=== PATIENT | female | born 1995 | race Two or more races ===

== ENCOUNTER 2020-11-18 10:48 | Outpatient (REF) | payer OTHER, SELFPAY ==
[2020-11-18 11:07] LABS: COVID-19 Test Negative (Negative)
== END 2020-11-18 10:49 | disposition home or self-care (01) ==
LOC: HO.EMPCOV 10:48
PROVIDERS: Visit Provider Internal Medicine
DX: Z20.822 Contact with and (suspected) exposure to COVID-19 (principal)
CPT/HCPCS: 36415; 87635; C9803

== ENCOUNTER 2020-11-24 07:45 | Outpatient (REF) | payer OTHER, SELFPAY ==
[2020-11-24 08:08] LABS: COVID-19 Test Negative (Negative)
== END 2020-11-24 07:46 | disposition home or self-care (01) ==
LOC: HO.EMPCOV 07:45
PROVIDERS: Visit Provider Internal Medicine
DX: Z20.822 Contact with and (suspected) exposure to COVID-19 (principal)
CPT/HCPCS: 36415; 87635; C9803

== ENCOUNTER 2020-12-28 08:38 | Outpatient (REF) | payer OTHER, SELFPAY ==
[2020-12-28 08:58] LABS: COVID-19 Test Negative (Negative)
== END 2020-12-28 08:39 | disposition home or self-care (01) ==
LOC: HO.EMPCOV 08:38
PROVIDERS: Visit Provider Internal Medicine
DX: Z20.822 Contact with and (suspected) exposure to COVID-19 (principal)
CPT/HCPCS: 36415; 87635; C9803

== ENCOUNTER 2021-02-23 08:47 | Outpatient (REF) | payer OTHER, SELFPAY ==
[2021-02-23 09:25] LABS: COVID-19 Test Negative (Negative)
== END 2021-02-23 08:48 | disposition home or self-care (01) ==
LOC: HO.EMPCOV 08:47
PROVIDERS: Visit Provider Internal Medicine
DX: Z20.822 Contact with and (suspected) exposure to COVID-19 (principal)
CPT/HCPCS: 36415; 87635; C9803

== ENCOUNTER 2021-03-11 20:34 | Emergency (ER) | payer SELFPAY ==
[2021-03-11 20:49] VITALS: BP 139/58; PULSE 77; RESP 18; TEMP 37; O2SAT 95; BMI 31.6
[2021-03-11 22:13] LABS: MANUAL DIFF FLAG NO
[2021-03-11 22:15] LABS: Basophils Percent Auto 0.2 % (0-2); Eosinophils Absolute Auto 0.1 X10*3/uL (0.0-0.4); Eosinophils Percent Auto 0.9 % (0-4); Hematocrit 41.8 % (37-47); Hemoglobin 13.4 g/dl (12.0-16.0); Imm Gran Abs Auto 0.04 X10*3/uL (0.00-0.03); Imm Gran Pct Auto 0.3 % (0.0-0.4); Lymphocytes Percent Auto 25.8 % (20-40); Mean Corpuscular HGB Conc 32.1 g/dl (31.0-35.0); Mean Corpuscular Hemoglobin 28.5 pg (27.0-33.0); Mean Corpuscular Volume 88.7 fL (80-98); Mean Platelet Volume 9.2 fL (9.4-12.3); Monocytes Absolute Auto 0.5 X10*3/uL (0.1-1.2); Monocytes Percent Auto 4.5 % (2-11); Neutrophils Percent Auto 68.3 % (45-73); Platelet Count 326 X10*3/uL (160-400); Red Blood Count 4.71 X10*6/uL (4.20-5.50); Red Cell Distribution Width 13.4 % (11.0-16.0); White Blood Count 11.7 X10*3/uL (4.8-10.8)
[2021-03-11 22:28] LABS: UPreg QC Valid YES; Urine Pregnancy NEGATIVE (NEGATIVE)
[2021-03-11 22:29] LABS: Appearance Urine CLEAR; Color Urine STRAW; Glucose Urine UA NEG (NEG); Leukocyte Esterase Urine NEG (NEG); Nitrite Urine NEG (NEG); Specific Gravity - Urine 1.015 (1.005-1.025); Urine Blood NEG (NEG); Urine Ketones NEG (NEG); Urine Protein NEG (NEG-TRACE)
[2021-03-11 22:45] LABS: Alanine Aminotransferase 20 U/L (0-31); Albumin Level 4.5 g/dL (3.5-5.0); Alkaline Phosphatase 92 U/L (39-117); Anion Gap 13 (12-20); Aspartate Amino Transferase 16 U/L (5-31); Bilirubin Total 0.5 mg/dL (0.0-1.0); Blood Urea Nitrogen 9 mg/dL (9-16); Calcium 9.8 mg/dL (8.4-10.2); Carbon Dioxide 25 mmol/L (22-29); Chloride 105 mmol/L (96-108); Creatinine Clr Calc Pharmacy 126.6; Estimated Glomerular Filt Rate > 60; Glucose Random 93 mg/dL (60-115); Potassium 3.9 mmol/L (3.3-5.1); Sodium 139 mmol/L (135-145); Total Protein 7.7 g/dL (6.5-8.0)
--- NOTE | 2021-03-11 23:03 | ED_ITS ---
HPI - General Adult General Chief complaint: General Medical Stated complaint: Blood in stools Time Seen by Provider: 03/11/21 21:40 Source: patient Mode of arrival: ambulatory History of Present Illness HPI narrative: This is a 26-year-old female without significant past medical history who reports vaginal discomfort for 3 weeks, she is unable to describe the discomfort further other than itching, and denies any associated fever, chills, sore throat, shortness of breath, GI symptoms. In addition, she describes multiple episodes of diarrhea today with the last episode describing some small amount of blood on the toilet paper. Otherwise, she denies any nausea, vomiting, abdominal pain, back pain. LMP-1.5 years ago (has a Nexplanon in place). Related Data Previous Rx's Medication Instructions Recorded amoxicillin 875 mg-potassium 1 tab PO BID 10 Days #20 tab 02/23/21 clavulanate 125 mg tablet dexamethasone 4 mg tablet 10 mg PO DAILY 1 Days #3 tab 02/23/21 Allergies Allergy/AdvReac Type Severity Reaction Status Date / Time No Known Allergies Allergy Verified 03/11/21 20:56 Review of Systems Review of Systems: Pertinent positives and negatives as stated in HPI 10 point review of systems otherwise negative. PMFSH Past Medical History Source: nursing notes reviewed Social History Social History Alcohol intake: never Smoking Status: Never smoker Use of substances other than those prescribed or required for medical reasons: No Advance Directives: No Patient : No Physical Exam Vital Signs: Vital Signs: Last Vital Signs Temp 98.6 F 03/11/21 20:49 Pulse 77 03/11/21 20:49 Resp 18 03/11/21 20:49 BP 139/58 L 03/11/21 20:49 Pulse Ox 95 03/11/21 20:49 Body Mass Index 31.6 VITAL SIGNS: Reviewed. GENERAL: Well developed, well nourished, in no acute distress. HEAD: Normocephalic/atraumatic EYES: PERRLA, EOMI OROPHARYNX: no oral lesions noted, posterior pharynx clear NECK: Supple, no adenopathy LUNGS: Normal breath sounds. No adventitious sounds or accessory muscle use. S pO2<95> CARDIOVASCULAR: Regular rate and rhythm without noted murmurs ABDOMEN: Soft, non-tender, non-distended with bowel sounds. NEUROLOGIC: Alert and oriented x 4. Course Course Course Narrative: 26-year-old female with history and clinical presentation of multiple medical concerns. Will evaluate with basic labs and urinalysis but feel that in the absence of dehydration patient is able to be discharged as the diarrhea will likely be self-limiting and patient has been able to tolerate liquids and solids without difficulty. Suspect that the small amount of blood on wiping after bowel movement is secondary to minor/transient hemorrhoid. Patient will be empirically treated with a single dose of Diflucan for vaginal itching. Patient discharged in stable condition after review of all investigations negative for any acute findings. Medical Decision Making Lab Data Result diagrams: 03/11/21 22:07 03/11/21 22:07 Labs: Lab Results 03/11/21 03/11/21 03/11/21 Range/Units 22:07 22:07 22:07 WBC 11.7 H (4.8-10.8) X10*3/uL RBC 4.71 (4.20-5.50) X10*6/uL Hgb 13.4 (12.0-16.0) g/dl Hct 41.8 (37-47) % MCV 88.7 (80-98) fL MCH 28.5 (27.0-33.0) pg MCHC 32.1 (31.0-35.0) g/dl RDW 13.4 (11.0-16.0) % Plt Count 326 (160-400) X10*3/uL MPV 9.2 L (9.4-12.3) fL Immature Gran % (Auto) 0.3 (0.0-0.4) % Neut % (Auto) 68.3 (45-73) % Lymph % (Auto) 25.8 (20-40) % [place] % (Auto) 4.5 (2-11) % Eos % (Auto) 0.9 (0-4) % Baso % (Auto) 0.2 (0-2) % Lymph # (Auto) 3.0 (1.2-4.9) X10*3/uL [place] # (Auto) 0.5 (0.1-1.2) X10*3/uL Eos # (Auto) 0.1 (0.0-0.4) X10*3/uL Baso # (Auto) 0.0 (0.0-0.2) X10*3/uL Abs Immat Gran (auto) 0.04 H (0.00-0.03) X10*3/uL Absolute Neuts (auto) 8.0 (2.0-8.3) X10*3/uL Absolute Nucleated RBC 0.000 (0.0-0.012) X10*3/uL Nucleated RBC % (auto) 0.0 (0.0-0.2) /100WBC Sodium 139 (135-145) mmol/L Potassium 3.9 (3.3-5.1) mmol/L Chloride 105 (96-108) mmol/L Carbon Dioxide 25 (22-29) mmol/L Anion Gap 13 (12-20) BUN 9 (9-16) mg/dL Creatinine 0.71 (0.5-1.4) mg/dL Estim Creat Clear Calc 126.6 Estimated GFR > 60 Random Glucose 93 (60-115) mg/dL Calcium 9.8 (8.4-10.2) mg/dL Total Bilirubin 0.5 (0.0-1.0) mg/dL AST 16 (5-31) U/L ALT 20 (0-31) U/L Alkaline Phosphatase 92 (39-117) U/L Total Protein 7.7 (6.5-8.0) g/dL Albumin 4.5 (3.5-5.0) g/dL Urine Color STRAW Urine Appearance CLEAR Urine pH 7.0 (5.0-8.0) Ur Specific [place] 1.015 (1.005-1.025) Urine Protein NEG (NEG-TRACE) MG/DL Urine Glucose (UA) NEG (NEG) MG/DL Urine Ketones NEG (NEG) MG/DL Urine Blood NEG (NEG) Urine Nitrite NEG (NEG) Ur Leukocyte Esterase NEG (NEG) Urine Test (NEGATIVE) 03/11/21 Range/Units 22:07 WBC (4.8-10.8) X10*3/uL RBC (4.20-5.50) X10*6/uL Hgb (12.0-16.0) g/dl Hct (37-47) % MCV (80-98) fL MCH (27.0-33.0) pg MCHC (31.0-35.0) g/dl RDW (11.0-16.0) % Plt Count (160-400) X10*3/uL MPV (9.4-12.3) fL Immature Gran % (Auto) (0.0-0.4) % Neut % (Auto) (45-73) % Lymph % (Auto) (20-40) % [place] % (Auto) (2-11) % Eos % (Auto) (0-4) % Baso % (Auto) (0-2) % Lymph # (Auto) (1.2-4.9) X10*3/uL [place] # (Auto) (0.1-1.2) X10*3/uL Eos # (Auto) (0.0-0.4) X10*3/uL Baso # (Auto) (0.0-0.2) X10*3/uL Abs Immat Gran (auto) (0.00-0.03) X10*3/uL Absolute Neuts (auto) (2.0-8.3) X10*3/uL Absolute Nucleated RBC (0.0-0.012) X10*3/uL Nucleated RBC % (auto) (0.0-0.2) /100WBC Sodium (135-145) mmol/L Potassium (3.3-5.1) mmol/L Chloride (96-108) mmol/L Carbon Dioxide (22-29) mmol/L Anion Gap (12-20) BUN (9-16) mg/dL Creatinine (0.5-1.4) mg/dL Estim Creat Clear Calc Estimated GFR Random Glucose (60-115) mg/dL Calcium (8.4-10.2) mg/dL Total Bilirubin (0.0-1.0) mg/dL AST (5-31) U/L ALT (0-31) U/L Alkaline Phosphatase (39-117) U/L Total Protein (6.5-8.0) g/dL Albumin (3.5-5.0) g/dL Urine Color Urine Appearance Urine pH (5.0-8.0) Ur Specific [place] (1.005-1.025) Urine Protein (NEG-TRACE) MG/DL Urine Glucose (UA) (NEG) MG/DL Urine Ketones (NEG) MG/DL Urine Blood (NEG) Urine Nitrite (NEG) Ur Leukocyte Esterase (NEG) Urine Test NEGATIVE (NEGATIVE) Discharge Plan Discharge Clinical Impression: Vaginitis Patient Disposition: Home, Self-Care Instructions: Yeast Infection (ED) Additional Instructions: Return to the emergency room for any acute worsening symptoms. You must follow up with the primary care provider in the next 2-3 days. Prescriptions: No Action amoxicillin-pot clavulanate [Augmentin] 875-125 mg tablet 1 tab PO BID 10 Days Qty: 20 RF: 0 dexamethasone [Decadron] 4 mg tablet 10 mg PO DAILY 1 Days Qty: 3 RF: 0 Referrals: Physician,None [Primary Care Provider] - 2 days
[2021-03-11] MEDS: Fluconazole 150 MG TABLET PO (23:35)
== END 2021-03-11 23:41 | disposition home or self-care (01) ==
PROVIDERS: Emergency Provider Student in an Organized Health Care Education/Training Program
DX: N76.0 Acute vaginitis (principal); K92.1 Melena; Z79.899 Other long term (current) drug therapy
CPT/HCPCS: 36415; 80053; 81003; 81025; 85025; 99284

== ENCOUNTER 2021-05-20 10:20 | Emergency (ER) | payer OTHER, SELFPAY ==
--- NOTE | ~2021-05-20 | CT_ITS ---
EXAMINATION: CT ABDOMEN AND PELVIS WITHOUT CONTRAST CLINICAL INFORMATION: Right flank pain. COMPARISON: None TECHNIQUE: Multidetector volumetric imaging was performed from the superior aspect of the liver through the pubic symphysis. Sagittal and coronal reformatted images were obtained on the technologist's workstation. This CT examination was performed using dose optimization techniques as appropriate, variously including the following: *Automated exposure control *Adjustment of mA and/or kV according to patient size (this includes techniques or standardized protocols for targeted exams where dose is matched to indication/reason for exam; i.e. extremities or head) *Use of iterative reconstruction technique DLP: 796 mGy-cm FINDINGS: LUNG BASES: The visualized lung bases are unremarkable. LIVER, GALLBLADDER, AND BILIARY TREE: The liver is normal in size, shape, and attenuation. No focal hepatic lesion or biliary ductal dilatation is present. The gallbladder is unremarkable with no evidence of radiopaque gallstones, gallbladder wall thickening, or obvious pericholecystic inflammatory changes. PANCREAS: Unremarkable. SPLEEN: Unremarkable. ADRENAL GLANDS: Unremarkable. KIDNEYS AND URETERS: The kidneys are normal in size, shape, and attenuation. No hydronephrosis, hydroureter, or calculi seen. No perinephric stranding. BLADDER: Nondistended and unremarkable. GASTROINTESTINAL TRACT: The small and large bowel are unremarkable. The appendix is unremarkable. ABDOMINAL WALL: No significant hernia is appreciated. LYMPH NODES: Normal. VASCULAR: Unremarkable. PELVIC VISCERA: The uterus and adnexa are unremarkable. OSSEOUS STRUCTURES: Unremarkable. CT/CT abdomen pelvis wo con IMPRESSION: 1. No renal or ureteral stone. No hydronephrosis or hydroureter. Nondistended and unremarkable urinary bladder. 2. Otherwise unremarkable examination.
[2021-05-20 10:24] VITALS: BP 128/65; PULSE 70; RESP 16; TEMP 36.8; O2SAT 99; BMI 30.7
--- NOTE | 2021-05-20 10:54 | ED_ITS ---
HPI - Abdominal Pain General Chief Complaint: Abdominal Pain Stated Complaint: abd pain Time Seen by Provider: 05/20/21 10:36 Source: patient Mode of arrival: ambulatory Limitations: no limitations History of Present Illness HPI narrative: Patient comes to emergency room complaining of right-sided flank pain, right lower quadrant pain, diarrhea and vomiting. Patient states approximately at 01:30 in the morning, patient had a sudden sharp intense pain in the right flank, had diarrhea and vomiting at the same time, the symptoms lasted for about 30 minutes and then they self-resolved. Patient went back to sleep. When she woke up in the morning, she had another similar episode. Patient has never had kidney stones, but states that multiple family members have history of kidney stones. Patient denies fever or chills Related Data Previous Rx's Medication Instructions Recorded amoxicillin 875 mg-potassium 1 tab PO BID 10 Days #20 tab 02/23/21 clavulanate 125 mg tablet dexamethasone 4 mg tablet 10 mg PO DAILY 1 Days #3 tab 02/23/21 hyoscyamine sulfate 0.125 mg PO QID PRN #7 tab 05/20/21 Allergies Allergy/AdvReac Type Severity Reaction Status Date / Time No Known Allergies Allergy Verified 03/11/21 20:56 Review of Systems Review of Systems Constitutional : No Weight loss, No Fever, No Chills, No Night Sweats, No Fatigue, No Malaise ENT/Mouth : No Hearing loss, No Ear Pain, No Nasal Congestion, No Sinus Pain, No Hoarseness, No sore throat, No Rhinorrhea, No Swallowing Difficulty Eyes: No Eye Pain, No Swelling, No Redness, No Foreign Body, No Discharge, No Vision Changes Cardiovascular : No Chest Pain, No SOB, No Dyspnea on Exertion, No Orthopnea, No Edema, No Palpitations Respiratory : No Cough, No Sputum, No Wheezing, No Smoke Exposure, No Dyspnea Gastrointestinal : Complaining of multiple episodes of nausea vomiting and diarrhea, No Constipation, complaining of intermittent sharp pain in the right flank, No Hematochezia, No Melena Genitourinary : no irregular bleeding, No Dysuria, No Urinary Frequency, No Hematuria, No Urinary Incontinence, No Urgency, No Flank Pain, No Urinary Flow Changes, No Hesitancy Musculoskeletal : No joint pain, No Myalgias, No Joint Swelling Skin : No Skin Lesions, No rash Neuro : No Weakness, No Numbness, No Paresthesias, No Loss of Consciousness, No Dizziness, No Headache Psych : No Anxiety/Panic, No Depression, No SI/HI/AH/VH, No Social Issues, Heme/Lymph: No Bruising, No Bleeding,No Lymphadenopathy Endocrine : No Polyuria, No Polydipsia, No Temperature Intolerance Physical Exam Vital Signs: Vital Signs: Last Vital Signs Temp 98.3 F 05/20/21 10:24 Pulse 68 05/20/21 11:49 Resp 16 05/20/21 10:24 BP 115/60 05/20/21 11:49 Pulse Ox 95 05/20/21 11:49 Body Mass Index 30.7 Appearance: Alert. Oriented X3. No acute distress. Well-appearing Eyes: Pupils equal, round and reactive to light. ENT: Pharynx normal. Neck: Normal inspection. Neck supple. No lymph nodes noted. No crepitus CVS: Normal heart rate and rhythm. Pulses normal. Normal S1 and S2 Respiratory: No respiratory distress. Breath sounds normal. No Wheezing. No rales Abdomen: Soft and nontender. No rigidity. No distention. No guarding, no rebound. Seems to have mild CVA tenderness bilaterally Skin: Skin warm and dry. Normal skin color. Normal skin turgor. Extremities: No lower extremity edema. No lower extremity edema. No Lacerations. No Rash Neuro: Oriented X 3. No motor deficit. No sensory deficit. Moving all extermities. No slurred speech. Course Reevaluation(s) Reevaluation #2: Patient is asymptomatic. Not having any abdominal pain, vomiting or diarrhea. I discussed labs and CT scan with the patient, no acute findings. MDM - Abdominal Pain Lab Data Result diagrams: 05/20/21 11:07 05/20/21 11:07 Labs: Lab Results 05/20/21 05/20/21 05/20/21 Range/Units 10:41 10:41 11:07 WBC 9.4 (4.8-10.8) X10*3/uL RBC 4.66 (4.20-5.50) X10*6/uL Hgb 13.8 (12.0-16.0) g/dl Hct 41.2 (37-47) % MCV 88.4 (80-98) fL MCH 29.6 (27.0-33.0) pg MCHC 33.5 (31.0-35.0) g/dl RDW 13.3 (11.0-16.0) % Plt Count 305 (160-400) X10*3/uL MPV 9.1 L (9.4-12.3) fL Immature Gran % (Auto) 0.2 (0.0-0.4) % Neut % (Auto) 69.2 (45-73) % Lymph % (Auto) 25.0 (20-40) % [place] % (Auto) 4.7 (2-11) % Eos % (Auto) 0.7 (0-4) % Baso % (Auto) 0.2 (0-2) % Lymph # (Auto) 2.4 (1.2-4.9) X10*3/uL [place] # (Auto) 0.4 (0.1-1.2) X10*3/uL Eos # (Auto) 0.1 (0.0-0.4) X10*3/uL Baso # (Auto) 0.0 (0.0-0.2) X10*3/uL Abs Immat Gran (auto) 0.02 (0.00-0.03) X10*3/uL Absolute Neuts (auto) 6.5 (2.0-8.3) X10*3/uL Absolute Nucleated RBC 0.000 (0.0-0.012) X10*3/uL Nucleated RBC % (auto) 0.0 (0.0-0.2) /100WBC Sodium (135-145) mmol/L Potassium (3.3-5.1) mmol/L Chloride (96-108) mmol/L Carbon Dioxide (22-29) mmol/L Anion Gap (12-20) BUN (9-16) mg/dL Creatinine (0.5-1.4) mg/dL Estim Creat Clear Calc Estimated GFR Random Glucose (60-115) mg/dL Calcium (8.4-10.2) mg/dL Total Bilirubin (0.0-1.0) mg/dL Direct Bilirubin (0.0-0.5) mg/dL AST (5-31) U/L ALT (0-31) U/L Alkaline Phosphatase (39-117) U/L Total Protein (6.5-8.0) g/dL Albumin (3.5-5.0) g/dL Urine Color YELLOW Urine Appearance CLEAR Urine pH 6.0 (5.0-8.0) Ur Specific [place] 1.025 (1.005-1.025) Urine Protein NEG (NEG-TRACE) MG/DL Urine Glucose (UA) NEG (NEG) MG/DL Urine Ketones NEG (NEG) MG/DL Urine Blood NEG (NEG) Urine Nitrite NEG (NEG) Ur Leukocyte Esterase NEG (NEG) Urine Test NEGATIVE (NEGATIVE) 05/20/21 Range/Units 11:07 WBC (4.8-10.8) X10*3/uL RBC (4.20-5.50) X10*6/uL Hgb (12.0-16.0) g/dl Hct (37-47) % MCV (80-98) fL MCH (27.0-33.0) pg MCHC (31.0-35.0) g/dl RDW (11.0-16.0) % Plt Count (160-400) X10*3/uL MPV (9.4-12.3) fL Immature Gran % (Auto) (0.0-0.4) % Neut % (Auto) (45-73) % Lymph % (Auto) (20-40) % [place] % (Auto) (2-11) % Eos % (Auto) (0-4) % Baso % (Auto) (0-2) % Lymph # (Auto) (1.2-4.9) X10*3/uL [place] # (Auto) (0.1-1.2) X10*3/uL Eos # (Auto) (0.0-0.4) X10*3/uL Baso # (Auto) (0.0-0.2) X10*3/uL Abs Immat Gran (auto) (0.00-0.03) X10*3/uL Absolute Neuts (auto) (2.0-8.3) X10*3/uL Absolute Nucleated RBC (0.0-0.012) X10*3/uL Nucleated RBC % (auto) (0.0-0.2) /100WBC Sodium 139 (135-145) mmol/L Potassium 4.7 D (3.3-5.1) mmol/L Chloride 106 (96-108) mmol/L Carbon Dioxide 26 (22-29) mmol/L Anion Gap 12 (12-20) BUN 10 (9-16) mg/dL Creatinine 0.76 (0.5-1.4) mg/dL Estim Creat Clear Calc 121.0 Estimated GFR > 60 Random Glucose 95 (60-115) mg/dL Calcium 10.3 H (8.4-10.2) mg/dL Total Bilirubin 0.9 (0.0-1.0) mg/dL Direct Bilirubin 0.3 (0.0-0.5) mg/dL AST 15 (5-31) U/L ALT 17 (0-31) U/L Alkaline Phosphatase 94 (39-117) U/L Total Protein 7.8 (6.5-8.0) g/dL Albumin 4.5 (3.5-5.0) g/dL Urine Color Urine Appearance Urine pH (5.0-8.0) Ur Specific [place] (1.005-1.025) Urine Protein (NEG-TRACE) MG/DL Urine Glucose (UA) (NEG) MG/DL Urine Ketones (NEG) MG/DL Urine Blood (NEG) Urine Nitrite (NEG) Ur Leukocyte Esterase (NEG) Urine Test (NEGATIVE) Imaging Data CT scan - abdomen: Radiologist's impression: FINDINGS: LUNG BASES: The visualized lung bases are unremarkable. LIVER, GALLBLADDER, AND BILIARY TREE: The liver is normal in size, shape, and attenuation. No focal hepatic lesion or biliary ductal dilatation is present. The gallbladder is unremarkable with no evidence of radiopaque gallstones, gallbladder wall thickening, or obvious pericholecystic inflammatory changes. PANCREAS: Unremarkable. SPLEEN: Unremarkable. ADRENAL GLANDS: Unremarkable. KIDNEYS AND URETERS: The kidneys are normal in size, shape, and attenuation. No hydronephrosis, hydroureter, or calculi seen. No perinephric stranding. BLADDER: Nondistended and unremarkable. GASTROINTESTINAL TRACT: The small and large bowel are unremarkable. The appendix is unremarkable. ABDOMINAL WALL: No significant hernia is appreciated. LYMPH NODES: Normal. VASCULAR: Unremarkable. PELVIC VISCERA: The uterus and adnexa are unremarkable. OSSEOUS STRUCTURES: Unremarkable. CT/CT abdomen pelvis wo con IMPRESSION: 1. No renal or ureteral stone. No hydronephrosis or hydroureter. Nondistended and unremarkable urinary bladder. 2. Otherwise unremarkable examination. Discharge Plan Discharge Clinical Impression: Abdominal pain, Flank pain Patient Disposition: Home, Self-Care Instructions: Abdominal Pain (ED), Flank Pain (ED) Additional Instructions: Please follow-up with your primary care physician tomorrow. If you have any worsening or new symptoms, please return to the emergency room or call 911 Prescriptions: New hyoscyamine sulfate 0.125 mg tablet 0.125 mg PO QID PRN (Reason: dyspepsia) Qty: 7 RF: 0 No Action amoxicillin-pot clavulanate [Augmentin] 875-125 mg tablet 1 tab PO BID 10 Days Qty: 20 RF: 0 dexamethasone [Decadron] 4 mg tablet 10 mg PO DAILY 1 Days Qty: 3 RF: 0 PMFSH Social History Social History Alcohol intake: never Advance Directives: No Advance Directives Information Provided: No
[2021-05-20 10:55] LABS: Glucose Urine UA NEG (NEG); Leukocyte Esterase Urine NEG (NEG); Nitrite Urine NEG (NEG); Specific Gravity - Urine 1.025 (1.005-1.025); Urine Blood NEG (NEG); Urine Ketones NEG (NEG); Urine Protein NEG (NEG-TRACE)
[2021-05-20 11:00] LABS: Appearance Urine CLEAR; Color Urine YELLOW
[2021-05-20 11:01] LABS: UPreg QC Valid YES; Urine Pregnancy NEGATIVE (NEGATIVE)
[2021-05-20 11:15] LABS: MANUAL DIFF FLAG NO
[2021-05-20 11:16] LABS: Basophils Percent Auto 0.2 % (0-2); Eosinophils Absolute Auto 0.1 X10*3/uL (0.0-0.4); Eosinophils Percent Auto 0.7 % (0-4); Hematocrit 41.2 % (37-47); Hemoglobin 13.8 g/dl (12.0-16.0); Imm Gran Abs Auto 0.02 X10*3/uL (0.00-0.03); Imm Gran Pct Auto 0.2 % (0.0-0.4); Lymphocytes Absolute Auto 2.4 X10*3/uL (1.2-4.9); Mean Corpuscular HGB Conc 33.5 g/dl (31.0-35.0); Mean Corpuscular Hemoglobin 29.6 pg (27.0-33.0); Mean Corpuscular Volume 88.4 fL (80-98); Mean Platelet Volume 9.1 fL (9.4-12.3); Monocytes Absolute Auto 0.4 X10*3/uL (0.1-1.2); Monocytes Percent Auto 4.7 % (2-11); Neutrophils Absolute Auto 6.5 X10*3/uL (2.0-8.3); Neutrophils Percent Auto 69.2 % (45-73); Platelet Count 305 X10*3/uL (160-400); Red Blood Count 4.66 X10*6/uL (4.20-5.50); Red Cell Distribution Width 13.3 % (11.0-16.0); White Blood Count 9.4 X10*3/uL (4.8-10.8)
[2021-05-20 11:46] LABS: Alanine Aminotransferase 17 U/L (0-31); Albumin Level 4.5 g/dL (3.5-5.0); Alkaline Phosphatase 94 U/L (39-117); Anion Gap 12 (12-20); Aspartate Amino Transferase 15 U/L (5-31); Bilirubin Direct 0.3 mg/dL (0.0-0.5); Bilirubin Total 0.9 mg/dL (0.0-1.0); Blood Urea Nitrogen 10 mg/dL (9-16); Calcium 10.3 mg/dL (8.4-10.2); Carbon Dioxide 26 mmol/L (22-29); Chloride 106 mmol/L (96-108); Estimated Glomerular Filt Rate > 60; Glucose Random 95 mg/dL (60-115); Potassium 4.7 mmol/L (3.3-5.1); Sodium 139 mmol/L (135-145); Total Protein 7.8 g/dL (6.5-8.0)
[2021-05-20 11:49] VITALS: BP 115/60; PULSE 68; O2SAT 95
== END 2021-05-20 12:54 | disposition home or self-care (01) ==
PROVIDERS: Emergency Provider Emergency Medicine
DX: R10.9 Unspecified abdominal pain (principal)
CPT/HCPCS: 36415; 74176; 80048; 80076; 81003; 81025; 85025; 99283; 99284

== ENCOUNTER 2021-08-02 20:20 | Emergency (ER) | payer OTHER, SELFPAY ==
--- NOTE | 2021-08-02 | ECG_ITS ---
Test Reason : CHEST PAIN Blood Pressure : / mmHG Vent. Rate : 086 BPM Atrial Rate : 086 BPM P-R Int : 146 ms QRS Dur : 082 ms QT Int : 364 ms P-R-T Axes : 017 013 011 degrees QTc Int : 435 ms Normal sinus rhythm Normal ECG No previous ECGs available Referred By: Generic ED Physician Electronically Signed By:KELI ROBERT
--- NOTE | ~2021-08-02 | XR_ITS ---
EXAMINATION: PORTABLE CHEST 1 VIEW CLINICAL INFORMATION: CHEST PAIN . COMPARISON: No recent pertinent prior studies are available for comparison. TECHNIQUE: Portable frontal view of the chest was obtained. FINDINGS: The lungs are well expanded. No focal infiltrate, effusion, edema, or pneumothorax. Cardiac and mediastinal silhouettes are within normal limits for technique. No acute bony abnormality seen. XR/XR chest 1V IMPRESSION: No evidence of acute disease.
--- NOTE | 2021-08-02 20:28 | PC.NURSE ---
EKG was done by this pct at 2025.
[2021-08-02 21:25] VITALS: BP 115/67; PULSE 89; RESP 16; TEMP 36.8; O2SAT 98; BMI 33.9
[2021-08-02 21:30] LABS: MANUAL DIFF FLAG NO
[2021-08-02 21:35] LABS: Basophils Percent Auto 0.3 % (0-2); Eosinophils Absolute Auto 0.1 X10*3/uL (0.0-0.4); Eosinophils Percent Auto 1.5 % (0-4); Hematocrit 43.5 % (37-47); Hemoglobin 14.6 g/dl (12.0-16.0); Imm Gran Abs Auto 0.01 X10*3/uL (0.00-0.03); Imm Gran Pct Auto 0.1 % (0.0-0.4); Lymphocytes Absolute Auto 1.2 X10*3/uL (1.2-4.9); Lymphocytes Percent Auto 16.4 % (20-40); Mean Corpuscular HGB Conc 33.6 g/dl (31.0-35.0); Mean Corpuscular Hemoglobin 29.1 pg (27.0-33.0); Mean Corpuscular Volume 86.8 fL (80-98); Mean Platelet Volume 9.1 fL (9.4-12.3); Monocytes Absolute Auto 0.7 X10*3/uL (0.1-1.2); Monocytes Percent Auto 9.3 % (2-11); Neutrophils Absolute Auto 5.3 X10*3/uL (2.0-8.3); Neutrophils Percent Auto 72.4 % (45-73); Platelet Count 299 X10*3/uL (160-400); Red Blood Count 5.01 X10*6/uL (4.20-5.50); Red Cell Distribution Width 13.1 % (11.0-16.0); White Blood Count 7.3 X10*3/uL (4.8-10.8)
[2021-08-02 21:50] LABS: Alanine Aminotransferase 17 U/L (0-31); Albumin Level 4.6 g/dL (3.5-5.0); Alkaline Phosphatase 98 U/L (39-117); Anion Gap 13 (12-20); Aspartate Amino Transferase 18 U/L (5-31); Bilirubin Total 0.5 mg/dL (0.0-1.0); Blood Urea Nitrogen 9 mg/dL (9-16); Carbon Dioxide 23 mmol/L (22-29); Chloride 107 mmol/L (96-108); Creatinine Clr Calc Pharmacy 112.3; Estimated Glomerular Filt Rate > 60; Glucose Random 93 mg/dL (60-115); Potassium 4.2 mmol/L (3.3-5.1); Sodium 139 mmol/L (135-145); Total Protein 7.9 g/dL (6.5-8.0)
[2021-08-02 21:53] LABS: Troponin-I High Sensitivity < 3.5 ng/L (<3.5-17.0)
[2021-08-02 22:18] VITALS: BP 118/63; PULSE 87; RESP 18; TEMP 37.1; O2SAT 99
[2021-08-02 23:09] LABS: Influenza A PCR NEGATIVE (Negative); Influenza B PCR NEGATIVE (Negative); Resp Syncy Virus RNA Qual PCR NEGATIVE (Negative)
[2021-08-02] MEDS: Ibuprofen 800 MG TABLET PO (23:10)
[2021-08-02 23:12] LABS: SARS COV2 PCR INHOUSE POSITIVE (Negative)
--- NOTE | 2021-08-02 23:18 | ED_ITS ---
HPI - URI/Sore Throat General Chief Complaint: Upper Respiratory Symptoms Stated Complaint: Chest pain Time Seen by Provider: 08/02/21 21:58 Source: patient Mode of arrival: ambulatory Limitations: no limitations History of Present Illness HPI Narrative: States past 2 days of generalized body aches slight cough calling discomfort in the chest. 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 States she is vaccinated. MD elicited complaint: cough Onset (ago): day(s) Severity: moderate Exacerbating factors: nothing Context: sick contacts Associated symptoms: chills Treatments prior to arrival: none Related Data Previous Rx's Medication Instructions Recorded amoxicillin 875 mg-potassium 1 tab PO BID 10 Days #20 tab 02/23/21 clavulanate 125 mg tablet (Augmentin) dexamethasone 4 mg tablet 10 mg PO DAILY 1 Days #3 tab 02/23/21 (Decadron) hyoscyamine sulfate 0.125 mg tablet 0.125 mg PO QID PRN #7 tab 05/20/21 Allergies Allergy/AdvReac Type Severity Reaction Status Date / Time No Known Allergies Allergy Verified 03/11/21 20:56 Review of Systems Review of Systems: Constitutional: No Weight loss, No Fever, + Chills, No Night Sweats, No Fatigue, No Malaise ENT/Mouth: No Hearing loss, No Ear Pain, No Nasal Congestion, No Sinus Pain, No Hoarseness, No sore throat, No Rhinorrhea, No Swallowing Difficulty Eyes: No Eye Pain, No Swelling, No Redness, No Foreign Body, No Discharge, No Vision Changes Cardiovascular: + Chest Pain, No SOB, No Dyspnea on Exertion, No Orthopnea, No Edema, No Palpitations Respiratory: + Cough, No Sputum, No Wheezing, No Dyspnea Gastrointestinal: No Nausea, No Vomiting, No Diarrhea, No Constipation, No abdominal Pain, No Hematochezia, No Melena Genitourinary: no irregular bleeding, No Dysuria, No Urinary Frequency, No Hematuria, No Urinary Incontinence, No Urgency, No Flank Pain, No Urinary Flow Changes, No Hesitancy Musculoskeletal: No joint pain, No Myalgias, No Joint Swelling Skin: No Skin Lesions, No rash Neuro: No Weakness, No Numbness, No Paresthesias, No Loss of Consciousness, No Dizziness, No Headache Psych: No Social Issues Heme/Lymph: No Bruising, No Bleeding,No Lymphadenopathy Endocrine: No Polyuria, No Polydipsia, No Temperature Intolerance Yes all other systems are reviewed and are negative [facility] Social History Social History Alcohol intake: never Patient Tobacco Use Status: Never used Tobacco Use of substances other than those prescribed or required for medical reasons: No Advance Directives: No Patient : No Physical Exam Vital Signs: Vital Signs: Last Vital Signs Temp 98.7 F 08/02/21 22:18 Pulse 87 08/02/21 22:18 Resp 18 08/02/21 22:18 BP 118/63 08/02/21 22:18 Pulse Ox 99 08/02/21 22:18 Body Mass Index 33.9 Const: General: cooperative and healthy appearing; No acute distress or intoxicated appearing Nutritional Appearance: average body habitus Amish entation/consciousness: patient oriented x3 HENMT: Head: Yes normal to inspection Ears: hearing grossly normal bilaterally Eyes: General: appearance normal, both eyes and all related structures Visual Rice: normal visual rice by confrontation Neck: Neck: Yes normal visual inspection, No positive Brudzinski's sign, No positive Kernig's sign and No tender Thyroid: Thyroid normal Chest: Chest palpation & inspection: normal inspection of the chest Resp: Effort & Inspection: normal respiratory effort Cardio: Jugular venous distension: no JVD Rate: regular rate Rhythm: regular rhythm Heart sounds: S1 normal heart sound present and S2 normal heart sound present GI: Inspection: Yes normal to inspection Percussion: Yes normal to percussion Auscultation: normal bowel sounds : General: Yes no CVA tenderness Back/Spine/Pelvis: Back: no CVA tenderness Skin: General skin exam: no rashes or lesions noted Neuro: General: patient oriented x3 Extrem: General: Yes normal to inspection Course Course Course Narrative: Labs overall reassuring, chest x-ray negative, assessment plan consistent with viral syndrome. The lung sounds clear to auscultation. Not tachycardic or hypoxic. COVID antigen negative given exposure in high suspicion PCR was done which was positive. Will discharge with CDC guidelines, return, follow-up instructions. Stable for discharge. MDM - URI/Sore Throat Lab Data Result diagrams: 08/02/21 21:26 08/02/21 21:26 Labs: Lab Results 08/02/21 08/02/21 08/02/21 Range/Units 21:26 21:26 21:26 WBC 7.3 (4.8-10.8) X10*3/uL RBC 5.01 (4.20-5.50) X10*6/uL Hgb 14.6 (12.0-16.0) g/dl Hct 43.5 (37-47) % MCV 86.8 (80-98) fL MCH 29.1 (27.0-33.0) pg MCHC 33.6 (31.0-35.0) g/dl RDW 13.1 (11.0-16.0) % Plt Count 299 (160-400) X10*3/uL MPV 9.1 L (9.4-12.3) fL Immature Gran % (Auto) 0.1 (0.0-0.4) % Neut % (Auto) 72.4 (45-73) % Lymph % (Auto) 16.4 L (20-40) % [place] % (Auto) 9.3 (2-11) % Eos % (Auto) 1.5 (0-4) % Baso % (Auto) 0.3 (0-2) % Lymph # (Auto) 1.2 (1.2-4.9) X10*3/uL [place] # (Auto) 0.7 (0.1-1.2) X10*3/uL Eos # (Auto) 0.1 (0.0-0.4) X10*3/uL Baso # (Auto) 0.0 (0.0-0.2) X10*3/uL Abs Immat Gran (auto) 0.01 (0.00-0.03) X10*3/uL Absolute Neuts (auto) 5.3 (2.0-8.3) X10*3/uL Absolute Nucleated RBC 0.000 (0.0-0.012) X10*3/uL Nucleated RBC % (auto) 0.0 (0.0-0.2) /100WBC Sodium 139 (135-145) mmol/L Potassium 4.2 (3.3-5.1) mmol/L Chloride 107 (96-108) mmol/L Carbon Dioxide 23 (22-29) mmol/L Anion Gap 13 (12-20) BUN 9 (9-16) mg/dL Creatinine 0.83 (0.5-1.4) mg/dL Estim Creat Clear Calc 112.3 Estimated GFR > 60 Random Glucose 93 (60-115) mg/dL Calcium 10.0 (8.4-10.2) mg/dL Total Bilirubin 0.5 (0.0-1.0) mg/dL AST 18 (5-31) U/L ALT 17 (0-31) U/L Alkaline Phosphatase 98 (39-117) U/L Troponin I High Sens < 3.5 (<3.5-17.0) ng/L Total Protein 7.9 (6.5-8.0) g/dL Albumin 4.6 (3.5-5.0) g/dL Coronavirus (PCR) (Negative) Influenza Type A (PCR) (Negative) Influenza Type B (PCR) (Negative) RSV RNA Qual (PCR) (Negative) 08/02/21 Range/Units 22:16 WBC (4.8-10.8) X10*3/uL RBC (4.20-5.50) X10*6/uL Hgb (12.0-16.0) g/dl Hct (37-47) % MCV (80-98) fL MCH (27.0-33.0) pg MCHC (31.0-35.0) g/dl RDW (11.0-16.0) % Plt Count (160-400) X10*3/uL MPV (9.4-12.3) fL Immature Gran % (Auto) (0.0-0.4) % Neut % (Auto) (45-73) % Lymph % (Auto) (20-40) % Mingo % (Auto) (2-11) % Eos % (Auto) (0-4) % Baso % (Auto) (0-2) % Lymph # (Auto) (1.2-4.9) X10*3/uL M[place] # (Auto) (0.1-1.2) X10*3/uL Eos # (Auto) (0.0-0.4) X10*3/uL Baso # (Auto) (0.0-0.2) X10*3/uL Abs Immat Gran (auto) (0.00-0.03) X10*3/uL Absolute Neuts (auto) (2.0-8.3) X10*3/uL Absolute Nucleated RBC (0.0-0.012) X10*3/uL Nucleated RBC % (auto) (0.0-0.2) /100WBC Sodium (135-145) mmol/L Potassium (3.3-5.1) mmol/L Chloride (96-108) mmol/L Carbon Dioxide (22-29) mmol/L Anion Gap (12-20) BUN (9-16) mg/dL Creatinine (0.5-1.4) mg/dL Estim Creat Clear Calc Estimated GFR Random Glucose (60-115) mg/dL Calcium (8.4-10.2) mg/dL Total Bilirubin (0.0-1.0) mg/dL AST (5-31) U/L ALT (0-31) U/L Alkaline Phosphatase (39-117) U/L Troponin I High Sens (<3.5-17.0) ng/L Total Protein (6.5-8.0) g/dL Albumin (3.5-5.0) g/dL Coronavirus (PCR) POSITIVE A (Negative) Influenza Type A (PCR) NEGATIVE (Negative) Influenza Type B (PCR) NEGATIVE (Negative) RSV RNA Qual (PCR) NEGATIVE (Negative) Discharge Plan Discharge Clinical Impression: COVID Patient Disposition: Home, Self-Care Instructions: COVID-19 (Coronavirus Disease 2019) (ED) Prescriptions: No Action hyoscyamine sulfate 0.125 mg tablet 0.125 mg PO QID PRN (Reason: dyspepsia) Qty: 7 RF: 0 amoxicillin-pot clavulanate [Augmentin] 875-125 mg tablet 1 tab PO BID 10 Days Qty: 20 RF: 0 dexamethasone [Decadron] 4 mg tablet 10 mg PO DAILY 1 Days Qty: 3 RF: 0 Referrals: Physician,None [Primary Care Provider] - 2 days (Work connection) Interventions: ED Discharge Assessment Last Done: 08/02/21 23:24
--- NOTE | 2021-08-02 23:30 | PC.NURSE ---
Pt alert and oriented x4, calm and cooperative. Pt states generalized body aches and back pain, meds given. Pt denies chest pain or SOB, pt remains on room air vitals stable. No fevers noted. Pt educated on dc. No IV in place.
== END 2021-08-02 23:32 | disposition home or self-care (01) ==
PROVIDERS: Nurse Practitioner Primary Care; Emergency Provider Emergency Medicine
DX: U07.1 COVID-19 (principal); R07.9 Chest pain, unspecified; R05 Cough; Z79.899 Other long term (current) drug therapy
CPT/HCPCS: 0241U; 36415; 71045; 80053; 84484; 85025; 93005; 99283; 99285

== ENCOUNTER 2021-08-10 09:15 | Emergency (ER) | payer OTHER, SELFPAY ==
--- NOTE | ~2021-08-10 | XR_ITS ---
EXAMINATION: XR CHEST CLINICAL INFORMATION: Cough COMPARISON: None TECHNIQUE: Frontal view of the chest was obtained. FINDINGS: The cardiac silhouette does not appear enlarged. Hilar and mediastinal contours are unremarkable. There is bilateral atelectasis or small infiltrates seen at both lung bases and left perihilar region. There is no pleural effusion or pneumothorax. Bony structures are unremarkable. XR/XR chest 1V IMPRESSION: Bibasilar atelectasis or small infiltrates new from 08/02/2021 exam.
[2021-08-10 09:35] VITALS: BP 121/71; PULSE 100; RESP 18; TEMP 36.8; O2SAT 94; BMI 32.5
--- NOTE | 2021-08-10 11:11 | ED.GENADULT ---
HPI - General Adult General Chief complaint: Upper Respiratory Symptoms Stated complaint: flu like symptoms Time Seen by Provider: 08/10/21 10:50 Source: patient Mode of arrival: ambulatory Limitations: no limitations History of Present Illness HPI narrative: Patient comes emergency room complaining of nausea, cough. Patient states that she has not been able to eat for the last 4 days due to nausea, yesterday had 1 episode of vomiting, no diarrhea. Patient states that she has coughing fits, complaining of diffuse body aches. Of note, patient tested positive for COVID-19 on August 02. Related Data Previous Rx's Medication Instructions Recorded amoxicillin 875 mg-potassium 1 tab PO BID 10 Days #20 tab 02/23/21 clavulanate 125 mg tablet (Augmentin) dexamethasone 4 mg tablet 10 mg PO DAILY 1 Days #3 tab 02/23/21 (Decadron) hyoscyamine sulfate 0.125 mg tablet 0.125 mg PO QID PRN #7 tab 05/20/21 azithromycin 250 mg tablet 250 mg PO DAILY 4 Days #4 tab 08/10/21 ondansetron HCl 4 mg tablet 4 mg PO Q6H PRN #14 tab 08/10/21 (Zofran) Allergies Allergy/AdvReac Type Severity Reaction Status Date / Time No Known Allergies Allergy Verified 08/10/21 09:35 Review of Systems Review of Systems: Constitutional : No Weight loss, No Fever, No Chills, No Night Sweats, complaining of fatigue and generalized malaise ENT/Mouth : No Hearing loss, No Ear Pain, No Nasal Congestion, No Sinus Pain, No Hoarseness, No sore throat, No Rhinorrhea, No Swallowing Difficulty Eyes: No Eye Pain, No Swelling, No Redness, No Foreign Body, No Discharge, No Vision Changes Cardiovascular : No Chest Pain, No SOB, No Dyspnea on Exertion, No Orthopnea, No Edema, No Palpitations Respiratory : Complaining of coughing fits that cause chest pain then self resolves, No Sputum, No Wheezing, No Smoke Exposure, No Dyspnea Gastrointestinal : Complaining of nausea and vomiting, No Diarrhea, No Constipation, No abdominal Pain, No Hematochezia, No Melena Genitourinary : no irregular bleeding, No Dysuria, No Urinary Frequency, No Hematuria, No Urinary Incontinence, No Urgency, No Flank Pain, No Urinary Flow Changes, No Hesitancy Musculoskeletal : No joint pain, No Myalgias, No Joint Swelling Skin : No Skin Lesions, No rash Neuro : No Weakness, No Numbness, No Paresthesias, No Loss of Consciousness, No Dizziness, No Headache Psych : No Anxiety/Panic, No Depression, No SI/HI/AH/VH, No Social Issues, Heme/Lymph: No Bruising, No Bleeding,No Lymphadenopathy Endocrine : No Polyuria, No Polydipsia, No Temperature Intolerance [facility] Past Medical History Medical History (Updated 08/10/21 @ 12:26 by Marisol Byrd MD) COVID-19 Social History Social History Alcohol intake: never Patient Tobacco Use Status: Never used Tobacco Advance Directives: No Patient : No Physical Exam Vital Signs: Vital Signs: Last Vital Signs Temp 98.2 F 08/10/21 09:35 Pulse 100 08/10/21 09:35 Resp 18 08/10/21 09:35 BP 121/71 08/10/21 09:35 Pulse Ox 94 08/10/21 09:35 Body Mass Index 32.5 Const: Other: Appearance: Alert. Oriented X3. No acute distress. Well-appearing Eyes: Pupils equal, round and reactive to light. ENT: Pharynx normal. Neck: Normal inspection. Neck supple. No lymph nodes noted. No crepitus CVS: Normal heart rate and rhythm. Pulses normal. Normal S1 and S2 Respiratory: No respiratory distress. Breath sounds normal. No Wheezing. No rales Abdomen: Soft and nontender. No rigidity. No distention. good BS x4 Skin: Skin warm and dry. Normal skin color. Normal skin turgor. Extremities: No lower extremity edema. No Lacerations. No Rash Neuro: Oriented X 3. No motor deficit. No sensory deficit. Moving all extermities. No slurred speech. Course Course Course Narrative: Patient tested positive for COVID-19 on August 02. Patient has atelectasis versus new infiltrates. Oxygen saturation 94% on room air. No respiratory distress. Patient was given 1 dose of azithromycin. Patient states that because she has not been drinking fluids she feels dehydrated, requesting 1 L of normal saline, 1 dose of Zofran given as well. Patient was walking the emergency room in the [facility] area, patient's oxygen saturation remained at 97%. Discharge Plan Discharge Clinical Impression: Pleurisy, Nausea, COVID-19 Patient Disposition: Home, Self-Care Instructions: Pleurisy (ED), Acute Nausea and Vomiting (ED) Additional Instructions: Please follow-up with your primary care physician tomorrow. If you have any worsening or new symptoms, please return to the emergency room or call 911 Prescriptions: New ondansetron HCl [Zofran] 4 mg tablet 4 mg PO Q6H PRN (Reason: nausea and vomiting) Qty: 14 RF: 0 azithromycin 250 mg tablet 250 mg PO DAILY 4 Days Qty: 4 RF: 0 No Action hyoscyamine sulfate 0.125 mg tablet 0.125 mg PO QID PRN (Reason: dyspepsia) Qty: 7 RF: 0 amoxicillin-pot clavulanate [Augmentin] 875-125 mg tablet 1 tab PO BID 10 Days Qty: 20 RF: 0 dexamethasone [Decadron] 4 mg tablet 10 mg PO DAILY 1 Days Qty: 3 RF: 0
[2021-08-10] MEDS: 0.9 % Sodium Chloride 1,000 ML 999 ML IVCONT (11:14)
[2021-08-10] MEDS: Azithromycin 500 MG TABLET PO (11:26)
[2021-08-10] MEDS: ondansetron HCL 4 MG/2 ML VIAL IVPUSH (11:26)
[2021-08-10 12:44] VITALS: BP 103/68; PULSE 92; RESP 16; O2SAT 98
--- NOTE | 2021-08-10 12:45 | PC.NURSE ---
pt medically cleared for discharge, pt given discharge summary. no c/o sob/dizziness/headache/nausea. vss.
[2021-08-10 13:12] VITALS: BP 123/75; PULSE 74; RESP 18; TEMP 37.1; O2SAT 99
== END 2021-08-10 14:00 | disposition home or self-care (01) ==
PROVIDERS: Emergency Provider Emergency Medicine
DX: U07.1 COVID-19 (principal); R05.9 Cough, unspecified; M79.10 Myalgia, unspecified site; R09.1 Pleurisy; Z79.899 Other long term (current) drug therapy
CPT/HCPCS: 71045; 96361; 96374; 99282; 99284; J2405

== ENCOUNTER 2021-08-16 20:02 | Emergency (ER) | payer OTHER, SELFPAY ==
--- NOTE | ~2021-08-16 | CT_ITS ---
EXAMINATION: CT ANGIOGRAM OF THE CHEST WITH AND WITHOUT CONTRAST (CT PULMONARY ANGIOGRAM FOR PE) CLINICAL INFORMATION: Reason for Exam covid with worsening of symptoms COMPARISON: None TECHNIQUE: Prior to contrast administration, noncontrast localization images were obtained. Subsequently, multidetector volumetric imaging was performed from the thoracic inlet to below the diaphragms following the administration of 65 mL Omnipaque 350 intravenous contrast. No contrast reaction reported Sagittal, coronal, and MIP oblique sagittal reformatted images were obtained on the CT workstation, uploaded to PACS, and reviewed. This CT examination was performed using dose optimization techniques as appropriate, variously including the following: *Automated exposure control *Adjustment of mA and/or kV according to patient size (this includes techniques or standardized protocols for targeted exams where dose is matched to indication/reason for exam; i.e. extremities or head) *Use of iterative reconstruction technique Total exam dose-length product 308 mGy-cm FINDINGS: QUALITY OF STUDY/CONTRAST BOLUS: Satisfactory. PULMONARY ARTERIES: No central or segmental pulmonary emboli. THORACIC AORTA: No aneurysm or dissection. LUNG: There are bilateral patchy consolidative airspace opacities showing a slight lower lobe predominance without significant central versus peripheral predilection. PLEURA: No pleural effusion or pneumothorax. MEDIASTINUM: Normal heart size. No pericardial effusion. No hilar or mediastinal lymphadenopathy. No evidence of septal bowing or right heart strain. CHEST WALL/AXILLA: No axillary or internal mammary lymphadenopathy. OSSEOUS STRUCTURES: No acute or suspicious osseous abnormality. UPPER ABDOMEN: Unremarkable. No reflux of contrast into the hepatic veins to suggest elevated right heart pressures. CT/CT angio chest PE protocol IMPRESSION: No pulmonary embolism. Multifocal bilateral patchy and consolidative airspace opacities compatible with multifocal atypical pneumonia. VTE: negative
[2021-08-16 20:23] VITALS: BP 115/64; PULSE 87; RESP 18; O2SAT 96; BMI 32.5
--- NOTE | 2021-08-16 22:33 | ED_ITS ---
HPI - General Adult General Chief complaint: General Medical Stated complaint: Rib pain/Coughing up blood Time Seen by Provider: 08/16/21 22:33 Source: patient Mode of arrival: ambulatory Limitations: no limitations History of Present Illness HPI narrative: Patient with history of COVID pneumonia diagnosed on 08/02 was getting better last night around 04:00 o'clock she woke up after having cough pain in the left lower part of the lung which increases on palpation and deep inspiration no fever no chills saturating 96% at room air patient was not treated with steroids last time when she came on 08/10 was given Zithromax and Zofran for nausea Related Data Previous Rx's Medication Instructions Recorded amoxicillin 875 mg-potassium 1 tab PO BID 10 Days #20 tab 02/23/21 clavulanate 125 mg tablet (Augmentin) dexamethasone 4 mg tablet 10 mg PO DAILY 1 Days #3 tab 02/23/21 (Decadron) hyoscyamine sulfate 0.125 mg tablet 0.125 mg PO QID PRN #7 tab 05/20/21 azithromycin 250 mg tablet 250 mg PO DAILY 4 Days #4 tab 08/10/21 ondansetron HCl 4 mg tablet 4 mg PO Q6H PRN #14 tab 08/10/21 (Zofran) albuterol sulfate 90 mcg/actuation 2 puff INHALATION Q4-6H PRN #8.5 g 08/17/21 aerosol inhaler (ProAir HFA) cefuroxime axetil 500 mg tablet 500 mg PO BID #20 tab 08/17/21 codeine 10 mg-guaifenesin 100 mg/5 10 ml PO Q4-6H PRN #237 ml 08/17/21 mL oral liquid dexamethasone 6 mg tablet 6 mg PO DAILY #10 tab 08/17/21 (Decadron) doxycycline hyclate 100 mg tablet 100 mg PO BID #20 tab 08/17/21 Allergies Allergy/AdvReac Type Severity Reaction Status Date / Time No Known Allergies Allergy Verified 08/10/21 09:35 Review of Systems Review of Systems: Yes all other systems are reviewed and are negative [facility] Past Medical History Medical History COVID-19 Social History Social History Alcohol intake: never Patient Tobacco Use Status: Never used Tobacco Advance Directives: No Patient : No Physical Exam Vital Signs: Vital Signs: Last Vital Signs Pulse 72 08/17/21 01:11 Resp 16 08/17/21 01:11 BP 108/47 L 08/17/21 01:11 Pulse Ox 97 08/17/21 01:11 Body Mass Index 32.5 Appearance: Alert. Oriented X3. No acute distress. Eyes: No pallor/ icterus ENT: Pharynx normal. Oral Mucosa moist Neck: Normal inspection. Neck supple. CVS: Normal heart rate and rhythm. Pulses normal. Respiratory: No respiratory distress. Equal air entry bilateral, no wheezing/rales/rhonchi tender to touch left lower ribs posteriorly no crepitation Abdomen: Soft and nontender. Bowel sounds are present, no mass palpable, no CVA tenderness Skin: Skin warm and dry. Normal skin color. Normal skin turgor. Extremities: No lower extremity edema. No calf tenderness Neuro: Oriented X 3. Medical Decision Making MDM Narrative Medical decision making narrative: Patient COVID 19 positive 14 days since onset of symptoms is still positive and symptomatic CT chest negative for PE shows worsening of infiltrate bilateral her leukocytosis will start her on Decadron and antibiotics as prophylactic for inflammatory response Lab Data Lab results reviewed: Yes I reviewed the patient's lab results. Result diagrams: 08/16/21 23:07 08/16/21 23:07 Labs: Lab Results 08/16/21 08/16/21 08/17/21 Range/Units 23:07 23:07 01:10 WBC 18.1 H (4.8-10.8) X10*3/uL RBC 4.63 (4.20-5.50) X10*6/uL Hgb 13.5 (12.0-16.0) g/dl Hct 39.7 (37-47) % MCV 85.7 (80-98) fL MCH 29.2 (27.0-33.0) pg MCHC 34.0 (31.0-35.0) g/dl RDW 13.0 (11.0-16.0) % Plt Count 404 H D (160-400) X10*3/uL MPV 8.9 L (9.4-12.3) fL Immature Gran % (Auto) 0.6 H (0.0-0.4) % Neut % (Auto) 76.2 H (45-73) % Lymph % (Auto) 14.2 L (20-40) % [place] % (Auto) 7.5 (2-11) % Eos % (Auto) 1.4 (0-4) % Baso % (Auto) 0.1 (0-2) % Lymph # (Auto) 2.6 (1.2-4.9) X10*3/uL [place] # (Auto) 1.4 H (0.1-1.2) X10*3/uL Eos # (Auto) 0.3 (0.0-0.4) X10*3/uL Baso # (Auto) 0.0 (0.0-0.2) X10*3/uL Abs Immat Gran (auto) 0.10 H (0.00-0.03) X10*3/uL Absolute Neuts (auto) 13.8 H (2.0-8.3) X10*3/uL Absolute Nucleated RBC 0.000 (0.0-0.012) X10*3/uL Nucleated RBC % (auto) 0.0 (0.0-0.2) /100WBC Sodium 141 (135-145) mmol/L Potassium 3.7 (3.3-5.1) mmol/L Chloride 106 (96-108) mmol/L Carbon Dioxide 26 (22-29) mmol/L Anion Gap 13 (12-20) BUN 8 L (9-16) mg/dL Creatinine 0.75 (0.5-1.4) mg/dL Estim Creat Clear Calc 121.8 Estimated GFR > 60 Random Glucose 81 (60-115) mg/dL Calcium 9.7 (8.4-10.2) mg/dL COVID-19 (LOU) Positive A (Negative) COVID-19 Clin Com See Note Discharge Plan Discharge Clinical Impression: COVID-19 Bilateral pneumonia Qualifiers: Pneumonia type: due to unspecified organism Lung location: unspecified part of lung Qualified Code(s): J18.9 - Pneumonia, unspecified organism Patient Disposition: Home, Self-Care Instructions: Bacterial Pneumonia (ED), COVID-19 (Coronavirus Disease 2019) (ED) Additional Instructions: Take antibiotics as prescribed Keep isolated untill you get asymptomatic Prescriptions: New dexamethasone [Decadron] 6 mg tablet 6 mg PO DAILY Qty: 10 RF: 0 codeine-guaifenesin 10-100 mg/5 mL liquid 10 ml PO Q4-6H PRN (Reason: cough) Qty: 237 RF: 0 cefuroxime axetil 500 mg tablet 500 mg PO BID Qty: 20 RF: 0 albuterol sulfate [ProAir HFA] 90 mcg/actuation HFA aerosol inhaler 2 puff inhalation Q4-6H PRN (Reason: Wheezing) Qty: 8.5 RF: 0 doxycycline hyclate 100 mg tablet 100 mg PO BID Qty: 20 RF: 0 No Action hyoscyamine sulfate 0.125 mg tablet 0.125 mg PO QID PRN (Reason: dyspepsia) Qty: 7 RF: 0 ondansetron HCl [Zofran] 4 mg tablet 4 mg PO Q6H PRN (Reason: nausea and vomiting) Qty: 14 RF: 0 azithromycin 250 mg tablet 250 mg PO DAILY 4 Days Qty: 4 RF: 0 amoxicillin-pot clavulanate [Augmentin] 875-125 mg tablet 1 tab PO BID 10 Days Qty: 20 RF: 0 dexamethasone [Decadron] 4 mg tablet 10 mg PO DAILY 1 Days Qty: 3 RF: 0
[2021-08-16] MEDS: Ketorolac Tromethamine 15 MG/ML VIAL 30 MG IVPUSH (23:12)
[2021-08-16] MEDS: guaiFEN/Codeine SF 200/20/10ML 10 ML LIQUID PO (23:12)
[2021-08-16] MEDS: 0.9 % Sodium Chloride 1,000 ML 999 ML IVCONT (23:12)
[2021-08-16 23:19] LABS: Basophils Percent Auto 0.1 % (0-2); Eosinophils Absolute Auto 0.3 X10*3/uL (0.0-0.4); Eosinophils Percent Auto 1.4 % (0-4); Hematocrit 39.7 % (37-47); Hemoglobin 13.5 g/dl (12.0-16.0); Imm Gran Pct Auto 0.6 % (0.0-0.4); Lymphocytes Absolute Auto 2.6 X10*3/uL (1.2-4.9); Lymphocytes Percent Auto 14.2 % (20-40); MANUAL DIFF FLAG NO; Mean Corpuscular Hemoglobin 29.2 pg (27.0-33.0); Mean Corpuscular Volume 85.7 fL (80-98); Mean Platelet Volume 8.9 fL (9.4-12.3); Monocytes Absolute Auto 1.4 X10*3/uL (0.1-1.2); Monocytes Percent Auto 7.5 % (2-11); Neutrophils Absolute Auto 13.8 X10*3/uL (2.0-8.3); Neutrophils Percent Auto 76.2 % (45-73); Platelet Count 404 X10*3/uL (160-400); Red Blood Count 4.63 X10*6/uL (4.20-5.50); White Blood Count 18.1 X10*3/uL (4.8-10.8)
[2021-08-16 23:23] VITALS: BP 110/58; PULSE 81; RESP 18; O2SAT 97
[2021-08-16 23:39] LABS: Anion Gap 13 (12-20); Blood Urea Nitrogen 8 mg/dL (9-16); Calcium 9.7 mg/dL (8.4-10.2); Carbon Dioxide 26 mmol/L (22-29); Chloride 106 mmol/L (96-108); Creatinine Clr Calc Pharmacy 121.8; Estimated Glomerular Filt Rate > 60; Glucose Random 81 mg/dL (60-115); Potassium 3.7 mmol/L (3.3-5.1); Sodium 141 mmol/L (135-145)
[2021-08-17] MEDS: iohexoL 350 MG/ML 100 ML INFUS..BTL 65 ML IV (00:39)
[2021-08-17 01:11] VITALS: BP 108/47; PULSE 72; RESP 16; O2SAT 97
[2021-08-17 01:33] LABS: IDNOW Serial# 9DD0AD1C
[2021-08-17 01:35] LABS: COVID-19 Test Positive (Negative)
[2021-08-17] MEDS: dexAMETHasone 2 MG TABLET 10 MG PO (01:40)
[2021-08-17] MEDS: cefTRIAXone sodium 1 GM in 0.9 % Sodium Chloride 50 ML IV (01:41)
== END 2021-08-17 02:56 | disposition home or self-care (01) ==
PROVIDERS: Emergency Provider Internal Medicine
DX: U07.1 COVID-19 (principal); J12.82 Pneumonia due to coronavirus disease 2019
CPT/HCPCS: 36415; 71275; 80048; 85025; 87635; 96361; 96365; 96375; 99284; J0696; J1885; J8540; Q9967

== ENCOUNTER 2021-12-14 08:25 | Outpatient (REF) | payer OTHER, SELFPAY ==
--- NOTE | ~2021-12-14 | XR_ITS ---
EXAMINATION: XR CHEST CLINICAL INFORMATION: Covid infection COMPARISON: Previous chest x-ray August 2021 TECHNIQUE: 2 views of the chest were obtained. FINDINGS: The cardiac and mediastinal contours are normal. The lungs are clear. The previously identified bilateral infiltrates have resolved. There is no pleural effusion or pneumothorax. Bony structures are unremarkable. XR/XR chest 2V IMPRESSION: Unremarkable examination.
[2021-12-14 11:32] LABS: MANUAL DIFF FLAG NO
[2021-12-14 11:39] LABS: Basophils Percent Auto 0.3 % (0-2); Eosinophils Absolute Auto 0.2 X10*3/uL (0.0-0.4); Hematocrit 41.5 % (37.0-47.0); Hemoglobin 13.6 g/dl (12.0-16.0); Imm Gran Abs Auto 0.02 X10*3/uL (0.00-0.03); Imm Gran Pct Auto 0.3 % (0.0-0.4); Lymphocytes Absolute Auto 2.4 X10*3/uL (1.2-4.9); Mean Corpuscular HGB Conc 32.8 g/dl (31.0-35.0); Mean Corpuscular Hemoglobin 28.7 pg (27.0-33.0); Mean Corpuscular Volume 87.6 fL (80.0-98.0); Mean Platelet Volume 9.7 fL (9.4-12.3); Monocytes Absolute Auto 0.5 X10*3/uL (0.1-1.2); Monocytes Percent Auto 5.9 % (2-11); Neutrophils Absolute Auto 4.5 x10*3/uL (2.0-8.3); Neutrophils Percent Auto 59.5 % (45-73); Platelet Count 340 X10*3/uL (160-400); Red Blood Count 4.74 X10*6/uL (4.20-5.50); Red Cell Distribution Width 13.2 % (11.0-16.0); White Blood Count 7.6 X10*3/uL (4.8-10.8)
[2021-12-14 11:57] LABS: Alanine Aminotransferase 14 U/L (0-31); Albumin Level 4.3 g/dL (3.5-5.0); Alkaline Phosphatase 77 U/L (39-117); Anion Gap 12 (12-20); Aspartate Amino Transferase 14 U/L (5-31); Bilirubin Total 0.3 mg/dL (0.0-1.0); Blood Urea Nitrogen 11 mg/dL (9-16); Calcium 9.9 mg/dL (8.4-10.2); Carbon Dioxide 24 mmol/L (22-29); Chloride 108 mmol/L (96-108); Cholesterol 166 mg/dL; Estimated Glomerular Filt Rate > 60; Glucose Fasting 102 mg/dL (60-99); HDL Cholesterol 46 mg/dL; LDL Cholesterol Calculated 107 mg/dl; Potassium 4.7 mmol/L (3.3-5.1); Sodium 139 mmol/L (135-145); Total Protein 7.3 g/dL (6.5-8.0); Triglycerides 68 mg/dL
[2021-12-14 12:25] LABS: TSH reflex Free T4 0.76 uIU/mL (0.32-4.0)
[2021-12-14 14:12] LABS: Appearance Urine HAZY; Color Urine YELLOW; Glucose Urine UA NEG (NEG); Leukocyte Esterase Urine NEG (NEG); Nitrite Urine NEG (NEG); PH 6.5 (5.0-8.0); UACC Culture Trigger NO; Urine Blood 2+ (NEG); Urine Ketones NEG (NEG); Urine Protein NEG (NEG-TRACE)
[2021-12-14 14:49] LABS: Amorphous Sediment Urine 2+ /LPF; Bacteria Urine TRACE /LPF; Squamous Epithelial Cell Urine 1+ /LPF; WBC Urine 0-2 /HPF (0-4)
== END 2021-12-14 08:26 | disposition home or self-care (01) ==
LOC: HO.HMGCLDS 08:25
PROVIDERS: Visit Provider Nurse Practitioner Family
DX: Z00.00 Encounter for general adult medical examination without abnormal findings (principal); U07.1 COVID-19
CPT/HCPCS: 36415; 71046; 80053; 80061; 81001; 84443; 85025

== ENCOUNTER 2022-01-18 08:30 | Outpatient (REF) | payer OTHER, SELFPAY ==
--- NOTE | ~2022-01-18 | US_ITS ---
EXAMINATION: US PELVIS CLINICAL INFORMATION: Pelvic and perineal pain. COMPARISON: None TECHNIQUE: Ultrasound of the pelvis is performed using both transabdominal and transvaginal transducers along with Doppler. Transvaginal imaging is performed due to inadequate visualization transabdominally. FINDINGS: Uterus: The uterus is anteverted and measures 6.75 x 3.67 x 4.55 cm. The double wall endometrial thickness is 0.34 cm. The uterus is smooth in contour and has normal myometrial echogenicity. No visible fibroid. Adnexa: Both ovaries are visualized. There is normal color flow to the adnexa. There is no ovarian torsion. There is no pelvic ascites or fluid collection. Right ovary measures 3.05 x 2.27 x 2.18 cm and volume 7.90 mL. There is a complex anechoic cyst with septations measuring 2.4 x 1.6 x 1.6 cm. There is a second complex cyst measuring 1.5 x 1.2 x 1.1 cm. There is minimal free fluid seen adjacent to the right ovary. Left ovary measures 2.46 x 1.79 x 2.08 cm and volume 4.80 mL. There is a small amount of free fluid in the cul-de-sac. US/US pelvic and transvaginal IMPRESSION: Two complex right ovarian cysts measuring 2.4 cm and 1.5 cm respectively. There is minimal free fluid surrounding the right ovary. The left ovary and the uterus appear unremarkable. Small amount of free fluid in the cul-de-sac.
== END 2022-01-18 08:31 | disposition home or self-care (01) ==
LOC: HO.HMGCX 08:30
PROVIDERS: PCP Nurse Practitioner Family; Visit Provider Nurse Practitioner Family
DX: R10.2 Pelvic and perineal pain (principal); R10.33 Periumbilical pain
CPT/HCPCS: 76830; 76856

== ENCOUNTER 2022-01-31 13:30 | Outpatient (REF) | payer OTHER, SELFPAY ==
[2022-01-31 16:30] LABS: Appearance Urine CLEAR; Color Urine STRAW; Glucose Urine UA NEG (NEG); Leukocyte Esterase Urine NEG (NEG); Nitrite Urine NEG (NEG); PH 5.5 (5.0-8.0); Specific Gravity - Urine 1.015 (1.005-1.025); Urine Blood NEG (NEG); Urine Ketones NEG (NEG); Urine Protein NEG (NEG-TRACE)
[2022-01-31 17:01] LABS: Syphilis Screen Nonreactive (Nonreactive)
[2022-01-31 19:06] LABS: CT PCR NOT DETECTED (Not Detect.); NG PCR NOT DETECTED (Not Detect.)
[2022-02-01 04:12] LABS: HIV AB/AG Nonreactive (Nonreactive); HIV Num 1 0.08 S/CO (0.00-0.99)
== END 2022-01-31 13:31 | disposition home or self-care (01) ==
LOC: HO.HMGCLDS 13:30
PROVIDERS: Visit Provider Nurse Practitioner Family
DX: Z00.00 Encounter for general adult medical examination without abnormal findings (principal); Z11.3 Encounter for screening for infections with a predominantly sexual mode of transmission; Z11.4 Encounter for screening for human immunodeficiency virus [HIV]
CPT/HCPCS: 81003; 86780; 87389; 87491; 87591

== ENCOUNTER 2022-02-02 18:23 | Outpatient (REF) | payer OTHER, SELFPAY ==
[2022-02-03 13:35] LABS: BV Int Neg Control Negative (Negative); BV Int Pos Control Positive (Positive)
== END 2022-02-02 18:24 | disposition home or self-care (01) ==
LOC: HO.LNP 18:23
PROVIDERS: Visit Provider Physician Assistant
DX: Z11.3 Encounter for screening for infections with a predominantly sexual mode of transmission (principal)
CPT/HCPCS: 87480; 87510; 87660

== ENCOUNTER 2022-02-23 13:02 | Outpatient (REF) | payer OTHER, SELFPAY ==
[2022-02-23 15:08] LABS: Appearance Urine CLEAR; Color Urine YELLOW; Glucose Urine UA NEG (NEG); Leukocyte Esterase Urine NEG (NEG); Nitrite Urine NEG (NEG); PH 6.5 (5.0-8.0); Specific Gravity - Urine <= 1.005 (1.005-1.025); Urine Blood NEG (NEG); Urine Ketones NEG (NEG); Urine Protein NEG (NEG-TRACE)
[2022-02-24 01:53] LABS: CT PCR NOT DETECTED (Not Detect.); NG PCR NOT DETECTED (Not Detect.)
[2022-02-24 11:09] LABS: BV Int Neg Control Negative (Negative); BV Int Pos Control Positive (Positive)
[2022-02-25 07:01] LABS: CA 125 New Method 15 U/mL (<35); CA-125 15 U/mL (<35)
== END 2022-02-23 13:03 | disposition home or self-care (01) ==
LOC: HO.LAB 13:02
PROVIDERS: Physician Assistant; PCP Nurse Practitioner Family; Visit Provider Obstetrics & Gynecology
DX: Z11.3 Encounter for screening for infections with a predominantly sexual mode of transmission (principal); N83.299 Other ovarian cyst, unspecified side; N89.8 Other specified noninflammatory disorders of vagina
CPT/HCPCS: 36415; 81003; 81025; 86304; 87480; 87491; 87510; 87591; 87660

== ENCOUNTER 2022-03-14 10:52 | Outpatient (REF) | payer OTHER, SELFPAY ==
[2022-03-14 14:03] LABS: Appearance Urine HAZY; Color Urine YELLOW; Glucose Urine UA NEG (NEG); Leukocyte Esterase Urine NEG (NEG); Nitrite Urine NEG (NEG); Specific Gravity - Urine >= 1.030 (1.005-1.025); Urine Blood NEG (NEG); Urine Ketones NEG (NEG); Urine Protein NEG (NEG-TRACE)
[2022-03-14 14:38] LABS: Bacteria Urine 1+ /LPF; RBC Urine 0-2 /HPF (0); Squamous Epithelial Cell Urine 1+ /LPF; WBC Urine 0-2 /HPF (0-4)
[2022-03-14 14:39] LABS: Mucus Urine TRACE /LPF
== END 2022-03-14 10:53 | disposition home or self-care (01) ==
LOC: HO.HMGCLDS 10:52
PROVIDERS: PCP Nurse Practitioner Family; Visit Provider Nurse Practitioner Family
DX: R30.0 Dysuria (principal)
CPT/HCPCS: 81001; 87086; 87147

== ENCOUNTER 2022-03-17 10:01 | Outpatient (REF) | payer OTHER, SELFPAY ==
[2022-03-17 11:36] LABS: Appearance Urine CLEAR; Glucose Urine UA NEG (NEG); Leukocyte Esterase Urine NEG (NEG); Nitrite Urine NEG (NEG); Specific Gravity - Urine <= 1.005 (1.005-1.025); Urine Blood NEG (NEG); Urine Ketones NEG (NEG); Urine Protein NEG (NEG-TRACE)
[2022-03-17 11:40] LABS: Urine Cytology See Pathology rpt
[2022-03-17 11:41] LABS: Color Urine COLORLESS
[2022-03-17 11:44] LABS: MANUAL DIFF FLAG NO
[2022-03-17 11:51] LABS: Basophils Percent Auto 0.4 % (0-2); Eosinophils Absolute Auto 0.2 X10*3/uL (0.0-0.4); Eosinophils Percent Auto 2.2 % (0-4); Hematocrit 40.5 % (37.0-47.0); Hemoglobin 13.5 g/dl (12.0-16.0); Imm Gran Abs Auto 0.03 X10*3/uL (0.00-0.03); Imm Gran Pct Auto 0.4 % (0.0-0.4); Lymphocytes Absolute Auto 2.5 X10*3/uL (1.2-4.9); Lymphocytes Percent Auto 29.2 % (20-40); Mean Corpuscular HGB Conc 33.3 g/dl (31.0-35.0); Mean Corpuscular Hemoglobin 29.2 pg (27.0-33.0); Mean Corpuscular Volume 87.5 fL (80.0-98.0); Mean Platelet Volume 9.7 fL (9.4-12.3); Monocytes Absolute Auto 0.6 X10*3/uL (0.1-1.2); Monocytes Percent Auto 6.6 % (2-11); Neutrophils Absolute Auto 5.2 x10*3/uL (2.0-8.3); Neutrophils Percent Auto 61.2 % (45-73); Platelet Count 329 X10*3/uL (160-400); Red Blood Count 4.63 X10*6/uL (4.20-5.50); Red Cell Distribution Width 13.9 % (11.0-16.0); White Blood Count 8.5 X10*3/uL (4.8-10.8)
[2022-03-17 12:23] LABS: TSH reflex Free T4 0.71 uIU/mL (0.32-4.0)
[2022-03-17 12:25] LABS: Alanine Aminotransferase 19 U/L (0-31); Albumin Level 4.4 g/dL (3.5-5.0); Alkaline Phosphatase 74 U/L (39-117); Anion Gap 12 (12-20); Aspartate Amino Transferase 18 U/L (5-31); Bilirubin Total 0.4 mg/dL (0.0-1.0); Blood Urea Nitrogen 8 mg/dL (9-16); Calcium 10.1 mg/dL (8.4-10.2); Carbon Dioxide 22 mmol/L (22-29); Chloride 106 mmol/L (96-108); Estimated Glomerular Filt Rate > 60; Glucose Random 94 mg/dL (60-115); Potassium 4.1 mmol/L (3.3-5.1); Sodium 136 mmol/L (135-145); Total Protein 7.3 g/dL (6.5-8.0)
[2022-03-17 13:22] LABS: Squamous Epithelial Cell Urine 2+ /LPF
[2022-03-17 13:24] LABS: RBC Urine 0 /HPF (0); WBC Urine 0 /HPF (0-4)
[2022-03-18 04:24] LABS: HIV AB/AG Nonreactive (Nonreactive); HIV Num 1 0.06 S/CO (0.00-0.99)
[2022-03-18 08:31] LABS: Syphilis Screen Nonreactive (Nonreactive)
== END 2022-03-17 10:02 | disposition home or self-care (01) ==
LOC: HO.HMGCLDS 10:01
PROVIDERS: PCP Nurse Practitioner Family; Visit Provider Nurse Practitioner Family
DX: R10.2 Pelvic and perineal pain (principal); Z11.4 Encounter for screening for human immunodeficiency virus [HIV]; Z11.3 Encounter for screening for infections with a predominantly sexual mode of transmission; Z13.29 Encounter for screening for other suspected endocrine disorder
CPT/HCPCS: 36415; 80053; 81001; 84443; 85025; 86780; 87086; 87389; 88112

== ENCOUNTER 2022-03-21 13:30 | Outpatient (REF) | payer OTHER, SELFPAY ==
[2022-03-22 06:40] LABS: CT PCR NOT DETECTED (Not Detect.); NG PCR NOT DETECTED (Not Detect.)
== END 2022-03-21 13:31 | disposition home or self-care (01) ==
LOC: HO.HMGCLDS 13:30
PROVIDERS: Visit Provider Nurse Practitioner Family
DX: Z11.3 Encounter for screening for infections with a predominantly sexual mode of transmission (principal); R10.2 Pelvic and perineal pain
CPT/HCPCS: 87491; 87591

== ENCOUNTER 2022-04-06 08:34 | Outpatient (REF) | payer OTHER, SELFPAY ==
--- NOTE | ~2022-04-06 | US_ITS ---
EXAMINATION: US PELVIS CLINICAL INFORMATION: Follow-up complex ovarian cyst COMPARISON: CT scan from 05/20/2021 LMP 04/01/2022 TECHNIQUE: Ultrasound of the pelvis is performed using both transabdominal and transvaginal transducers along with Doppler. Transvaginal imaging is performed due to inadequate visualization transabdominally. FINDINGS: Uterus: The uterus is retroverted and measures 7.0 x 3.7 x 6.6 cm. The double wall endometrial thickness is 0.28 mm. The uterus is smooth in contour and has normal myometrial echogenicity. No visible fibroid. Adnexa: Both ovaries are visualized. There is normal color flow to the adnexa. There is no ovarian torsion. There is no pelvic ascites or fluid collection. Right ovary measures 3.7 x 1.8 x 2.4 cm. With a volume measured 8.5 mL Left ovary measures 3.8 x 1.4 x 1.8 cm. With a volume measured 5.0 mL US/US pelvic and transvaginal IMPRESSION: Normal study. No evidence of cysts
== END 2022-04-06 08:35 | disposition home or self-care (01) ==
LOC: HO.HMGCX 08:34
PROVIDERS: Visit Provider Obstetrics & Gynecology
DX: N83.299 Other ovarian cyst, unspecified side (principal)
CPT/HCPCS: 76830; 76856

== ENCOUNTER 2022-04-28 13:44 | Outpatient (REF) | payer OTHER, SELFPAY ==
[2022-04-28 16:47] LABS: Appearance Urine CLEAR; Color Urine YELLOW; Glucose Urine UA NEG (NEG); Leukocyte Esterase Urine NEG (NEG); Nitrite Urine NEG (NEG); PH 7.5 (5.0-8.0); Urine Blood NEG (NEG); Urine Ketones NEG (NEG); Urine Protein NEG (NEG-TRACE)
== END 2022-04-28 13:45 | disposition home or self-care (01) ==
LOC: HO.HMGCLDS 13:44
PROVIDERS: PCP Nurse Practitioner Family; Visit Provider Nurse Practitioner Family
DX: R30.0 Dysuria (principal)
CPT/HCPCS: 81003

== ENCOUNTER 2022-05-16 13:15 | Outpatient (REF) | payer OTHER, SELFPAY ==
[2022-05-16 14:52] LABS: Syphilis Screen Nonreactive (Nonreactive)
[2022-05-16 15:44] LABS: CT PCR NOT DETECTED (Not Detect.); NG PCR NOT DETECTED (Not Detect.)
[2022-05-17 08:00] LABS: HBsAGNum1 0.19 S/CO (0.00-0.99); HIV AB/AG Nonreactive (Nonreactive); HIV Num 1 0.09 S/CO (0.00-0.99); Hepatitis B Surface Antigen Negative (Negative); ~HepC Num1 0.05 S/CO (0.00-0.79); ~Hepatitis C Antibody Nonreactive (Nonreactive)
[2022-05-17 12:28] LABS: BV Int Neg Control Negative (Negative); BV Int Pos Control Positive (Positive)
== END 2022-05-16 13:16 | disposition home or self-care (01) ==
LOC: HO.LAB 13:15
PROVIDERS: PCP Nurse Practitioner Family; Visit Provider Obstetrics & Gynecology
DX: Z11.3 Encounter for screening for infections with a predominantly sexual mode of transmission (principal); Z11.4 Encounter for screening for human immunodeficiency virus [HIV]; N89.8 Other specified noninflammatory disorders of vagina
CPT/HCPCS: 36415; 86780; 86803; 87340; 87389; 87480; 87491; 87510; 87591; 87660

== ENCOUNTER 2022-08-17 14:24 | Outpatient (REF) | payer OTHER, SELFPAY ==
[2022-08-17 16:55] LABS: Appearance Urine Clear; Color Urine Yellow; Glucose Urine UA Negative (Negative); Leukocyte Esterase Urine Negative (Negative); Nitrite Urine Negative (Negative); PH 6.5 (5.0-9.0); Urine Blood Negative (Negative); Urine Ketones Negative (Negative); Urine Protein Negative (Neg-Trace)
[2022-08-17 17:01] LABS: Bacteria Urine None Seen (None Seen); Hyaline Casts Urine 0-2 /LPF (0-2); RBC Urine 0-2 /HPF (0-2); Squamous Epithelial Cell Urine 0-2 /HPF (0-2); WBC Urine 0-5 /HPF (0-5)
== END 2022-08-17 14:25 | disposition home or self-care (01) ==
LOC: HO.HMGCLDS 14:24
PROVIDERS: PCP Nurse Practitioner Family; Visit Provider Nurse Practitioner Family
DX: R10.2 Pelvic and perineal pain (principal)
CPT/HCPCS: 81001; 87086; 87147

== ENCOUNTER 2022-09-17 12:22 | Outpatient (REF) | payer OTHER, SELFPAY ==
--- NOTE | ~2022-09-17 | XR_ITS ---
EXAMINATION: XR CHEST CLINICAL INFORMATION: Fatigue COMPARISON: Chest radiograph December 2021, CT angiogram chest 08/17/2021 TECHNIQUE: 2 views of the chest were obtained. FINDINGS: No significant abnormality is noted involving the heart, lungs, mediastinum, bony thorax or soft tissues. XR/XR chest 2V IMPRESSION: Unremarkable examination.
[2022-09-17 15:43] LABS: MANUAL DIFF FLAG NO
[2022-09-17 15:47] LABS: Basophils Percent Auto 0.2 % (0-2); Eosinophils Absolute Auto 0.1 X10*3/uL (0.0-0.4); Eosinophils Percent Auto 1.1 % (0-4); Hematocrit 39.8 % (37.0-47.0); Hemoglobin 13.1 g/dl (12.0-16.0); Imm Gran Abs Auto 0.02 X10*3/uL (0.00-0.03); Imm Gran Pct Auto 0.2 % (0.0-0.4); Lymphocytes Absolute Auto 2.9 X10*3/uL (1.2-4.9); Lymphocytes Percent Auto 28.4 % (20-40); Mean Corpuscular HGB Conc 32.9 g/dl (31.0-35.0); Mean Corpuscular Hemoglobin 28.8 pg (27.0-33.0); Mean Corpuscular Volume 87.5 fL (80.0-98.0); Mean Platelet Volume 9.6 fL (9.4-12.3); Monocytes Absolute Auto 0.6 X10*3/uL (0.1-1.2); Monocytes Percent Auto 5.5 % (2-11); Neutrophils Absolute Auto 6.5 x10*3/uL (2.0-8.3); Neutrophils Percent Auto 64.6 % (45-73); Platelet Count 321 X10*3/uL (160-400); Red Blood Count 4.55 X10*6/uL (4.20-5.50); Red Cell Distribution Width 13.5 % (11.0-16.0); White Blood Count 10.1 X10*3/uL (4.8-10.8)
[2022-09-17 15:49] LABS: Appearance Urine Turbid; Color Urine Yellow; Glucose Urine UA Negative (Negative); Leukocyte Esterase Urine Negative (Negative); Nitrite Urine Negative (Negative); Specific Gravity - Urine 1.025 (1.005-1.025); Urine Blood Negative (Negative); Urine Ketones Negative (Negative); Urine Protein Negative (Neg-Trace)
[2022-09-17 16:15] LABS: Alanine Aminotransferase 20 U/L (0-31); Albumin Level 4.1 g/dL (3.5-5.0); Alkaline Phosphatase 79 U/L (39-117); Anion Gap 14 (12-20); Aspartate Amino Transferase 15 U/L (5-31); Bilirubin Total 0.6 mg/dL (0.0-1.0); Blood Urea Nitrogen 11 mg/dL (9-16); Calcium 9.2 mg/dL (8.4-10.2); Carbon Dioxide 21 mmol/L (22-29); Chloride 105 mmol/L (96-108); Estimated Glomerular Filt Rate > 60; Glucose Random 92 mg/dL (60-115); Iron 92 mcg/dL (30-160); Percent Iron Saturation 25 % (15-50); Potassium 4.2 mmol/L (3.3-5.1); Sodium 136 mmol/L (135-145); Total Iron Binding Capacity 369 mcg/dL (228-428); Total Protein 7.2 g/dL (6.5-8.0); Unsaturated Iron Binding 277 ug/dL
[2022-09-17 16:40] LABS: Ferritin 34 ng/mL (10-122)
[2022-09-17 17:20] LABS: Folate 12.6 ng/mL (> or = 4.0); Vitamin B12 238 pg/mL (200-900)
== END 2022-09-17 12:23 | disposition home or self-care (01) ==
LOC: HO.HMGCX 12:22
PROVIDERS: PCP Nurse Practitioner Family; Visit Provider Nurse Practitioner Family
DX: R53.83 Other fatigue (principal)
CPT/HCPCS: 36415; 71046; 80053; 81003; 82607; 82728; 82746; 83540; 84443; 85025

== ENCOUNTER 2022-10-07 08:03 | Outpatient (REF) | payer OTHER, SELFPAY ==
[2022-10-07 12:43] LABS: HIV AB/AG Nonreactive (Nonreactive); HIV Num 1 0.07 S/CO (0.00-0.99)
[2022-10-07 12:44] LABS: Syphilis Screen Nonreactive (Nonreactive)
[2022-10-07 16:31] LABS: Appearance Urine Clear; Color Urine Yellow; Glucose Urine UA Negative (Negative); Leukocyte Esterase Urine Negative (Negative); Nitrite Urine Negative (Negative); PH 6.5 (5.0-9.0); Urine Blood Negative (Negative); Urine Ketones Negative (Negative); Urine Protein Negative (Neg-Trace)
[2022-10-07 18:30] LABS: CT PCR NOT DETECTED (Not Detect.); NG PCR NOT DETECTED (Not Detect.)
== END 2022-10-07 08:04 | disposition home or self-care (01) ==
LOC: HO.HMGCLDS 08:03
PROVIDERS: PCP Nurse Practitioner Family; Visit Provider Nurse Practitioner Family
DX: Z11.3 Encounter for screening for infections with a predominantly sexual mode of transmission (principal)
CPT/HCPCS: 81003; 86780; 87389; 87491; 87591

== ENCOUNTER 2022-10-15 14:12 | Outpatient (REF) | payer OTHER, SELFPAY ==
[2022-10-17 09:36] LABS: BV Int Neg Control Negative (Negative); BV Int Pos Control Positive (Positive)
== END 2022-10-15 14:13 | disposition home or self-care (01) ==
LOC: HO.LNP 14:12
PROVIDERS: Visit Provider Nurse Practitioner Family
DX: N89.8 Other specified noninflammatory disorders of vagina (principal); Z11.3 Encounter for screening for infections with a predominantly sexual mode of transmission
CPT/HCPCS: 87480; 87510; 87660

== ENCOUNTER 2023-01-21 11:31 | Outpatient (REF) | payer OTHER, SELFPAY ==
[2023-01-21 14:08] LABS: MANUAL DIFF FLAG NO
[2023-01-21 14:09] LABS: Basophils Percent Auto 0.4 % (0-2); Eosinophils Absolute Auto 0.2 X10*3/uL (0.0-0.4); Eosinophils Percent Auto 2.5 % (0-4); Hematocrit 39.2 % (37.0-47.0); Hemoglobin 13.3 g/dl (12.0-16.0); Imm Gran Abs Auto 0.01 X10*3/uL (0.00-0.03); Imm Gran Pct Auto 0.1 % (0.0-0.4); Immature Retic Fraction 5.7 % (3.0-15.9); Lymphocytes Absolute Auto 2.3 X10*3/uL (1.2-4.9); Lymphocytes Percent Auto 34.1 % (20-40); Mean Corpuscular HGB Conc 33.9 g/dl (31.0-35.0); Mean Corpuscular Hemoglobin 29.3 pg (27.0-33.0); Mean Corpuscular Volume 86.3 fL (80.0-98.0); Mean Platelet Volume 9.9 fL (9.4-12.3); Monocytes Absolute Auto 0.5 X10*3/uL (0.1-1.2); Monocytes Percent Auto 6.8 % (2-11); Neutrophils Absolute Auto 3.8 x10*3/uL (2.0-8.3); Neutrophils Percent Auto 56.1 % (45-73); Platelet Count 294 X10*3/uL (160-400); Red Blood Count 4.54 X10*6/uL (4.20-5.50); Red Cell Distribution Width 13.5 % (11.0-16.0); Retic HGB Equivalent 35.7 pg (30.0-35.0); Reticulocyte Percent 1.2 % (0.5-1.8); Reticulocytes Absolute 0.055 X10*6/uL (0.026-0.095); White Blood Count 6.8 X10*3/uL (4.8-10.8)
[2023-01-21 14:10] LABS: Appearance Urine Cloudy; Color Urine Yellow; Glucose Urine UA Negative (Negative); Leukocyte Esterase Urine Negative (Negative); Nitrite Urine Negative (Negative); PH 6.5 (5.0-9.0); Specific Gravity - Urine 1.025 (1.005-1.025); UMIC TRIGGER UACC YES; Urine Blood Large (3+) (Negative); Urine Ketones Negative (Negative); Urine Protein Trace mg/dL (Neg-Trace)
[2023-01-21 14:15] LABS: Bacteria Urine Trace (None Seen); Hyaline Casts Urine 0-2 /LPF (0-2); RBC Urine >20 /HPF (0-2); WBC Urine 0-5 /HPF (0-5)
[2023-01-21 14:27] LABS: Alanine Aminotransferase 14 U/L (0-31); Albumin Level 4.1 g/dL (3.5-5.0); Alkaline Phosphatase 60 U/L (39-117); Anion Gap 16 (12-20); Aspartate Amino Transferase 15 U/L (5-31); Bilirubin Total 0.7 mg/dL (0.0-1.0); Blood Urea Nitrogen 12 mg/dL (9-16); Calcium 9.4 mg/dL (8.4-10.2); Carbon Dioxide 19 mmol/L (22-29); Chloride 108 mmol/L (96-108); Cholesterol 160 mg/dL; Estimated Glomerular Filt Rate > 60; Glucose Fasting 92 mg/dL (60-99); HDL Cholesterol 44 mg/dL; Iron 77 mcg/dL (30-160); LDL Cholesterol Calculated 105 mg/dl; Percent Iron Saturation 26 % (15-50); Potassium 4.6 mmol/L (3.3-5.1); Sodium 138 mmol/L (135-145); Total Iron Binding Capacity 296 mcg/dL (228-428); Total Protein 6.8 g/dL (6.5-8.0); Triglycerides 56 mg/dL; Unsaturated Iron Binding 219 ug/dL
[2023-01-21 14:57] LABS: Ferritin 37 ng/mL (10-122); Folate 14.1 ng/mL (> or = 4.0); TSH reflex Free T4 0.78 uIU/mL (0.32-4.0); Vitamin B12 366 pg/mL (200-900)
[2023-01-23 22:08] LABS: Lyme Abs Screen <0.90 index
== END 2023-01-21 11:32 | disposition home or self-care (01) ==
LOC: HO.HMGCLDS 11:31
PROVIDERS: PCP Nurse Practitioner Family; Visit Provider Nurse Practitioner Family
DX: Z00.00 Encounter for general adult medical examination without abnormal findings (principal); Z13.220 Encounter for screening for lipoid disorders; R53.83 Other fatigue
CPT/HCPCS: 36415; 80053; 80061; 81001; 82607; 82728; 82746; 83540; 84443; 85025; 85045; 86617; 86618

== ENCOUNTER 2023-03-02 13:46 | Outpatient (REF) | payer OTHER, SELFPAY ==
[2023-03-03 08:20] LABS: HBS Num1 0.14 mIU/mL (0-7.99); HIV AB/AG Nonreactive (Nonreactive); HIV Num 1 0.06 S/CO (0.00-0.99); ~Hepatitis B Surface Antibody NONREACTIVE (Nonreactive)
[2023-03-03 08:57] LABS: Syphilis Screen Nonreactive (Nonreactive)
[2023-03-03 22:13] LABS: Herpes Simplex Type 2 IgG <0.90 index; Rubella IgG Antibody 1.04 Index
[2023-03-03 23:19] LABS: Mumps Virus IgG Antibody <9.00 AU/mL; Rubeola IgG (Measles) <13.50 AU/mL
== END 2023-03-02 13:47 | disposition home or self-care (01) ==
LOC: HO.HMGCLDS 13:46
PROVIDERS: PCP Nurse Practitioner Family; Visit Provider Nurse Practitioner Family
DX: Z02.0 Encounter for examination for admission to educational institution (principal); Z11.4 Encounter for screening for human immunodeficiency virus [HIV]; Z20.2 Contact with and (suspected) exposure to infections with a predominantly sexual mode of transmission
CPT/HCPCS: 36415; 86695; 86696; 86706; 86735; 86762; 86765; 86780; 86787; 87389

== ENCOUNTER 2023-03-04 13:05 | Emergency (ER) | payer OTHER, SELFPAY ==
--- NOTE | ~2023-03-04 | US_ITS ---
EXAMINATION: US FIRST TRIMESTER CLINICAL INFORMATION: Bleeding, pain. LMP: 01/17/2023 Beta-hCG: Unknown COMPARISON: None available. TECHNIQUE: Transabdominal imaging was performed. FINDINGS: UTERUS AND INTRAUTERINE GESTATIONAL SAC: There is a single intrauterine gestational sac. The gestational sac is slightly irregular. CROWN-RUMP LENGTH (CRL) : 0.41 cm, estimated age 6 weeks and 1 days, estimated date of confinement is 10/24/2023 YOLK SAC: Not found HEART MOTION: 127 BPM. SUBCHORIONIC HEMORRHAGE: There is a questionable small subchorionic blood products. OVARIES: Right: Normal Left: Normal FREE FLUID: None OTHER FINDINGS: Incidental finding was made of possible bicornuate uterus. Trace amount of fluid in the left endometrial canal. US/US OB pelvic and transvaginal IMPRESSION: 1. Single live intrauterine . 2. Estimated age 6 weeks and 1 day. 3. Slight irregularity of the gestational sac along with possible subchorionic bleed. Attention to follow-up ultrasound in 7 days recommended. 4. There is a suspicion for possible bicornuate uterus. Evaluation is limited on this limited ultrasound, This could be assessed further with dedicated uterine ultrasound after the completion of and/or MRI if clinically indicated..
[2023-03-04 13:32] VITALS: BP 135/70; PULSE 72; RESP 18; TEMP 36.8; O2SAT 99; BMI 33.5
--- NOTE | 2023-03-04 13:33 | ED_ITS ---
HPI - Female Genitourinary General Chief complaint: Vaginal Bleeding <KAYLEE Sandoval - Last Filed: 03/04/23 13:35> Stated complaint: abd pain <KAYLEE Sandoval - Last Filed: 03/04/23 13:35> Time Seen by Provider: 03/04/23 14:41 <KAYLEE Sandoval - Last Filed: 03/04/23 13:35> Source: patient and family <Gareth Padilla MD - Last Filed: 03/04/23 16:24> Mode of arrival: ambulatory <Gareth Padilla MD - Last Filed: 03/04/23 16:24> Limitations: no limitations <Gareth Padilla MD - Last Filed: 03/04/23 16:24> History of Present Illness HPI Narrative: 28 y/o female currently 7 weeks by date who presents to the ER for evaluation of lower abdominal cramping and bleeding for the last 4 days, stated that the bleeding is diminishing only with wiping now. No history of STD, no history of ectopic. <Gareth Padilla MD - Last Filed: 03/04/23 16:24> Related Data Home medications: Home Medications Medication Instructions Recorded Confirmed clindamycin 1.2 % (1 % topical 03/17/22 01/19/23 base)-benzoyl peroxide 5 % topical gel tretinoin 0.025 % topical cream appl topical 03/17/22 01/19/23 Previous Rx's Medication Instructions Recorded valacyclovir 1 gram tablet 2,000 mg PO BID PRN for outbreaks 04/04/22 1 day #4 tabs tinidazole 500 mg tablet 1 g PO DAILY 5 days #10 tabs 10/19/22 amoxicillin 875 mg-potassium 1 tab PO Q12H 7 days #14 tabs 01/19/23 clavulanate 125 mg tablet cetirizine 10 mg tablet 10 mg PO DAILY PRN allergy 01/19/23 symptoms #30 tabs <KAYLEE Sandoval - Last Filed: 03/04/23 13:35> Allergies/Adverse reactions: Allergies Allergy/AdvReac Type Severity Reaction Status Date / Time No Known Allergies Allergy Verified 01/19/23 12:42 <KAYLEE Sandoval - Last Filed: 03/04/23 13:35> Review of Systems Review of Systems: All other systems are reviewed and are negative Constitutional: Reports as per HPI and Reports no additional constitutional complaints Eyes: Reports as per HPI and Reports no additional eye complaints Reports system reviewed and no additional complaints, except as documented Cardiovascular: Reports as per HPI and Reports no additional cardiovascular complaints Respiratory: Reports as per HPI and Reports no additional respiratory complaints Gastrointestinal: Reports as per HPI and Reports no additional gastrointestinal complaints Genitourinary: Reports no additional female genitourinary complaints Musculoskeletal: Reports no additional musculoskeletal complaints Skin/Breast: Reports system reviewed and no additional complaints, except as docu Psychiatric: Reports no additional psychiatric complaints Endocrine: Reports no additional endocrine complaints Hematologic/Lymphatic: Reports no additional hematologic/lymphatic complaints Allergic/Immunologic: Reports no additional allergic/immunologic complaints Reports system reviewed and no additional complaints, except as documented and Reports Abnormal speech present <Gareth Padilla MD - Last Filed: 03/04/23 16:24> PMFSH Past Medical History Medical History: Medical History COVID-19 Late menses Vaginal odor <KAYLEE Sandoval - Last Filed: 03/04/23 13:35> Family History Family History: Family History Maternal Aunt Breast CA <KAYLEE Sandoval - Last Filed: 03/04/23 13:35> Social History Social History: Social History Housing: Apartment Alcohol intake: never Patient Tobacco Use Status: Never used Tobacco e-Cigarette/Vaping Use: Never Used Second Hand Smoke Exposure: No Advance Directives: No Advance Directives Information Provided: No service: No Current occupational status: employed Current occupational exposures/hazards: No Cognitive needs: No Hearing needs: No Vision needs: No <KAYLEE Sandoval - Last Filed: 03/04/23 13:35> Physical Exam Vital Signs: Vital Signs: Last Vital Signs Temp 98.3 F 03/04/23 13:32 Pulse 72 03/04/23 13:32 Resp 18 03/04/23 13:32 BP 135/70 03/04/23 13:32 Pulse Ox 99 03/04/23 13:32 O2 Del Method Room Air 03/04/23 13:32 BMI result Body Mass Index 33.5 <KAYLEE Sandoval - Last Filed: 03/04/23 13:35> Vital Signs: Last Vital Signs Temp 98.3 F 03/04/23 13:32 Pulse 72 03/04/23 13:32 Resp 18 03/04/23 13:32 BP 135/70 03/04/23 13:32 Pulse Ox 99 03/04/23 13:32 O2 Del Method Room Air 03/04/23 13:32 BMI result Body Mass Index 33.5 Vital signs have been reviewed as appeared to be correct. Blood pressure normal. Heart rate normal. Respiration rate normal. Temperature normal. Oxygen saturation normal. <Gareth Padilla MD - Last Filed: 03/04/23 16:24> Appearance: Alert. Oriented X3. No acute distress. Head: Normal external exam. Normocephalic. Atraumatic. No Contreras signs noted. No raccoon eyes noted Eyes: PERRLA. EOMI. Conjunctiva and sclera normal. Eyelids normal. ENT: TM's Normal. Pharynx normal. Uvula midline. Moist mucous membranes. No trismus noted. No drooling noted. No muffled voice noted. Neck: Normal inspection. Neck supple. FROM. No adenopathy. Thyroid Normal. No meningeal signs. No neck mass noted. CVS: Normal heart rate and rhythm. Heart sound normal. No murmurs noted. Pulses normal throughout. Respiratory: No respiratory distress. Painless inspiration. Breath sounds normal. No wheezes/rales/rhonchi noted. Chest nontender. No accessory muscle usage noted or decreased air movement noted. Abdomen: Soft and nontender. Bowel sounds normal in all 4 quadrants. No distention noted. No organomegaly noted. No visible injury noted. Pelvic exam: Deferred for the ultrasound. Back: No CVA tenderness. Full range of motion noted. Skin: Skin warm and dry. Normal skin color. Normal skin turgor. No rashes/lesions/lacerations noted. Extremities: No lower extremity edema. Extremities exhibit normal range of motion. Extremities nontender. Neuro: Oriented X 3. Cranial nerve exam: II-XII are grossly intact No motor deficit. No sensory deficit. Reflexes normal. <Gareth Padilla MD - Last Filed: 03/04/23 16:24> Course Course Course Narrative: RME - 28 y/o female currently 7 weeks who presents to the ER for evaluation of lower abdominal cramping and bleeding for the last 4 days. Reports the cramping is almost constant, sometimes worse on the right. She states the bleeding started as spotting and is now small clots. Plan: labs and OB U/S <KAYLEE Sandoval - Last Filed: 03/04/23 13:35> Medical Decision Making Medical Decision Making MDM Narrative: 28-year-old female 6 weeks with threatening miscarriage, ultrasound is showing a viable 6 weeks IUP. Positive Rh. patient was instructed to bedrest, avoid strenuous activity or heavy lifting. <Gareth Padilla MD - Last Filed: 03/04/23 16:24> Differential Diagnosis Differential Diagnoses: The differential diagnosis associated with the presentation includes (Ectopic , complete , threatened , anemia, rule out negative Rh.) <Gareth Padilla MD - Last Filed: 03/04/23 16:24> Lab Data MDM Lab Attestation statement: I reviewed the patient's lab results. <Gareth Padilla MD - Last Filed: 03/04/23 16:24> Result Diagrams: 03/04/23 13:57 03/04/23 13:57 <KAYLEE Sandoval - Last Filed: 03/04/23 13:35> Labs: Lab Results 03/04/23 03/04/23 03/04/23 Range/Units 13:57 13:57 13:57 WBC 11.5 H (4.8-10.8) X10*3/uL RBC 4.59 (4.20-5.50) X10*6/uL Hgb 13.4 (12.0-16.0) g/dl Hct 39.9 (37.0-47.0) % MCV 86.9 (80.0-98.0) fL MCH 29.2 (27.0-33.0) pg MCHC 33.6 (31.0-35.0) g/dl RDW 13.8 (11.0-16.0) % Plt Count 294 (160-400) X10*3/uL MPV 9.3 L (9.4-12.3) fL Immature Gran % (Auto) 0.3 (0.0-0.4) % Neut % (Auto) 69.1 (45-73) % Lymph % (Auto) 23.2 (20-40) % [place] % (Auto) 5.7 (2-11) % Eos % (Auto) 1.5 (0-4) % Baso % (Auto) 0.2 (0-2) % Lymph # (Auto) 2.7 (1.2-4.9) X10*3/uL [place] # (Auto) 0.7 (0.1-1.2) X10*3/uL Eos # (Auto) 0.2 (0.0-0.4) X10*3/uL Baso # (Auto) 0.0 (0.0-0.2) X10*3/uL Abs Immat Gran (auto) 0.04 H (0.00-0.03) X10*3/uL Absolute Neuts (auto) 8.0 (2.0-8.3) x10*3/uL Absolute Nucleated RBC 0.000 (0.0-0.012) X10*3/uL Nucleated RBC % (auto) 0.0 (0.0-0.2) /100WBC Sodium 139 (135-145) mmol/L Potassium 4.4 (3.3-5.1) mmol/L Chloride 108 (96-108) mmol/L Carbon Dioxide 23 (22-29) mmol/L Anion Gap 12 (12-20) BUN 9 (9-16) mg/dL Creatinine 0.66 (0.5-1.4) mg/dL Estim Creat Clear Calc 137.8 Estimated GFR > 60 Random Glucose 93 (60-115) mg/dL Calcium 9.6 (8.4-10.2) mg/dL Magnesium 2.0 (1.6-2.6) mg/dL Total Bilirubin 0.5 (0.0-1.0) mg/dL Direct Bilirubin 0.2 (0.0-0.5) mg/dL AST 14 (5-31) U/L ALT 12 (0-31) U/L Alkaline Phosphatase 64 (39-117) U/L Total Protein 6.9 (6.5-8.0) g/dL Albumin 4.0 (3.5-5.0) g/dL Beta HCG, Quant 44587 mIU/mL Blood Type A Positive <KAYLEE Sandoval - Last Filed: 03/04/23 13:35> Lab Results 03/04/23 03/04/23 03/04/23 Range/Units 13:57 13:57 13:57 WBC 11.5 H (4.8-10.8) X10*3/uL RBC 4.59 (4.20-5.50) X10*6/uL Hgb 13.4 (12.0-16.0) g/dl Hct 39.9 (37.0-47.0) % MCV 86.9 (80.0-98.0) fL MCH 29.2 (27.0-33.0) pg MCHC 33.6 (31.0-35.0) g/dl RDW 13.8 (11.0-16.0) % Plt Count 294 (160-400) X10*3/uL MPV 9.3 L (9.4-12.3) fL Immature Gran % (Auto) 0.3 (0.0-0.4) % Neut % (Auto) 69.1 (45-73) % Lymph % (Auto) 23.2 (20-40) % [place] % (Auto) 5.7 (2-11) % Eos % (Auto) 1.5 (0-4) % Baso % (Auto) 0.2 (0-2) % Lymph # (Auto) 2.7 (1.2-4.9) X10*3/uL [place] # (Auto) 0.7 (0.1-1.2) X10*3/uL Eos # (Auto) 0.2 (0.0-0.4) X10*3/uL Baso # (Auto) 0.0 (0.0-0.2) X10*3/uL Abs Immat Gran (auto) 0.04 H (0.00-0.03) X10*3/uL Absolute Neuts (auto) 8.0 (2.0-8.3) x10*3/uL Absolute Nucleated RBC 0.000 (0.0-0.012) X10*3/uL Nucleated RBC % (auto) 0.0 (0.0-0.2) /100WBC Sodium 139 (135-145) mmol/L Potassium 4.4 (3.3-5.1) mmol/L Chloride 108 (96-108) mmol/L Carbon Dioxide 23 (22-29) mmol/L Anion Gap 12 (12-20) BUN 9 (9-16) mg/dL Creatinine 0.66 (0.5-1.4) mg/dL Estim Creat Clear Calc 137.8 Estimated GFR > 60 Random Glucose 93 (60-115) mg/dL Calcium 9.6 (8.4-10.2) mg/dL Magnesium 2.0 (1.6-2.6) mg/dL Total Bilirubin 0.5 (0.0-1.0) mg/dL Direct Bilirubin 0.2 (0.0-0.5) mg/dL AST 14 (5-31) U/L ALT 12 (0-31) U/L Alkaline Phosphatase 64 (39-117) U/L Total Protein 6.9 (6.5-8.0) g/dL Albumin 4.0 (3.5-5.0) g/dL Beta HCG, Quant 45995 mIU/mL Blood Type A Positive <Gareth Padilla MD - Last Filed: 03/04/23 16:24> Independent Interpretation I performed an independent interpretation of an: Ultrasound (Pelvic ultrasound:1. Single live intrauterine . 2. Estimated age 6 weeks and 1 day. 3. Slight irregularity of the gestational sac along with possible subchorionic bleed. Attention to follow-up ultrasound in 7 days recommended. 4. There is a suspicion for possible bicornuate uter) <Gareth Padilla MD - Last Filed: 03/04/23 16:24> Discharge Plan Discharge Clinical Impression: Threatened <KAYLEE Sandoval - Last Filed: 03/04/23 13:35> Patient Disposition: Home, Self-Care <KAYLEE Sandoval - Last Filed: 03/04/23 13:35> Instructions: Threatened Miscarriage (ED) <KAYLEE Sandoval - Last Filed: 03/04/23 13:35> Additional Instructions: Follow-up with your OBGYN for care. <KAYLEE Sandoval - Last Filed: 03/04/23 13:35> Prescriptions: No Action valacyclovir 1 gram tablet 2,000 mg PO BID PRN (Reason: for outbreaks) 1 Days Qty: 4 4RF tinidazole 500 mg tablet 1 g PO DAILY 5 Days Qty: 10 0RF Rx Instructions: GIVE WITH FOOD amoxicillin-pot clavulanate 875-125 mg tablet 1 tab PO Q12H 7 Days Qty: 14 0RF cetirizine 10 mg tablet 10 mg PO DAILY PRN (Reason: allergy symptoms) Qty: 30 0RF clindamycin-benzoyl peroxide 1.2 %(1 % base) -5 % gel topical tretinoin 0.025 % cream topical <KAYLEE Sandoval - Last Filed: 03/04/23 13:35> Referrals: Shravan Funes, INVOICE CODER- [Primary Care Provider] - <KAYLEE Sandoval - Last Filed: 03/04/23 13:35>
[2023-03-04 14:03] LABS: MANUAL DIFF FLAG NO
[2023-03-04 14:04] LABS: Basophils Percent Auto 0.2 % (0-2); Eosinophils Absolute Auto 0.2 X10*3/uL (0.0-0.4); Eosinophils Percent Auto 1.5 % (0-4); Hematocrit 39.9 % (37.0-47.0); Hemoglobin 13.4 g/dl (12.0-16.0); Imm Gran Abs Auto 0.04 X10*3/uL (0.00-0.03); Imm Gran Pct Auto 0.3 % (0.0-0.4); Lymphocytes Absolute Auto 2.7 X10*3/uL (1.2-4.9); Lymphocytes Percent Auto 23.2 % (20-40); Mean Corpuscular HGB Conc 33.6 g/dl (31.0-35.0); Mean Corpuscular Hemoglobin 29.2 pg (27.0-33.0); Mean Corpuscular Volume 86.9 fL (80.0-98.0); Mean Platelet Volume 9.3 fL (9.4-12.3); Monocytes Absolute Auto 0.7 X10*3/uL (0.1-1.2); Monocytes Percent Auto 5.7 % (2-11); Neutrophils Percent Auto 69.1 % (45-73); Platelet Count 294 X10*3/uL (160-400); Red Blood Count 4.59 X10*6/uL (4.20-5.50); Red Cell Distribution Width 13.8 % (11.0-16.0); White Blood Count 11.5 X10*3/uL (4.8-10.8)
[2023-03-04 14:59] LABS: Alanine Aminotransferase 12 U/L (0-31); Alkaline Phosphatase 64 U/L (39-117); Anion Gap 12 (12-20); Aspartate Amino Transferase 14 U/L (5-31); Bilirubin Direct 0.2 mg/dL (0.0-0.5); Bilirubin Total 0.5 mg/dL (0.0-1.0); Blood Urea Nitrogen 9 mg/dL (9-16); Calcium 9.6 mg/dL (8.4-10.2); Carbon Dioxide 23 mmol/L (22-29); Chloride 108 mmol/L (96-108); Creatinine Clr Calc Pharmacy 137.8; Estimated Glomerular Filt Rate > 60; Glucose Random 93 mg/dL (60-115); Potassium 4.4 mmol/L (3.3-5.1); Sodium 139 mmol/L (135-145); Total Protein 6.9 g/dL (6.5-8.0)
== END 2023-03-04 16:55 | disposition home or self-care (01) ==
PROVIDERS: Physician Assistant; Emergency Provider Emergency Medicine; PCP Nurse Practitioner Family
DX: O20.0 Threatened abortion (principal); Z3A.01 Less than 8 weeks gestation of pregnancy
CPT/HCPCS: 36415; 76801; 76817; 80048; 80076; 83735; 84702; 85025; 86900; 86901; 99283; 99284

== ENCOUNTER 2023-03-31 13:39 | Outpatient (REF) | payer OTHER, SELFPAY ==
[2023-03-31 16:41] LABS: Appearance Urine Clear; Color Urine Yellow; Glucose Urine UA Negative (Negative); Leukocyte Esterase Urine Negative (Negative); Nitrite Urine Negative (Negative); Specific Gravity - Urine 1.015 (1.005-1.025); Urine Blood Negative (Negative); Urine Ketones Negative (Negative); Urine Protein Negative (Neg-Trace)
== END 2023-03-31 13:40 | disposition home or self-care (01) ==
LOC: HO.HMGCLDS 13:39
PROVIDERS: PCP Nurse Practitioner Family; Visit Provider Nurse Practitioner Family
DX: Z00.00 Encounter for general adult medical examination without abnormal findings (principal)
CPT/HCPCS: 81003

== ENCOUNTER 2023-04-27 13:54 | Outpatient (REF) | payer OTHER, SELFPAY ==
[2023-04-27 16:34] LABS: Appearance Urine Clear; Color Urine Yellow; Glucose Urine UA Negative (Negative); Leukocyte Esterase Urine Negative (Negative); Nitrite Urine Negative (Negative); Specific Gravity - Urine 1.015 (1.005-1.025); Urine Blood Negative (Negative); Urine Ketones Negative (Negative); Urine Protein Negative (Neg-Trace)
== END 2023-04-27 13:55 | disposition home or self-care (01) ==
LOC: HO.HMGCLDS 13:54
PROVIDERS: PCP Nurse Practitioner Family; Visit Provider Nurse Practitioner Family
DX: R30.0 Dysuria (principal)
CPT/HCPCS: 81003

== ENCOUNTER 2023-05-08 14:35 | Outpatient (REF) | payer OTHER, SELFPAY | END 2023-05-08 14:36 | disposition home or self-care (01) | LOC: HO.LNP 14:35 | PROVIDERS: Visit Provider Internal Medicine | DX: N89.8 Other specified noninflammatory disorders of vagina (principal) | CPT/HCPCS: 87480; 87510; 87660 ==

== ENCOUNTER 2023-05-10 14:26 | Outpatient (REF) | payer OTHER, SELFPAY | END 2023-05-10 14:27 | disposition home or self-care (01) | LOC: HO.LNP 14:26 | PROVIDERS: Visit Provider Internal Medicine | DX: Z13.89 Encounter for screening for other disorder (principal) ==

== ENCOUNTER 2023-07-13 08:48 | Outpatient (AMB) | payer OTHER, SELFPAY ==
--- NOTE | 2023-07-13 09:05 | A.OFFPC_ITS ---
Vital Signs 07/13/23 09:06 Height 5 ft 4 in Weight 211 lb BMI 36.2 BP 110/78 Blood Pressure Location Rt brachial Position Sitting Pulse 78 Pulse Source Pulse Oximeter Pulse Oximetry (%) 100 Oxygen Delivery Method Room Air Intake Visit Reasons: Discuss Personal matters Allergies No Known Allergies Allergy (Verified 07/13/23 10:22) Medication List - Last Reconciled 07/13/23 by MARYLOU Leija-SOL cetirizine (All Day Allergy (cetirizine)) 10 mg PO DAILY PRN 90 days clindamycin-benzoyl peroxide 1.2 %(1 % base) -5 % topical levonorgestrel-ethinyl estrad 0.1-20 mg-mcg (Vienva) 1 tab PO DAILY tretinoin 0.025% appl topical valacyclovir 2,000 mg (2 x 1 gram) PO BID PRN 1 day Tobacco use date assessed: 07/13/23 Dental Screening Dental Screen Date: 07/13/23 Did you have a dental visit in the last 12 months?: Yes Did you have a dental problem in the last 6 months where you did not have access to dental care?: No Was dental information given to patient?: Patient has dentist HPI Discuss Personal matters HPI Details Pt has a hx of herpes type 1. She has not had any recent cold sores. Explained to pt that I would rather her not be on daily medication for this unless she is getting cold sores frequently. Pt c/o allergies. Will send cetirizine. Denies fever, chills, and sore throat. PFSH Medical History COVID-19 Late menses Vaginal odor Family History Maternal Aunt Breast CA Social History Housing: Apartment Alcohol intake: never Patient Tobacco Use Status: Never used Tobacco e-Cigarette/Vaping Use: Never Used Second Hand Smoke Exposure: No service: No Current occupational status: employed Current occupational exposures/hazards: No Cognitive needs: No Hearing needs: No Vision needs: No Female Reproductive History Menstrual Age of Menarche: 13 Questionnaire Thrive Questionnaire Date Thrive assessed: 01/05/23 WILL-7 AMB Questionnaire WILL-7 Date WILL - 7 assessed: 01/05/23 Source: Developed by Drs. Raudel Gerardo, Shonda Cross, Brent Richards and colleagues, with an educational janes from [employer]. Review of Systems Const Reports as per HPI Physical exam (Primary Care) Vital Signs: Last Vital Signs Pulse 78 07/13/23 09:06 BP 110/78 07/13/23 09:06 Pulse Ox 100 07/13/23 09:06 Oxygen Delivery Method Room Air 07/13/23 09:06 BMI result Body Mass Index 36.2 Tobacco/Smoking Status: Tobacco use Status Tobacco use date assessed 07/13/23 07/13/23 09:11 Patient Tobacco Use Status Never used Tobacco 07/13/23 09:11 e-Cigarette/Vaping Use Never Used 07/13/23 09:11 Thrive Assessment: Date of Thrive Assessment Date Thrive assessed 01/05/23 07/13/23 09:11 Const General: cooperative Nutritional Appearance: obese Orientation/consciousness: patient oriented x3 HENMT Other: left tonsil slightly enlarged Neck Lymphatic: no lymphadenopathy noted Resp Effort & Inspection: normal respiratory effort Auscultation: clear to auscultation bilaterally Cardio Rate: regular rate Rhythm: regular rhythm Heart sounds: S1 normal heart sound present and S2 normal heart sound present Neuro General: patient oriented x3 Psych Appearance: grossly normal Mental Status: mental status grossly normal Speech and movement: Normal speech and movement present Affect: normal affect Attitude: cooperative Thought process: Normal thought process present Thought content: Normal thought content present Insight: Good insight present (Psych) Judgement: Good judgement present (Psych) Assessment and Plan Assessment & Plan (1) Cold sore: Code(s): B00.1 - Herpesviral vesicular dermatitis Plan The patient agreed to the use of a medical technologist chief for this encounter. Scribed for LINO Her by Lindsey Gonzalez medical technologist chief, on 07/13/2023 at 09:15 EST. Medications: New cetirizine (All Day Allergy (cetirizine)) 10 mg PO DAILY PRN 90 tabs 0RF allergy symptoms 90 days Coding Level of Care Code Est Pt Level 3 (60748) Diagnoses Cold sore B00.1
[2023-07-13 09:06] VITALS: BP 110/78; PULSE 78; O2SAT 100; BMI 36.2
== END 2023-07-13 10:31 | disposition home or self-care (01) ==
PROVIDERS: PCP Nurse Practitioner Family; Visit Provider Nurse Practitioner Family
DX: B00.1 Herpesviral vesicular dermatitis (principal)
CPT/HCPCS: 99213

== ENCOUNTER 2023-07-28 10:41 | Outpatient (REF) | payer OTHER, SELFPAY ==
[2023-07-28 16:06] LABS: Appearance Urine Clear; Color Urine Yellow; Glucose Urine UA Negative (Negative); Leukocyte Esterase Urine Negative (Negative); Nitrite Urine Negative (Negative); PH 6.5 (5.0-9.0); Urine Blood Negative (Negative); Urine Ketones Negative (Negative); Urine Protein Negative (Neg-Trace)
[2023-07-28 16:12] LABS: Bacteria Urine None Seen (None Seen); Hyaline Casts Urine 0-2 /LPF (0-2); RBC Urine 0-2 /HPF (0-2); Squamous Epithelial Cell Urine 0-2 /HPF (0-2); WBC Urine 0-5 /HPF (0-5)
== END 2023-07-28 10:42 | disposition home or self-care (01) ==
LOC: HO.HMGCLDS 10:41
PROVIDERS: PCP Nurse Practitioner Family; Visit Provider Nurse Practitioner Family
DX: R10.2 Pelvic and perineal pain (principal); B37.31 Acute candidiasis of vulva and vagina
CPT/HCPCS: 81001; 87086

== ENCOUNTER 2023-09-25 | Outpatient (REF) | payer OTHER, SELFPAY ==
[2023-09-26 13:09] LABS: Influenza A PCR NEGATIVE (Negative); Influenza B PCR NEGATIVE (Negative); Resp Syncy Virus RNA Qual PCR NEGATIVE (Negative); SARS COV2 PCR INHOUSE NEGATIVE (Negative)
== END 2023-09-25 00:01 | disposition home or self-care (01) ==
LOC: HO.HMGCLNP
PROVIDERS: Visit Provider Internal Medicine
DX: R43.9 Unspecified disturbances of smell and taste (principal); Z11.52 Encounter for screening for COVID-19
CPT/HCPCS: 0241U

== ENCOUNTER 2023-09-25 15:21 | Outpatient (AMB) | payer OTHER, SELFPAY ==
--- NOTE | 2023-09-25 15:44 | AM.OFFWIN_ITS ---
Intake Vital Signs 09/25/23 15:44 Height 5 ft 4 in Intake Visit Reasons: EST/possible Pneumonia? (stuart) Intake Note: Patient is here today for chest pain and also backache towards the rib. Patient states pain started today around 1pm. Patient Tobacco Use Status: Never used Tobacco Allergies No Known Allergies Allergy (Verified 09/25/23 16:15) Medication List - Last Reconciled 09/25/23 by Matt Adame MD cetirizine (All Day Allergy (cetirizine)) 10 mg PO DAILY PRN 90 days clindamycin-benzoyl peroxide 1.2 %(1 % base) -5 % topical levonorgestrel-ethinyl estrad 0.1-20 mg-mcg (Vienva) 1 tab PO DAILY tretinoin 0.025% appl topical valacyclovir 2,000 mg (2 x 1 gram) PO BID PRN 1 day Do you need a note to return to daycare/school/sports/work: No HPI EST/possible Pneumonia? (stuart) HPI Details 28-year-old female presents to the [facility] for a sick visit. . Reporting symptoms of sinus congestion, sore throat and difficulty swallowing. Low-grade fever. No family member is sick. No recent travel. Patient reports symptoms of malaise and fatigue. [facility] Medical History COVID-19 Late menses Vaginal odor Family History Maternal Aunt Breast CA Social History Housing: Apartment Alcohol intake: never Patient Tobacco Use Status: Never used Tobacco e-Cigarette/Vaping Use: Never Used Second Hand Smoke Exposure: No service: No Current occupational status: employed Current occupational exposures/hazards: No Cognitive needs: No Hearing needs: No Vision needs: No Female Reproductive History Menstrual Age of Menarche: 13 Physical Exam Const General: cooperative and healthy appearing Nutritional Appearance: well nourished Orientation/consciousness: patient oriented x3 Limitations: no limitations HEENT Head: Yes normal to inspection Eyes General: appearance normal, both eyes and all related structures Neck Neck: Yes normal visual inspection Chest Chest palpation & inspection: normal palpation of entire chest wall Resp Effort & Inspection: normal respiratory effort Neuro General: patient oriented x3 Assessment & Plan Assessment & Plan (1) Upper respiratory tract infection: Code(s): J06.9 - Acute upper respiratory infection, unspecified Plan: Mostly viral etiology. No antibiotics needed. If symptoms do not improve to follow-up here. Orders: Orders SARS-CoV2/FLU/RSV Today R43.9 - Unspecified disturbances of smell and taste Coding Level of Care Code Est Pt Level 3 (29058) Diagnoses Upper respiratory tract infection J06.9
== END 2023-09-25 16:25 | disposition home or self-care (01) ==
PROVIDERS: PCP Nurse Practitioner Family; Visit Provider Internal Medicine
DX: J06.9 Acute upper respiratory infection, unspecified (principal)
CPT/HCPCS: 99213

== ENCOUNTER 2023-12-06 11:33 | Outpatient (REF) | payer OTHER, SELFPAY ==
[2023-12-06 11:50] LABS: MANUAL DIFF FLAG NO
[2023-12-06 12:36] LABS: Basophils Percent Auto 0.3 % (0-2); Eosinophils Absolute Auto 0.1 X10*3/uL (0.0-0.4); Eosinophils Percent Auto 1.1 % (0-4); Imm Gran Abs Auto 0.02 X10*3/uL (0.00-0.03); Imm Gran Pct Auto 0.2 % (0.0-0.4); Lymphocytes Absolute Auto 3.5 X10*3/uL (1.2-4.9); Lymphocytes Percent Auto 37.8 % (20-40); Mean Corpuscular HGB Conc 34.1 g/dl (31.0-35.0); Mean Corpuscular Hemoglobin 29.7 pg (27.0-33.0); Mean Platelet Volume 9.5 fL (9.4-12.3); Monocytes Absolute Auto 0.4 X10*3/uL (0.1-1.2); Monocytes Percent Auto 4.5 % (2-11); Neutrophils Absolute Auto 5.1 x10*3/uL (2.0-8.3); Neutrophils Percent Auto 56.1 % (45-73); Platelet Count 352 X10*3/uL (160-400); Red Blood Count 4.71 X10*6/uL (4.20-5.50); Red Cell Distribution Width 13.4 % (11.0-16.0); White Blood Count 9.2 X10*3/uL (4.8-10.8)
[2023-12-06 13:32] LABS: Alanine Aminotransferase 27 U/L (0-31); Albumin Level 4.2 g/dL (3.5-5.0); Alkaline Phosphatase 71 U/L (39-117); Anion Gap 14 (12-20); Aspartate Amino Transferase 20 U/L (5-31); Bilirubin Total 0.5 mg/dL (0.0-1.0); Blood Urea Nitrogen 9 mg/dL (9-16); Carbon Dioxide 26 mmol/L (22-29); Chloride 103 mmol/L (96-108); Estimated Glomerular Filt Rate > 60; Glucose Random 111 mg/dL (60-115); Potassium 4.1 mmol/L (3.3-5.1); Sodium 139 mmol/L (135-145); Total Protein 7.7 g/dL (6.5-8.0)
[2023-12-06 13:36] LABS: TSH reflex Free T4 0.81 uIU/mL (0.32-4.0)
[2023-12-06 13:50] LABS: Appearance Urine Clear; Color Urine Yellow; Glucose Urine UA Negative (Negative); Leukocyte Esterase Urine Negative (Negative); Nitrite Urine Negative (Negative); PH 5.5 (5.0-9.0); Urine Blood Negative (Negative); Urine Ketones Negative (Negative); Urine Protein Negative (Neg-Trace)
== END 2023-12-06 11:34 | disposition home or self-care (01) ==
LOC: HO.LAB 11:33
PROVIDERS: PCP Nurse Practitioner Family; Visit Provider Nurse Practitioner Family
DX: H92.03 Otalgia, bilateral (principal); R53.83 Other fatigue; R30.0 Dysuria
CPT/HCPCS: 36415; 80053; 81003; 84443; 85025; 87086

== ENCOUNTER 2023-12-09 13:05 | Outpatient (AMB) | payer OTHER, SELFPAY ==
--- NOTE | 2023-12-09 13:08 | MHC.OFFWIV ---
Intake Vital Signs 12/09/23 13:10 Height 5 ft 4 in Weight 206 lb 4 oz BMI 35.4 BP 122/76 Blood Pressure Location Lt brachial Position Sitting Pulse 78 Pulse Source Pulse Oximeter Temp 98.0 F Temp Source Oral Pulse Oximetry (%) 99 Intake Visit Reasons: EP Shravan sent her in for personal matter (BV) Intake Note: pt is here for suspicion of BV Patient Tobacco Use Status: Never used Tobacco Allergies No Known Allergies Allergy (Verified 12/09/23 13:10) Do you need a note to return to daycare/school/sports/work: No HPI HPI Comments History of Present Illness Details This is a 28-year-old female with history of recurrent bacterial vaginosis who presented to the office with complaints of bacterial vaginosis. She reports vaginal irritation x1 week. She underwent urine testing, which was negative for urinary tract infection. Her primary care physician wants her tested for BV panel. [facility] Medical History COVID-19 Late menses Vaginal odor Family History Maternal Aunt Breast CA Social History Housing: Apartment Alcohol intake: never Patient Tobacco Use Status: Never used Tobacco e-Cigarette/Vaping Use: Never Used Second Hand Smoke Exposure: No service: No Current occupational status: employed Current occupational exposures/hazards: No Cognitive needs: No Hearing needs: No Vision needs: No Female Reproductive History Menstrual Age of Menarche: 13 Review of Systems Const All systems reviewed & are unremarkable except as noted in HPI and below Reports no additional complaints Eyes Reports no additional complaints ENT Reports no additional complaints Card Reports no additional complaints Resp Reports no additional complaints GI Reports no additional complaints Reports no additional complaints Musc Reports no additional complaints Skin/Breast Reports system reviewed and no additional complaints, except as documented Neuro Reports no additional complaints Psych Reports no additional complaints Endo Reports no additional complaints Rui/Lymph Reports no additional complaints Aller/Immun Reports no additional complaints Physical Exam Vital Signs: Last Vital Signs Temp 98.0 F 12/09/23 13:10 Pulse 78 12/09/23 13:10 BP 122/76 12/09/23 13:10 Pulse Ox 99 02/03/24 13:10 BMI result Body Mass Index 35.4 Const Other: Vital signs reviewed. Pelvic exam deferred per patient request. Constitutional: Non-toxic appearing. No acute distress. Well-developed and well-nourished. HEENT: Normocephalic and atraumatic. Skin: Warm and dry. No rashes or lesions noted. Neck: Full and painless range of motion. No cervical lymphadenopathy. Cardio: Regular rate. Pulmonary: No respiratory distress. No accessory muscle usage. Musculoskeletal: Normal range of motion in joints throughout the body. No deformity or other signs of injury. Neuro: Alert and oriented x4. Cranial nerves 2-12 grossly intact. No focal deficits appreciated. Psych: Normal mood and affect. Assessment & Plan Assessment & Plan (1) Vaginal irritation: Code(s): N89.8 - Other specified noninflammatory disorders of vagina Plan: This is a 28-year-old female who presents to the walk-in clinic with concerns for bacterial vaginosis and/or yeast infection. BV panel was sent. Patient will be called with the results. Orders: Orders Bacterial Vaginosis Panel Today N89.8 - Other specified noninflammatory disorders of vagina Coding Level of Care Code Est Pt Level 3 (19645) Diagnoses Vaginal irritation N89.8
[2023-12-09 13:10] VITALS: BP 122/76; PULSE 78; TEMP 36.7; O2SAT 99; BMI 35.4
== END 2023-12-09 13:35 | disposition home or self-care (01) ==
PROVIDERS: PCP Nurse Practitioner Family; Visit Provider Physician Assistant Medical
DX: N89.8 Other specified noninflammatory disorders of vagina (principal)
CPT/HCPCS: 99051; 99213

== ENCOUNTER 2023-12-09 13:30 | Outpatient (REF) | payer OTHER, SELFPAY ==
[2023-12-10 12:01] LABS: BV Int Neg Control Negative (Negative); BV Int Pos Control Positive (Positive)
== END 2023-12-09 13:31 | disposition home or self-care (01) ==
LOC: HO.LAB 13:30
PROVIDERS: Visit Provider Physician Assistant Medical
DX: N89.8 Other specified noninflammatory disorders of vagina (principal)
CPT/HCPCS: 87480; 87510; 87660

== ENCOUNTER 2024-01-11 16:23 | Outpatient (AMB) | payer OTHER, SELFPAY ==
[2024-01-11 16:27] VITALS: BP 122/70; PULSE 75; O2SAT 98; BMI 35.5
--- NOTE | 2024-01-11 16:27 | A.OFFPC_ITS ---
Vital Signs 01/11/24 16:27 Height 5 ft 4 in Weight 207 lb BMI 35.5 BP 122/70 Blood Pressure Location Lt brachial Position Sitting Pulse 75 Pulse Source Pulse Oximeter Pulse Oximetry (%) 98 Oxygen Delivery Method Room Air Intake Visit Reasons: Annual Exam Intake Note: pt is here for annual exam Certified Prosthetist/Orthotist Required: No Accompanied by: Self / Same As Patient Allergies No Known Allergies Allergy (Verified 01/11/24 18:01) Medication List - Last Reconciled 01/11/24 by LINO Leija cetirizine (All Day Allergy (cetirizine)) 10 mg PO DAILY PRN 90 days norethindrone-e.estradiol-iron 1 mg-20 mcg (21)/75 mg (7) ([place] Fe 1/20 (28)) 1 tab PO DAILY tretinoin 0.025% appl topical Tobacco use date assessed: 01/11/24 Dental Screening Dental Screen Date: 01/11/24 Did you have a dental visit in the last 12 months?: Yes Did you have a dental problem in the last 6 months where you did not have access to dental care?: No Was dental information given to patient?: Patient has dentist HPI Annual Exam HPI Details Pt is here for a PE. Will order labs. 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 [facility] Medical History Vaginal odor Late menses COVID-19 Surgical History No pertinent past surgical history Family History Maternal Aunt Breast CA Social History Housing: Apartment Alcohol intake: never Patient Tobacco Use Status: Never used Tobacco e-Cigarette/Vaping Use: Never Used Second Hand Smoke Exposure: No service: No Current occupational status: employed Current occupational exposures/hazards: No Cognitive needs: No Hearing needs: No Vision needs: No Female Reproductive History Menstrual Age of Menarche: 13 Questionnaire PHQ-9 Over the last 2 weeks, how often have you been bothered by any of the following problems? 1. Little interest or pleasure in doing things: not at all 2. Feeling down, depressed, or hopeless: not at all 3. Trouble falling or staying asleep, or sleeping too much: not at all 4. Feeling tired or having little energy: more than half the days 5. Poor appetite or overeating: not at all 6. Feeling bad about yourself - or that you are a failure or have let yourself or your family down: not at all 7. Trouble concentrating on things, such as reading the newspaper or watching television: not at all 8. Moving or speaking so slowly that other people could have noticed. Or the opposite - being so fidgety or restless that you have been moving around a lot more than usual: not at all 9. Thoughts that you would be better off or of hurting yourself in some way: not at all Total score: 2 Depression Screening Interpretation: Negative Depression Screening Done: Yes 24094 - PHQ-9 Billing: Yes Source: Developed by Drs. Raudel Gerardo, Shonda Cross, Brent Richards and colleagues, with an educational janes from [employer]. Thrive Questionnaire Date Thrive assessed: 01/11/24 AUDIT C Alcohol Use Questionnaire (AUDIT-C) 1. How often do you have a drink containing alcohol?: Never 3. How often do you have six or more drinks on one occasion?: Never Total Score: 0 Score Reviewed/Action Taken: No WILL-7 AMB Questionnaire WILL-7 Date WILL - 7 assessed: 01/11/24 Feeling nervous, anxious, or on edge: 0 = Not at all Not being able to stop or control worryin = Not at all Worrying too much about different things: 1 = Several days Trouble relaxin = More than half the days Being so restless that it is hard to sit still: 0 = Not at all Becoming easily annoyed or irritable: 2 = More than half the days Feeling afraid as if something awful might happen: 0 = Not at all Total WILL-7 score (0-4 normal; 5-9 mild; 10-14 moderate; 15-21 severe): 5 Source: Developed by Drs. Raudel Gerardo, Brent Sunshine and colleagues, with an educational janes from [employer]. WILL-7 Assessment Billing WILL-7 Assessment Tool: WILL-7 Assessment 08028 Review of Systems Const Denies chills and Denies fever(s) Eyes Denies blurry vision ENT Denies vertigo, Denies dizziness and Denies sore throat Card Denies chest pain at rest, Denies chest pain with activity, Denies diaphoresis, Denies dyspnea and Denies dyspnea on exertion Resp Denies cough, Denies dyspnea, Denies dyspnea on exertion and Denies wheezing GI Denies abdominal pain, Denies melena, Denies hematochezia, Denies constipation, Denies diarrhea and Denies loose stools Denies hematuria Musc Denies numbness and Denies tingling Skin/Breast Denies lesions Neuro Denies vertigo, Denies dizziness, Denies numbness and Denies tingling Psych Denies anxiety, Denies depression, Denies homicidal ideation, Denies suicidal ideation and Denies other (substance abuse) Aller/Immun Denies wheezing Physical exam (Primary Care) Vital Signs: Last Vital Signs Pulse 75 01/11/24 16:27 BP 122/70 01/11/24 16:27 Pulse Ox 98 01/11/24 16:27 Oxygen Delivery Method Room Air 01/11/24 16:27 BMI result Body Mass Index 35.5 Tobacco/Smoking Status: Tobacco use Status Tobacco use date assessed 01/11/24 01/11/24 16:34 Patient Tobacco Use Status Never used Tobacco 01/11/24 16:34 e-Cigarette/Vaping Use Never Used 01/11/24 16:34 PHQ-9: PHQ-9 Score PHQ-9: Total score 2 01/11/24 16:55 Depression Screening Interpretation: Negative Thrive Assessment: Date of Thrive Assessment Date Thrive assessed 01/11/24 01/11/24 16:34 Const General: cooperative Nutritional Appearance: obese Orientation/consciousness: patient oriented x3 HENMT Head: Yes normal to inspection, Yes normocephalic and Yes atraumatic Ears: TM's normal bilaterally Eyes General: appearance normal, both eyes and all related structures Alignment and Position: alignment normal and position normal Neck Neck: Yes normal visual inspection and Yes no lymphadenopathy Thyroid: Thyroid normal Resp Effort & Inspection: normal respiratory effort Auscultation: clear to auscultation bilaterally Cardio Rate: regular rate Rhythm: regular rhythm Heart sounds: S1 normal heart sound present, S2 normal heart sound present and no murmurs GI Palpation (GI): Soft to palpation and nontender Auscultation: normal bowel sounds Skin Rashes: no rashes Neuro General: patient oriented x3, moves all extremities, no focal motor deficits and deep tendon reflexes 2+ bilaterally Romberg Test: Negative Psych Appearance: grossly normal Mental Status: mental status grossly normal Speech and movement: Normal speech and movement present Affect: normal affect Attitude: cooperative Thought process: Normal thought process present Thought content: Normal thought content present Insight: Good insight present (Psych) Judgement: Good judgement present (Psych) Assessment and Plan Assessment & Plan (1) Poor nutrition: Code(s): E63.9 - Nutritional deficiency, unspecified (2) Obesity: Code(s): E66.9 - Obesity, unspecified Plan: referral to dietitian (3) Physical exam: Code(s): Z00.00 - Encounter for general adult medical examination without abnormal findings Orders: Orders Complete Blood Count Auto Diff Today Z00.00 - Encounter for general adult medical examination without abnormal findings Comprehensive [place]. Panel Fast Today Z00.00 - Encounter for general adult medical examination without abnormal findings UA CC w/rflx Micro + Cult Today Z00.00 - Encounter for general adult medical examination without abnormal findings TSH reflex Free T4 Today Z00.00 - Encounter for general adult medical examination without abnormal findings Lipid Panel Today Z00.00 - Encounter for general adult medical examination without abnormal findings Referrals Nutrition/Dietitian Referral E63.9 - Nutritional deficiency, unspecified, E66.9 - Obesity, unspecified Coding Level of Care Code Est Pt Prev Care 18-39y(69342) Diagnoses Poor nutrition E63.9 Obesity E66.9 Physical exam Z00.00 Additional Codes WILL-7 Assessment Billing - WILL-7 Assessment Tool: WILL-7 Assessment [id number] ([id number])
== END 2024-01-11 17:17 | disposition home or self-care (01) ==
PROVIDERS: Visit Provider Nurse Practitioner Family
DX: Z00.00 Encounter for general adult medical examination without abnormal findings (principal); E63.9 Nutritional deficiency, unspecified; E66.9 Obesity, unspecified; Z68.35 Body mass index [BMI] 35.0-35.9, adult
CPT/HCPCS: 99395

== ENCOUNTER 2024-01-31 11:50 | Outpatient (REF) | payer OTHER, SELFPAY ==
[2024-01-31 13:17] LABS: MANUAL DIFF FLAG NO
[2024-01-31 13:20] LABS: Appearance Urine Clear; Color Urine Yellow; Glucose Urine UA Negative (Negative); Leukocyte Esterase Urine Negative (Negative); Nitrite Urine Negative (Negative); PH 5.5 (5.0-9.0); Specific Gravity - Urine >= 1.030 (1.005-1.025); Urine Blood Negative (Negative); Urine Ketones Trace mg/dL (Negative); Urine Protein Negative (Neg-Trace)
[2024-01-31 13:45] LABS: Basophils Percent Auto 0.3 % (0-2); Eosinophils Absolute Auto 0.2 X10*3/uL (0.0-0.4); Eosinophils Percent Auto 1.7 % (0-4); Hematocrit 39.1 % (37.0-47.0); Hemoglobin 13.3 g/dl (12.0-16.0); Imm Gran Abs Auto 0.02 X10*3/uL (0.00-0.03); Imm Gran Pct Auto 0.2 % (0.0-0.4); Lymphocytes Absolute Auto 3.2 X10*3/uL (1.2-4.9); Lymphocytes Percent Auto 34.4 % (20-40); Mean Corpuscular Hemoglobin 29.2 pg (27.0-33.0); Mean Corpuscular Volume 85.7 fL (80.0-98.0); Mean Platelet Volume 9.7 fL (9.4-12.3); Monocytes Absolute Auto 0.5 X10*3/uL (0.1-1.2); Monocytes Percent Auto 5.2 % (2-11); Neutrophils Absolute Auto 5.4 x10*3/uL (2.0-8.3); Neutrophils Percent Auto 58.2 % (45-73); Platelet Count 315 X10*3/uL (160-400); Red Blood Count 4.56 X10*6/uL (4.20-5.50); Red Cell Distribution Width 13.4 % (11.0-16.0); White Blood Count 9.3 X10*3/uL (4.8-10.8)
[2024-01-31 14:18] LABS: Alanine Aminotransferase 24 U/L (0-31); Albumin Level 4.1 g/dL (3.5-5.0); Alkaline Phosphatase 66 U/L (39-117); Anion Gap 9 (12-20); Aspartate Amino Transferase 20 U/L (5-31); Bilirubin Total 0.4 mg/dL (0.0-1.0); Blood Urea Nitrogen 12 mg/dL (9-16); Calcium 9.5 mg/dL (8.4-10.2); Carbon Dioxide 25 mmol/L (22-29); Chloride 106 mmol/L (96-108); Cholesterol 168 mg/dL (<200); Estimated Glomerular Filt Rate > 60; Glucose Fasting 90 mg/dL (60-99); HDL Cholesterol 51 mg/dL (>40); LDL Cholesterol Calculated 104 mg/dL (<100); Potassium 4.1 mmol/L (3.3-5.1); Sodium 136 mmol/L (135-145); Total Protein 7.3 g/dL (6.5-8.0); Triglycerides 66 mg/dL (<150)
== END 2024-01-31 11:51 | disposition home or self-care (01) ==
LOC: HO.HMGCLDS 11:50
PROVIDERS: PCP Nurse Practitioner Family; Visit Provider Nurse Practitioner Family
DX: Z00.00 Encounter for general adult medical examination without abnormal findings (principal); Z13.6 Encounter for screening for cardiovascular disorders
CPT/HCPCS: 36415; 80053; 80061; 81003; 84443; 85025

== ENCOUNTER 2024-03-14 11:52 | Outpatient (AMB) | payer OTHER, SELFPAY ==
[2024-03-14 11:45] VITALS: BMI 35.0
--- NOTE | 2024-03-14 11:45 | MHC.AMNUTRGE ---
VS Expanded 03/14/24 11:45 03/21/24 22:05 Height 5 ft 4 in 5 ft 4 in Weight 204 lb 2.369 oz 204 lb BMI 35.0 35.0 Intake Visit Reasons: Obesity/CONFIRMED Allergies No Known Allergies Allergy (Verified 01/11/24 18:01) Nutrition Presentation Details: Pt presents for MNT for obesity /poor nutrition . Pt was referred by PCP, Arsalan Funes Pt reports having lactose intolerance. challenges: lack of meal planning food frequency fruits: 0-1/d ve-2 x/wk dairy : 2/d fish: 0-2/m fried foods: 3+/wk increased appetite in the evening/night Pt reports physical activity 5 x/wk 30 + min etoh- smoking- BS Monitoring Most Recent Diabetes Results: Cholesterol 168 mg/dL (<200) 01/31/24 HDL Cholesterol 51 mg/dL (>40) 01/31/24 Triglycerides 66 mg/dL (<150) 01/31/24 Creatinine 0.65 mg/dL (0.5-1.4) 01/31/24 Blood Urea Nitrogen 12 mg/dL (9-16) 01/31/24 Sodium 136 mmol/L (135-145) 01/31/24 Potassium 4.1 mmol/L (3.3-5.1) 01/31/24 Chloride 106 mmol/L (96-108) 01/31/24 Carbon Dioxide 25 mmol/L (22-29) 01/31/24 Calcium 9.5 mg/dL (8.4-10.2) 01/31/24 AST 20 U/L (5-31) 01/31/24 ALT 24 U/L (0-31) 01/31/24 Total Protein 7.3 g/dL (6.5-8.0) 01/31/24 Albumin 4.1 g/dL (3.5-5.0) 01/31/24 IQC-Gqgoqik-Hx.Jeor Equation Height: 5 ft 4 in Weight: 204 lb Resting Metabolic Rate: 1641.64 Calculated Activity Level: Mild Activity Calories Needed to Maintain Weight: 2257.26 Diagnosis Nutrition problem #1: excessive energy intake As related to (etiology) #1: diagnosis As evidenced by (sign/symptom) #1: knowledge deficit of diet Monitoring/Goals Nutrition problem monitoring: total CHO intake Nutrition goal/outcome: wt loss 5lbs in 2 months and list 3 high fiber foods Learning/Education Readiness to learn: good Stages of change: preparation Educational materials provided: Yes (healthy plate, carbs) PFSH Medical History Vaginal odor Late menses COVID-19 Surgical History No pertinent past surgical history Family History Maternal Aunt Breast CA Social History Housing: Apartment Alcohol intake: never Patient Tobacco Use Status: Never used Tobacco e-Cigarette/Vaping Use: Never Used Second Hand Smoke Exposure: No service: No Current occupational status: employed Current occupational exposures/hazards: No Cognitive needs: No Hearing needs: No Vision needs: No Female Reproductive History Menstrual Age of Menarche: 13 Assessment & Plan Assessment & Plan (1) Poor nutrition: Code(s): E63.9 - Nutritional deficiency, unspecified Category: Medical Plan: Wt: 93 Kg ( ) Est kcal needs as per MSJ: 2300 (40% carb, 30% protein/fat) Est fluid needs as per 25-30 ml/d: 2800 Est prot per day as per 1 g/kg bw: 93 Recommend fiber intake : 8-10 g per day and gradually increase to 25-28 g per day for women and 35-38 g for men or as tolerated Recommend sodium intake per day : less than 2000 mg Educated patient on: ( R = reviewed V = verbalizes understanding N/R = needs review N/A = not applicable Food sources of carbohydrate, adequate serving sizes and its role in various health conditions: R Differences between complex carbohydrates a simple carbohydrates, role of fiber in diet: R V N/R Lean protein sources of foods: R hydration: R Differences between types of fats and role in diet (mono on saturated fat fatty acids, saturated fatty acids, trans fats): R V N/R Food sources of sodium in salt and healthy modifications for heart health in kidney health: R V R/V Vitamins and minerals: R V N/R Healthy plate method concept: R Physical activity: Benefits a precaution: R V N/R Hypoglycemia protocol (rule of 15): R V N/R Dietary prevention of Hyperglycemia: R V R/V (2) Obesity: Code(s): E66.9 - Obesity, unspecified Category: Medical Plan: Balancing meals following healthy plate method Reducing on lactose containing foods est kcal rec: 2300 est prot rec : 93 g/day est fluid rec: 2800 ml/d Recommend fiber intake : 8-10 g per day and gradually increase to 25-28 g per day for women and 35-38 g for men or as tolerated Recommend sodium intake per day : less than 2000 mg Patient Instructions: Work on balancing your meals following healthy plate method , choosing complex carbs and reducing total per meal to less than 75 g at meal and less than 30 g at bedtime see meal ideas as reference Coding Level of Care Code Nutr Indiv Intake (73633) Diagnoses Poor nutrition E63.9 Obesity E66.9 Time Spent (min) 30
[2024-03-25 09:21] VITALS: BMI 35.0
== END 2024-03-14 12:14 | disposition home or self-care (01) ==
LOC: HO.ENCR 11:52
PROVIDERS: PCP Nurse Practitioner Family; Visit Provider Dietitian, Registered
DX: E63.9 Nutritional deficiency, unspecified (principal); E66.9 Obesity, unspecified

== ENCOUNTER → 2024-03-14 11:52 | Outpatient (BNVA) | payer OTHER, SELFPAY | PROVIDERS: PCP Nurse Practitioner Family; Visit Provider Dietitian, Registered | DX: E66.9 Obesity, unspecified (principal); Z68.35 Body mass index [BMI] 35.0-35.9, adult; E63.9 Nutritional deficiency, unspecified; Z71.3 Dietary counseling and surveillance | CPT/HCPCS: 97802 ==

== ENCOUNTER 2024-03-28 14:21 | Outpatient (AMB) | payer OTHER, SELFPAY ==
[2024-03-28 14:25] VITALS: BP 110/80; PULSE 79; TEMP 36.6; O2SAT 98; BMI 35.0
--- NOTE | 2024-03-28 14:25 | AM.OFFWIN_ITS ---
Intake Vital Signs 03/28/24 14:25 Height 5 ft 4 in Weight 204 lb BMI 35.0 BP 110/80 Blood Pressure Location Lt brachial Position Sitting Pulse 79 Pulse Source Pulse Oximeter Temp 97.9 F Temp Source Temporal Artery Scan Pulse Oximetry (%) 98 Oxygen Delivery Method Room Air Intake Visit Reasons: EST/stomach pains (lobby) Intake Note: pt ia here today for stomach pains started 2 days ago Patient Tobacco Use Status: Never used Tobacco Allergies No Known Allergies Allergy (Verified 03/28/24 14:31) Do you need a note to return to daycare/school/sports/work: No HPI HPI Comments History of Present Illness Details 29 y/o female patient who presents to [facility] in clinic with c/o urinary symptoms associated with vaginal discharge and itching. Had un-protected intercourse with BF and she took Plan B after that. [facility] Medical History Vaginal odor Late menses COVID-19 Surgical History No pertinent past surgical history Family History Maternal Aunt Breast [place] Social History Housing: Apartment Alcohol intake: never Patient Tobacco Use Status: Never used Tobacco e-Cigarette/Vaping Use: Never Used Second Hand Smoke Exposure: No service: No Current occupational status: employed Current occupational exposures/hazards: No Cognitive needs: No Hearing needs: No Vision needs: No Female Reproductive History Menstrual Age of Menarche: 13 Review of Systems Const All systems reviewed & are unremarkable except as noted in HPI and below Physical Exam Vital Signs: Last Vital Signs Temp 97.9 F 03/28/24 14:25 Pulse 79 03/28/24 14:25 BP 110/80 03/28/24 14:25 Pulse Ox 98 03/28/24 14:25 Oxygen Delivery Method Room Air 03/28/24 14:25 BMI result Body Mass Index 35.0 Const General: comfortable and no acute distress Nutritional Appearance: obese Orientation/consciousness: patient oriented x3 GI Inspection: Yes obesity Palpation (GI): Soft to palpation, not firm, nontender, no guarding and not rigid Auscultation: normal bowel sounds General: Yes no CVA tenderness External Female Exam: normal external appearance, erythema, externally tender and No urethral discharge Speculum Exam - Vagina: abnormal vaginal discharge white, malodorous and frothy, erythematous, no lesions and No vaginal bleeding Speculum Exam - Cervix: Cervical os open and nontender Bimanual exam- vagina & uterus: No Cervical tenderness present OB/external & speculum: Cervical os open; No vaginal bleeding Back/Spine/Pelvis Back: no CVA tenderness Neuro General: patient oriented x3, gait normal and moves all extremities Psych Speech and movement: Normal speech and movement present Results AMB Urinalysis, Automated UA Leukoctes 0 Christian/uL Last Edit by Ray Mcneil CMA on 03/28/24 14:56 UA Nitrite Negative Last Edit by Ray Mcneil CMA on 03/28/24 14:56 UA Urobilinogen 0.2 mg/dL Last Edit by Ray Mcneil CMA on 03/28/24 14 :56 UA Protein 15 mg/dL Last Edit by Ray Mcneil CMA on 03/28/24 14:56 UA pH 8.0 Last Edit by Ray Mcneil CMA on 03/28/24 14:56 UA Blood 0 Raymundo/uL Last Edit by Ray Mcneil CMA on 03/28/24 14:56 UA Specific [place] 1.015 Last Edit by Ray Mcneil CMA on 03/28/24 14:56 UA Ketone Negative Last Edit by Ray Mcneil CMA on 03/28/24 14:56 UA Bilirubin 0 mg/dL Last Edit by Ray Mcneil CMA on 03/28/24 14:56 UA Glucose 0 mg/dL Last Edit by Ray Mcneil CMA on 03/28/24 14:56 AMB Test Urine AMB Test Urine Negative Last Edit by Ray Mcneil CMA on 03/28/24 14:58 Results Reviewed Results Reviewed: Laboratory Last Values Urine pH (Auto) 8.0 03/28/24 14:55 Specific [place] (Auto) 1.015 03/28/24 14:55 Urine Protein (Auto) 15 mg/dL 03/28/24 14:55 Glucose (UA)(Auto) 0 mg/dL 03/28/24 14:55 Urine Ketones (Auto) Negative 03/28/24 14:55 Urine Blood (Auto) 0 Raymundo/uL 03/28/24 14:55 Urine Nitrite (Auto) Negative 03/28/24 14:55 Urine Bilirubin (Auto) 0 mg/dL 03/28/24 14:55 Urine Urobilinogen (Auto) 0.2 mg/dL 03/28/24 14:55 Leukocyte Esterase (Auto) 0 Christian/uL 03/28/24 14:55 Tst Clinic Negative 03/28/24 14:57 Assessment & Plan Assessment & Plan (1) Vaginitis and vulvovaginitis: Code(s): N76.0 - Acute vaginitis Plan: Wipe from front to back after using the bathroom, change liners, pads, or tampons often, and avoid scented or deodorizing vaginal products Void before and after intercourse Shower after intercourse No douching (2) Screening examination for STI: Code(s): Z11.3 - Encounter for screening for infections with a predominantly sexual mode of transmission Plan: Practice safe sex Same one partner Condoms, latex Orders: Orders Bacterial Vaginosis Panel Today N76.0 - Acute vaginitis, Z11.3 - Encounter for screening for infections with a predominantly sexual mode of transmission AMB Urinalysis Automated Today Z13.9 - Encounter for screening, unspecified CT NG by PCR Today N76.0 - Acute vaginitis, Z11.3 - Encounter for screening for infections with a predominantly sexual mode of transmission AMB HCG Urine Test Today Z13.9 - Encounter for screening, unspecified Medications: New metronidazole 500 mg PO BID 7 days 14 tabs 0RF N76.0 - Acute vaginitis, Z11.3 - Encounter for screening for infections with a predominantly sexual mode of transmission terconazole 80 mg vaginal BEDTIME 3 days 3 ea 2RF N76.0 - Acute vaginitis Coding Level of Care Code Est Pt Level 4 (99617) Diagnoses Vaginitis and vulvovaginitis N76.0 Screening examination for STI Z11.3 Time Spent (min) 20
== END 2024-03-28 16:34 | disposition home or self-care (01) ==
PROVIDERS: PCP Nurse Practitioner Family; Visit Provider Nurse Practitioner Family
DX: N76.0 Acute vaginitis (principal); Z11.3 Encounter for screening for infections with a predominantly sexual mode of transmission; Z32.02 Encounter for pregnancy test, result negative
CPT/HCPCS: 81003; 81025; 99214

== ENCOUNTER 2024-03-28 14:46 | Outpatient (REF) | payer OTHER, SELFPAY ==
[2024-03-28 18:14] LABS: Bacterial Vaginosis PCR NEGATIVE (Negative); Candida Group PCR DETECTED (Not Detect); Candida glab krusei PCR NOT DETECTED (Not Detect); Trichomonas vaginalis PCR NOT DETECTED (Not Detect)
[2024-03-28 18:47] LABS: CT PCR NOT DETECTED (Not Detect.); NG PCR NOT DETECTED (Not Detect.)
== END 2024-03-28 14:47 | disposition home or self-care (01) ==
LOC: HO.LAB 14:46
PROVIDERS: Visit Provider Nurse Practitioner Family
DX: N76.0 Acute vaginitis (principal); Z11.3 Encounter for screening for infections with a predominantly sexual mode of transmission
CPT/HCPCS: 0352U; 0353U

== ENCOUNTER 2024-06-10 14:45 | Outpatient (AMB) | payer OTHER, SELFPAY ==
--- NOTE | 2024-06-10 15:30 | AM.OFFWIN_ITS ---
Intake Vital Signs 06/10/24 15:33 Height 5 ft 4 in Weight 202 lb BMI 34.7 BP 116/80 Blood Pressure Location Lt brachial Position Sitting Pulse 66 Pulse Source Pulse Oximeter Temp 98.5 F Temp Source Oral Pulse Oximetry (%) 99 Oxygen Delivery Method Room Air Intake Visit Reasons: chest pressure 2 weeks, heart racing Intake Note: pt c/o chest pressure and heart racing x 2 weeks Patient Tobacco Use Status: Never used Tobacco Allergies No Known Allergies Allergy (Verified 06/10/24 15:32) Do you need a note to return to daycare/school/sports/work: No HPI chest pressure 2 weeks, heart racing HPI Details This note is constructed using voice recognition software. While every effort has been made to ensure accuracy, marble carver errors may have been included. The patient is a 29 year old female who presents to the clinic today with palpitations for the past 2 weeks. She denies chest pain, reports shortness of breath when the heart is racing. She does feel some increased anxiety with stress of work. She denies fever, chills, cough. COUNT INCLUDES THE [facility] Medical History Vaginal odor Late menses COVID-19 Surgical History No pertinent past surgical history Family History Maternal Aunt Breast CA Social History Housing: Apartment Alcohol intake: never Patient Tobacco Use Status: Never used Tobacco e-Cigarette/Vaping Use: Never Used Second Hand Smoke Exposure: No service: No Current occupational status: employed Current occupational exposures/hazards: No Cognitive needs: No Hearing needs: No Vision needs: No Female Reproductive History Menstrual Age of Menarche: 13 Review of Systems Const All systems reviewed & are unremarkable except as noted in HPI and below Physical Exam Vital Signs: Last Vital Signs Temp 98.5 F 06/10/24 15:33 Pulse 66 06/10/24 15:33 BP 116/80 06/10/24 15:33 Pulse Ox 99 06/10/24 15:33 Oxygen Delivery Method Room Air 06/10/24 15:33 BMI result Body Mass Index 34.7 Const General: cooperative, healthy appearing, comfortable, no acute distress and alert Orientation/consciousness: patient oriented x3 Limitations: no limitations HEENT Head: Yes normal to inspection and Yes normocephalic Ears: hearing grossly normal bilaterally General nose exam: Normal external nose present Face and sinus: Yes normal facial exam and Yes sinuses nontender Mouth: Normal oral and palatal mucosa present and tongue normal Teeth and gingiva: dentition normal Throat: Yes posterior oropharynx normal Eyes General: appearance normal, both eyes and all related structures Neck Neck: Yes normal visual inspection, Yes full ROM and Yes no lymphadenopathy Resp Effort & Inspection: normal respiratory effort and able to speak in complete sentences Auscultation: clear to auscultation bilaterally Cardio Jugular venous distension: no JVD Palpation: normal PMI Rate: regular rate Heart sounds: S1 normal heart sound present, S2 normal heart sound present, no click, no gallops, no murmurs and no rubs GI Inspection: Yes normal to inspection Palpation (GI): Soft to palpation and nontender Percussion: Yes normal to percussion Auscultation: normal bowel sounds Skin General skin exam: no rashes or lesions noted, elasticity normal and turgor normal Neuro General: patient oriented x3 Extrem General: Yes normal to inspection, Yes full ROM, Yes capillary refill normal and Yes normal exam except as noted Psych Appearance: grossly normal Mental Status: mental status grossly normal Speech and movement: Normal speech and movement present Affect: normal affect Assessment & Plan Assessment & Plan (1) Palpitations: Code(s): R00.2 - Palpitations Plan: In office EKG appears to be normal sinus rhythm. Chest x-ray ordered given complaints of shortness of breath with symptoms. Additionally we will order labs to contributing factors. Advised patient to follow up with PCP with ongoing or worsening and 4 lab results. Fortunately she has a reassuring examination today, so we discussed ER with symptoms that do not stop. Plan See above for full details and plan. Orders: Orders XR chest 2V Today R00.2 - Palpitations TSH reflex Free T4 Today R00.2 - Palpitations Basic Metabolic Panel Today R00.2 - Palpitations AMB EKG-In Office Today R00.2 - Palpitations Complete Blood Count Auto Diff Today R00.2 - Palpitations Coding Level of Care Code Est Pt Level 4 (19415) Diagnoses Palpitations R00.2
[2024-06-10 15:33] VITALS: BP 116/80; PULSE 66; TEMP 36.9; O2SAT 99; BMI 34.7
== END 2024-06-10 16:44 | disposition home or self-care (01) ==
PROVIDERS: PCP Nurse Practitioner Family; Visit Provider Registered Nurse
DX: R00.2 Palpitations (principal)
CPT/HCPCS: 99214

== ENCOUNTER 2024-06-10 16:07 | Outpatient (REF) | payer OTHER, SELFPAY ==
--- NOTE | ~2024-06-10 | XR_ITS ---
EXAMINATION: XR CHEST CLINICAL INFORMATION: Palpitations COMPARISON: Chest x-ray September 17, 2022 TECHNIQUE: 2 views of the chest were obtained. FINDINGS: No significant abnormality is noted involving the heart, lungs, mediastinum, bony thorax or soft tissues. XR/XR chest 2V IMPRESSION: Unremarkable examination.
== END 2024-06-10 16:08 | disposition home or self-care (01) ==
LOC: HO.HMGCX 16:07
PROVIDERS: PCP Nurse Practitioner Family; Visit Provider Registered Nurse
DX: R00.2 Palpitations (principal)
CPT/HCPCS: 71046

== ENCOUNTER 2024-06-17 07:28 | Outpatient (REF) | payer OTHER, SELFPAY ==
[2024-06-17 07:40] LABS: MANUAL DIFF FLAG NO
[2024-06-17 08:21] LABS: Basophils Percent Auto 0.2 % (0-2); Eosinophils Absolute Auto 0.2 X10*3/uL (0.0-0.4); Eosinophils Percent Auto 1.9 % (0-4); Hematocrit 40.8 % (37.0-47.0); Hemoglobin 14.3 g/dl (12.0-16.0); Imm Gran Abs Auto 0.03 X10*3/uL (0.00-0.03); Imm Gran Pct Auto 0.3 % (0.0-0.4); Lymphocytes Absolute Auto 3.3 X10*3/uL (1.2-4.9); Lymphocytes Percent Auto 37.4 % (20-40); Mean Corpuscular Hemoglobin 30.5 pg (27.0-33.0); Mean Platelet Volume 9.7 fL (9.4-12.3); Monocytes Absolute Auto 0.5 X10*3/uL (0.1-1.2); Monocytes Percent Auto 5.7 % (2-11); Neutrophils Absolute Auto 4.8 x10*3/uL (2.0-8.3); Neutrophils Percent Auto 54.5 % (45-73); Platelet Count 350 X10*3/uL (160-400); Red Blood Count 4.69 X10*6/uL (4.20-5.50); Red Cell Distribution Width 13.4 % (11.0-16.0); White Blood Count 8.8 X10*3/uL (4.8-10.8)
[2024-06-17 09:37] LABS: Anion Gap 15 (12-20); Blood Urea Nitrogen 10 mg/dL (9-16); Calcium 9.9 mg/dL (8.4-10.2); Carbon Dioxide 21 mmol/L (22-29); Chloride 106 mmol/L (96-108); Estimated Glomerular Filt Rate > 60; Glucose Random 103 mg/dL (60-115); Potassium 4.4 mmol/L (3.3-5.1); Sodium 138 mmol/L (135-145)
[2024-06-17 09:50] LABS: TSH reflex Free T4 1.18 uIU/mL (0.32-4.0)
== END 2024-06-17 07:29 | disposition home or self-care (01) ==
LOC: HO.LAB 07:28
PROVIDERS: PCP Nurse Practitioner Family; Visit Provider Registered Nurse
DX: R00.2 Palpitations (principal)
CPT/HCPCS: 36415; 80048; 84443; 85025

== ENCOUNTER 2024-08-03 07:48 | Emergency (ER) | payer OTHER, SELFPAY ==
[2024-08-03 07:55] VITALS: BP 126/51; PULSE 73; RESP 16; TEMP 36.6; O2SAT 98; BMI 33.5
[2024-08-03 08:24] VITALS: BP 115/57; PULSE 75; RESP 16; TEMP 36.8; O2SAT 99
--- NOTE | 2024-08-03 08:33 | ED_ITS ---
HPI - General Adult General Chief complaint: Allergic Reaction Stated complaint: eye issue allergic reaction Time Seen by Provider: 08/03/24 08:09 Source: patient Mode of arrival: ambulatory Limitations: no limitations History of Present Illness HPI narrative: Patient is a 29-year-old female who presents emergency department for evaluation of concern for possible allergic reaction. She reports that she had new eyelash extensions placed yesterday, reports she has been having these placed for approximately 5 years now. She denies having a new industrial engineering technician, or reports of new adhesive being used. She states that she awoke this morning feeling as though she was unable to open her eyes due to pain and a sensation of swelling and burning, she has excessive tearing of her eyes. Her right eye is worse than her left. There is some slight redness noted to the skin surrounding her eyes. She has an appointment with her industrial engineering technician later today for removal of the lashes. She denies any associated shortness of breath, difficulty breathing, nasal congestion or recent URI symptoms/allergic rhinitis symptoms. Endorses no fevers or chills. No associated trauma to the eye by her account. Related Data Previous Rx's ?Medication ?Instructions ?Recorded cetirizine 10 mg tablet (All Day 10 mg PO DAILY PRN allergy 07/13/23 Allergy (cetirizine)) symptoms 90 days #90 tabs ofloxacin 0.3 % eye drops 2 drp ophthalmic (eye) QID 5 days 08/03/24 #5 mL Allergies Allergy/AdvReac Type Severity Reaction Status Date / Time No Known Allergies Allergy Verified 08/03/24 07:58 Review of Systems Review of Systems: Yes all other systems are reviewed and are negative [facility] Past Medical History Attestation statement: The following information was validated with the patient. Source: old records reviewed Medical History Vaginal odor Late menses COVID-19 Surgical History No pertinent past surgical history Family History Family History Maternal Aunt Breast CA Social History Social History Housing: Apartment Alcohol intake: never Patient Tobacco Use Status: Never used Tobacco Smoked in Last 30 Days: No e-Cigarette/Vaping Use: Never Used Second Hand Smoke Exposure: No Use of substances other than those prescribed or required for medical reasons: No Advance Directives: No Advance Directives Information Provided: Yes Do you have a plan to hurt others: No Plan Patient : No service: No Current occupational status: employed Current occupational exposures/hazards: No Cognitive needs: No Hearing needs: No Vision needs: No Physical Exam ED Vital Signs: Vital Signs - 24 hr 08/03/24 07:55 08/03/24 08:24 Temperature 98 F 98.3 F Pulse Rate 73 75 Respiratory Rate 16 16 Blood Pressure 126/51 L 115/57 L Pulse Oximetry 98 99 Oxygen Delivery Method Room Air Room Air BMI result Body Mass Index 33.5 Appearance: Alert.?Oriented to person, place and time. No acute distress.?Normal affect. Eyes: Pupils equal, round and reactive to light. EOMI.? Sclera injected bilaterally, mild conjunctival erythema, excessive tearing. There is mild erythema of the periorbital region bilaterally but no overt swelling. ENT: Pharynx normal.?? Neck: Normal inspection.? Neck supple.? No cervical adenopathy? CVS: Heart sounds normal. Normal heart rate and rhythm.? Pulses normal.?? Respiratory: No respiratory distress.? Lung sounds clear to auscultation bilaterally?? Skin: Skin warm and dry.? Normal skin color.? Neuro: Moves all extremities spontaneously. Sensation intact bilaterally. Ambulates with normal steady gait. Medications Administered Discontinued Medications Generic Name Dose Route Start Last Admin Trade Name Suresh PRN Reason Stop Dose Admin Diphenhydramine HCl 25 mg 08/03/24 09:08 08/03/24 09:16 Diphenhydramine Hcl 50 Mg/Ml Vial IM 08/03/24 09:09 25 mg ONCE ONE Administration Fluorescein Sodium 1 strip 08/03/24 09:08 08/03/24 09:16 Fluorescein Sodium Strip EYE-BOTH 08/03/24 09:09 1 strip ONCE ONE Administration Tetracaine HCl 1 drop 08/03/24 09:08 08/03/24 09:16 Tetracaine Hcl/Pf 0.5% Oph Colleen 4 Ml Drops EYE-BOTH 08/03/24 09:09 1 drop ONCE ONE Administration Medical Decision Making Medical Decision Making [facility] Narrative: Patient is a 29-year-old female presents emergency department for evaluation of concern for allergic reaction after receiving lash extensions yesterday, ice feeling subjectively swollen, burning sensation an excessive tearing as per HPI. She appears uncomfortable, but without signs of systemic toxicity. Patient received Benadryl IM, and planning for fluorescein examination visual acuity. - fluorescein uptake bilaterally on examination, right eye at 05:00 o'clock- 08:00 o'clock, approximate 1 cm X 0.5 cm abrasion, similarly located to the left eye fluorescein uptake, smaller and presentation, 0.5 cm X 0.25 cm. Discussed treatment with patient, uncertain etiology of the corneal abrasion but it may be secondary to Process of the application of her lash extensions, the eyelids themselves do not appear notably erythematous or swollen, symptoms may entirely be secondary to the corneal abrasion rather than a reaction to the lash adhesive used. This is discussed with patient at length. Advised outpatient follow-up with Ophthalmology, worrisome signs and symptoms that would warrant re-evaluation. All questions answered. Stable for discharge Differential Diagnosis Differential Diagnoses: The differential diagnosis associated with the presentation includes Periorbital cellulitis, lower suspicion for orbital cellulitis given EOMI, no pain with movement of the eyes, lower suspicion for glaucoma given history and physical examination, unfortunately Joseluis-Pen is unavailable. Possible allergic reaction to lash extensions, allergic conjunctivitis, lower suspicion for bacter ial conjunctivitis. Possible corneal abrasion External Record Review External record reviewed: Outpatient record Tests considered The following testing was considered but not selected: CT orbits considered, ultimately was deferred, low clinical suspicion for orbital cellulitis Prescription Management I considered prescription management with: Pain Medication and Antibiotic (See narrative above) Discharge Plan Discharge Clinical Impression: Corneal abrasion of both eyes Instructions: Corneal Abrasion (ED) Additional Instructions: You received Benadryl in the emergency department which did help some of your symptoms, may consider the use of oral Benadryl at home though this may make you drowsy, if you rather not have the side effect you may take a non sedating allergy medication during the day such as Claritin or Zyrtec. A prescription for antibiotic eyedrops were sent to your pharmacy for treatment of the corneal abrasions as discussed. Please contact the illuminating engineer office 1st thing next week to arrange for a follow-up appointment. You may return back to emergency department any new or worsening symptoms or concerns. Additionally, consider applying cool compresses over both of the eyes, reassuringly the eyelids themselves do not appear significantly inflamed or irritated, it is possible this may be a mild reaction to the lash adhesive as discussed, if this continues to progress I would advise having the lashes removed. Likely the abrasion was sustained from some part of the application pr ocess or subsequently rubbing of the eyes due to the excessive tearing and symptoms you are experiencing. Prescriptions: New ofloxacin 0.3 % drops 2 drp ophthalmic (eye) QID 5 Days Qty: 5 0RF No Action cetirizine [All Day Allergy (cetirizine)] 10 mg tablet 10 mg PO DAILY PRN (Reason: allergy symptoms) 90 Days Qty: 90 0RF Referrals: Shravan Funes FNP-SOL [Primary Care Provider] - Alberto Rivera [Physician] - Print Language: Tajik
[2024-08-03] MEDS: diphenhydrAMINE HCL 50 MG/ML VIAL 25 MG IM (09:16)
[2024-08-03] MEDS: Tetracaine HCl/PF 0.5% Oph Sol 4 ML DROPS 1 DROP EYE-BOTH (09:16)
[2024-08-03] MEDS: Fluorescein Sodium STRIP 1 STRIP EYE-BOTH (09:16)
[2024-08-03 12:07] VITALS: BP 104/54; PULSE 79; RESP 16; TEMP 36.7; O2SAT 95
[2024-08-03 12:16] VITALS: BP 104/54; PULSE 79; RESP 16; TEMP 36.7; O2SAT 95
== END 2024-08-03 12:17 | disposition home or self-care (01) ==
PROVIDERS: Emergency Provider Emergency Medicine Emergency Medical Services; PCP Nurse Practitioner Family
DX: S05.02XA Injury of conjunctiva and corneal abrasion without foreign body, left eye, initial encounter (principal); S05.01XA Injury of conjunctiva and corneal abrasion without foreign body, right eye, initial encounter; X58.XXXA Exposure to other specified factors, initial encounter; Y93.9 Activity, unspecified; Y92.9 Unspecified place or not applicable; Y99.9 Unspecified external cause status; H57.89 Other specified disorders of eye and adnexa
CPT/HCPCS: 96372; 99283; 99284; J1200

== ENCOUNTER 2025-01-09 11:23 | Outpatient (REF) | payer OTHER, SELFPAY ==
[2025-01-09 13:05] LABS: Appearance Urine Clear; Color Urine Yellow; Glucose Urine UA Negative (Negative); Leukocyte Esterase Urine Negative (Negative); Nitrite Urine Negative (Negative); Specific Gravity - Urine 1.025 (1.005-1.025); Urine Blood Negative (Negative); Urine Ketones Negative (Negative); Urine Protein Negative (Neg-Trace)
[2025-01-09 13:32] LABS: MANUAL DIFF FLAG NO
[2025-01-09 13:38] LABS: Basophils Percent Auto 0.3 % (0-2); Eosinophils Absolute Auto 0.1 X10*3/uL (0.0-0.4); Eosinophils Percent Auto 1.2 % (0-4); Hematocrit 39.7 % (37.0-47.0); Hemoglobin 13.3 g/dl (12.0-16.0); Imm Gran Abs Auto 0.03 X10*3/uL (0.00-0.03); Imm Gran Pct Auto 0.4 % (0.0-0.4); Lymphocytes Absolute Auto 2.3 X10*3/uL (1.2-4.9); Lymphocytes Percent Auto 29.3 % (20-40); Mean Corpuscular HGB Conc 33.5 g/dl (31.0-35.0); Mean Corpuscular Hemoglobin 29.2 pg (27.0-33.0); Mean Corpuscular Volume 87.3 fL (80.0-98.0); Monocytes Absolute Auto 0.4 X10*3/uL (0.1-1.2); Monocytes Percent Auto 5.7 % (2-11); Neutrophils Absolute Auto 4.9 x10*3/uL (2.0-8.3); Neutrophils Percent Auto 63.1 % (45-73); Platelet Count 316 X10*3/uL (160-400); Red Blood Count 4.55 X10*6/uL (4.20-5.50); Red Cell Distribution Width 13.3 % (11.0-16.0); White Blood Count 7.7 X10*3/uL (4.8-10.8)
[2025-01-09 14:00] LABS: Alanine Aminotransferase 14 U/L (0-31); Albumin Level 4.2 g/dL (3.5-5.0); Alkaline Phosphatase 54 U/L (39-117); Anion Gap 11 (12-20); Aspartate Amino Transferase 21 U/L (5-31); Bilirubin Total 0.7 mg/dL (0.0-1.0); Blood Urea Nitrogen 9 mg/dL (9-16); Calcium 9.2 mg/dL (8.4-10.2); Carbon Dioxide 23 mmol/L (22-29); Chloride 108 mmol/L (96-108); Cholesterol 136 mg/dL (<200); Estimated Glomerular Filt Rate > 60; Glucose Fasting 89 mg/dL (60-99); HDL Cholesterol 46 mg/dL (>40); LDL Cholesterol Calculated 80 mg/dL (<100); Potassium 4.2 mmol/L (3.3-5.1); Sodium 138 mmol/L (135-145); Total Protein 7.4 g/dL (6.5-8.0); Triglycerides 53 mg/dL (<150)
--- OUTSIDE RECORDS SUMMARY | 2025-01-09 14:00 | XMS_ITS | Clinical Summary ---
Author Organization [address] Address [address] [place] [address] Phone Care Team Providers Care Cash Register Servicer Name Role Phone Matt Adame MD Primary Care Provider [phone] Social History Tobacco Use Types Packs/Day Years Used Date Smoking Tobacco: Never Assessed Comments Unknown Sex and Gender Information Value Date Recorded Sex Assigned at Not on file Legal Sex Female 9:51 AM EST Gender Identity Not on file Sexual Orientation Not on file Plan of Treatment Upcoming Encounters Date Type Department Care Team (Late st Contact Info) Description 01/24/2025 10:30 AM EDT Office Visit Obstetrics and Gynecology - [address] [phone] Candice Crisostomo [address] Health Maintenance Due Date Last Done Comments DTaP,Tdap,and Td Vaccines (1 - Tdap) 02/21/2015 Hepatitis B Vaccines (1 of 3 - 19+ 3-dose series) 02/21/2015 Cervical Cancer Screening: P ap Smear 02/21/2017 COVID-19 Vaccine ( - 2023-2 5 season) 2024 Influenza Vaccine (#1) 2024 Depression Screening 09/26/2024 HIV Screening 09/26/2024 Hepatitis C Screening 09/26/2024 Social Influencers of Health Screening 09/26/2024 HIB Vaccines Aged Out No longer eligi ble based on patient's age to complete this topic HPV Vaccines Aged Out No longer eligi ble based on patient's age to complete this topic Hepatitis A Vaccines Aged Out No long er eligible based on patient's age to complete this topic IPV Vaccines Aged Out No longer eligi ble based on patient's age to complete this topic MMR Vaccines Aged Out No longer eligi ble based on patient's age to complete this topic Meningococcal ACWY Vaccine Aged Out N o longer eligible based on patient's age to complete this topic Meningococcal B Vacine Aged Out No lo nger eligible based on patient's age to complete this topic Pneumococcal Vaccine: Pediat rics (0 to 5 Years) and At-Risk Patients (6 to 64 Years) Aged Out No longer eligible b ased on patient's age to complete this topic RSV Immunization Patients Un jovita 20 months Aged Out No longer eligible b ased on patient's age to complete this topic Varicella Vaccines Aged Out No longer eligible based on patient's age to complete this topic Insurance [facility] Care Teams Cash Register Servicer Relationship Specialty Start Date End Date Matt Adame MD [facility] [address] [place] [address] [address] [place] [id number] PCP - General Internal Medicine 09/26/24
[2025-01-09 14:14] LABS: TSH reflex Free T4 0.81 uIU/mL (0.32-4.0)
== END 2025-01-09 11:24 | disposition home or self-care (01) ==
LOC: HO.HMGCLDS 11:23
PROVIDERS: PCP Nurse Practitioner Family; Visit Provider Nurse Practitioner Family
DX: Z00.00 Encounter for general adult medical examination without abnormal findings (principal); Z13.6 Encounter for screening for cardiovascular disorders
CPT/HCPCS: 36415; 80053; 80061; 81003; 84443; 85025

== ENCOUNTER 2025-01-14 08:09 | Outpatient (AMB) | payer OTHER, SELFPAY ==
[2025-01-14 08:14] VITALS: BP 106/72; PULSE 67; O2SAT 98; BMI 33.1
--- NOTE | 2025-01-14 08:14 | MHC.PC.OV ---
Vital Signs 01/14/25 08:14 Height 5 ft 4 in Weight 193 lb BMI 33.1 BP 106/72 Blood Pressure Location Lt brachial Position Sitting Pulse 67 Pulse Source Pulse Oximeter Pulse Oximetry (%) 98 Oxygen Delivery Method Room Air Intake Visit Reasons: ANNUAL EXAM Intake Note: pt is here for annual exam Editor Trade Journal Required: No Accompanied by: Self / Same As Patient Allergies No Known Allergies Allergy (Verified 01/14/25 08:15) Medication List - Last Reconciled 01/14/25 by MARYLOU Leija-SOL adapalene 0.1% appl topical QAM cetirizine (All Day Allergy (cetirizine)) 10 mg PO DAILY PRN 90 days meloxicam 15 mg PO DAILY PRN tretinoin 0.05% appl topical Tobacco use date assessed: 01/14/25 Dental Screening Dental Screen Date: 01/14/25 Did you have a dental visit in the last 12 months?: Yes Did you have a dental problem in the last 6 months where you did not have access to dental care?: No Was dental information given to patient?: Patient has dentist HPI ANNUAL EXAM HPI Details History of Present Illness The patient is a 29-year-old female presenting with sciatica, which manifests notably during her menstruation. She identifies this correlation with her menstrual cycle? The patient denies experiencing chest pain, shortness of breath, or any changes in bowel habits that may be related. Details regarding initial onset were not provided. She reports ongoing experience of sciatica pain without suicidal or homicidal ideations. Previously suggested interventions include stretching routines. Health Maintenance Social History Review of Systems - Musculoskeletal: Reports sciatica, particularly exacerbated during menstruation. - Neurological: Denies suicidal ideation or homicidal ideation. - Cardiovascular: Denies chest pain. - Respiratory: Denies shortness of breath. - Gastrointestinal: Denies changes in bowel habits such as ongoing abdominal pain, bloating, constipation, diarrhea. Physical Exam General: Cooperative, healthy appearing, comfortable, no acute distress and well developed, obese Orientation: Patient oriented x3 Limitations: No limitations Head: Normal to inspection Ears: Hearing grossly normal bilaterally Nose: Normal external nose present Face and sinus: Normal facial exam Eyes: Appearance normal, both eyes and all related structures Neck: Normal visual inspection and Yes full ROM Respiratory: Normal respiratory effort and able to speak in complete sentences. Clear to auscultation bilaterally Cardiovascular: Regular rate and rhythm. Normal S1 and S2 GI: Normal to inspection. Soft to palpation and nontender Skin: No rashes or lesions noted Neuro: Patient oriented x3 Extremities: Normal to inspection, reports sciatica, straight leg test positive on the left Results Plan To address the sciatica, meloxicam will be administered on an as-needed basis. A stretching routine is to be incorporated to provide adjunctive support in alleviating symptomatic discomfort associated with sciatica. I instructed the patient to monitor for any exacerbation of symptoms, with follow-up advised if the condition worsens or persists. Discussion Notes I discussed with the patient her symptomatic experience of sciatica, particularly its occurrence during menstruation. We reviewed treatment options, including pharmacologic therapy with meloxicam and non-pharmacologic management through stretching exercises. I advised the patient on the dosages of meloxicam to be taken as needed and explained the importance of the stretching routine. The patient was informed about the need to return for evaluation if symptoms escalate or do not improve, ensuring understanding of all management strategies discussed. Patient Instructions - Take meloxicam as needed for sciatica pain. - Begin a consistent stretching routine to improve flexibility and reduce discomfort. - Monitor symptoms and contact me if sciatica worsens or persists. - Attend follow-up appointments as needed for further assessment and management. [facility] Medical History Vaginal odor Late menses COVID-19 Surgical History No pertinent past surgical history Family History Maternal Aunt Breast CA Social History Housing: Apartment Alcohol intake: never Patient Tobacco Use Status: Never used Tobacco e-Cigarette/Vaping Use: Never Used Second Hand Smoke Exposure: No service: No Current occupational status: employed Current occupational exposures/hazards: No Cognitive needs: No Hearing needs: No Vision needs: No Female Reproductive History Menstrual Age of Menarche: 13 Questionnaire PHQ-9 Over the last 2 weeks, how often have you been bothered by any of the following problems? 1. Little interest or pleasure in doing things: several days 2. Feeling down, depressed, or hopeless: not at all 3. Trouble falling or staying asleep, or sleeping too much: not at all 4. Feeling tired or having little energy: several days 5. Poor appetite or overeating: not at all 6. Feeling bad about yourself - or that you are a failure or have let yourself or your family down: several days 7. Trouble concentrating on things, such as reading the newspaper or watching television: several days 8. Moving or speaking so slowly that other people could have noticed. Or the opposite - being so fidgety or restless that you have been moving around a lot more than usual: not at all 9. Thoughts that you would be better off or of hurting yourself in some way: not at all Total score: 4 Depression Screening Interpretation: Negative Depression Screening Done: Yes 32941 - PHQ-9 Billing: Yes Source: Developed by Drs. Raudel Gerardo, Shonda Cross, Brent Richards and colleagues, with an educational janes from [employer]. Thrive Questionnaire Date Thrive assessed: 01/14/25 I am a: Patient What is your living situation today?: I have a steady place to live Within the past 12 months, did the food you bought not last and you didn't have the money to get more?: Never true Within the past 12 months, did you worry whether your food would run out before you got money to buy more?: Never true Do you have trouble paying for medicines?: No Do you have trouble getting transportation to medical appointments?: No Do you have trouble paying your heating and electricity bill?: No Do you have trouble taking care of your child, family member or friend?: No Do you have trouble with day-to-day activities such as bathing, preparing meals, shopping, managing finances, etc.?: No Are you currently unemployed and looking for a job?: No Are you interested in more education?: Yes Please select the resources that you would like help with: None Currently or been in a relationship where the following occur: No concerns reported THRIVE Score: 0 AUDIT C Alcohol Use Questionnaire (AUDIT-C) 1. How often do you have a drink containing alcohol?: Never 3. How often do you have six or more drinks on one occasion?: Never Total Score: 0 Score Reviewed/Action Taken: Yes WILL-7 AMB Questionnaire WILL-7 Date WILL - 7 assessed: 01/14/25 Feeling nervous, anxious, or on edge: 1 = Several days Not being able to stop or control worryin = Several days Worrying too much about different things: 1 = Several days Trouble relaxin = Several days Being so restless that it is hard to sit still: 1 = Several days Becoming easily annoyed or irritable: 1 = Several days Feeling afraid as if something awful might happen: 0 = Not at all Total WILL-7 score (0-4 normal; 5-9 mild; 10-14 moderate; 15-21 severe): 6 Source: Developed by Drs. Raudel Gerardo, Shonda Cross, Brent Richards and colleagues, with an educational janes from [employer]. WILL-7 Assessment Billing WILL-7 Assessment Tool: WILL-7 Assessment 40509 Physical exam (Primary Care) Vital Signs: Last Vital Signs Pulse 67 01/14/25 08:14 BP 106/72 01/14/25 08:14 Pulse Ox 98 01/14/25 08:14 Oxygen Delivery Method Room Air 01/14/25 08:14 BMI result Body Mass Index 33.1 Tobacco/Smoking Status: Tobacco use Status Tobacco use date assessed 01/14/25 01/14/25 08:15 Patient Tobacco Use Status Never used Tobacco 01/14/25 08:15 e-Cigarette/Vaping Use Never Used 01/14/25 08:15 PHQ-9: PHQ-9 Score PHQ-9: Total score 4 01/14/25 08:15 Depression Screening Interpretation: Negative Thrive Assessment: Date of Thrive Assessment Date Thrive assessed 01/14/25 01/14/25 08:15 Currently or been in a relationship where the following occur: No concerns reported Coding Level of Care Code Est Pt Prev Care 18-39y(73980) Diagnoses Encounter for routine adult physical exam with abnormal findings Z00.01 Sciatica M54.30 Additional Codes WILL-7 Assessment Billing - WILL-7 Assessment Tool: WILL-7 Assessment [id number] ([id number]) PHQ-9 - 62264 - PHQ-9 Billing: Yes ([id number]) Assessment & Plan Assessment & Plan (1) Encounter for routine adult physical exam with abnormal findings: Code(s): Z00.01 - Encounter for general adult medical examination with abnormal findings Category: Medical (2) Sciatica: Code(s): M54.30 - Sciatica, unspecified side Category: Medical Plan . Medications: New meloxicam 15 mg PO DAILY PRN 30 tabs 0RF sciatica
--- OUTSIDE RECORDS SUMMARY | 2025-01-14 08:37 | XMS_ITS | Clinical Summary ---
Author Organization [address] Address [address] [place] [address] Phone Care Team Providers Care Ssis Developer Name Role Phone Matt Adame MD Primary Care Provider [phone]- [phone] Social History Tobacco Use Types Packs/Day Years [...] EDT Office Visit Obstetrics and Gynecology - [address] [phone] Candice Crisostomo [address] Health Maintenance Due Date Last Done [...] patient's age to complete this topic Insurance [facility] Care Teams Ssis Developer Relationship Specialty Start Date End Date Matt Adame MD [facility] [address] [place] [address] [address] [place] [id number] PCP - General Internal Medicine 09/26/24
== END 2025-01-14 09:08 | disposition home or self-care (01) ==
LOC: HO.HMCC 08:10
PROVIDERS: PCP Nurse Practitioner Family; Visit Provider Nurse Practitioner Family
DX: Z00.01 Encounter for general adult medical examination with abnormal findings (principal); M54.30 Sciatica, unspecified side

== ENCOUNTER → 2025-01-14 08:09 | Outpatient (BNVA) | payer OTHER, SELFPAY | PROVIDERS: PCP Nurse Practitioner Family; Visit Provider Nurse Practitioner Family | DX: Z00.01 Encounter for general adult medical examination with abnormal findings (principal); M54.30 Sciatica, unspecified side | CPT/HCPCS: 96127 ==

== ENCOUNTER 2025-01-17 08:55 | Outpatient (AMB) | payer OTHER, SELFPAY ==
--- NOTE | 2025-01-17 09:01 | MHC.OFFWIV ---
Intake Vital Signs 01/17/25 09:03 Height 5 ft 4 in Weight 198 lb BMI 34.0 BP 110/78 Blood Pressure Location Rt brachial Position Sitting Pulse 78 Pulse Source Pulse Oximeter Pulse Oximetry (%) 98 Oxygen Delivery Method Room Air Intake Visit Reasons: EP Discomfort in the vagina Intake Note: Patient here for discomfort in the vaginal area, itching, had discharge a couple of days ago. Patient Tobacco Use Status: Never used Tobacco Allergies No Known Allergies Allergy (Verified 01/17/25 09:02) Do you need a note to return to daycare/school/sports/work: No HPI HPI Comments History of Present Illness Details Patient is a 29-year-old female complaining of 1 week of vaginal discharge and itching. She tells me that 7 days ago she started the Monistat [id number] medication and she feels like most of her symptoms of a yeast infection have gone away, such as the chunky white discharge. However she says she has some residual itching. She denies any fevers, blood in her urine, pain with urination, urinary changes or strong odors but states it does smell like popcorn. She states she has had bacterial vaginosis before and she wants to be checked to be sure she does not have that or residual yeast infection. [facility] Medical History Vaginal odor Late menses COVID-19 Surgical History No pertinent past surgical history Family History Maternal Aunt Breast CA Social History Housing: Apartment Alcohol intake: never Patient Tobacco Use Status: Never used Tobacco e-Cigarette/Vaping Use: Never Used Second Hand Smoke Exposure: No service: No Current occupational status: employed Current occupational exposures/hazards: No Cognitive needs: No Hearing needs: No Vision needs: No Female Reproductive History Menstrual Age of Menarche: 13 Review of Systems Const All systems reviewed & are unremarkable except as noted in HPI and below Physical Exam Vital Signs: Last Vital Signs Pulse 78 01/17/25 09:03 BP 110/78 01/17/25 09:03 Pulse Ox 98 01/17/25 09:03 Oxygen Delivery Method Room Air 01/17/25 09:03 BMI result Body Mass Index 34.0 Assessment & Plan Assessment & Plan (1) Vaginal pruritus: Code(s): N89.8 - Other specified noninflammatory disorders of vagina Plan: We will send bacterial vaginosis panel. Patient does have access to the portal and since today is Monday, if she does test positive for a yeast infection, to expedite treatment, I have sent Diflucan to her pharmacy which she can brick picker when she sees the results. If it is positive for bacterial vaginosis, I told her I would call her on Monday and sent a prescription at that time. Orders: Orders Bacterial Vaginosis Panel Today N89.8 - Other specified noninflammatory disorders of vagina Medications: New fluconazole may repeat second dose 72 hrs after first dose if symptoms persist 150 mg PO Q3D 2 tabs 0RF Coding Level of Care Code Est Pt Level 3 (06014) Diagnoses Vaginal pruritus N89.8
[2025-01-17 09:03] VITALS: BP 110/78; PULSE 78; O2SAT 98; BMI 34.0
--- OUTSIDE RECORDS SUMMARY | 2025-01-17 09:17 | XMS_ITS | Clinical Summary ---
Author Organization [address] Address [address] [place] [address] Phone Care Team Providers Care Paper Carrier Name Role Phone Matt Adame MD Primary Care Provider [phone]- [phone] Social History Tobacco Use Types Packs/Day Years [...] EDT Office Visit Obstetrics and Gynecology - [address] [phone] Candice Crsiostomo [address] Health Maintenance Due Date Last Done [...] patient's age to complete this topic Insurance [facility] Care Teams Paper Carrier Relationship Specialty Start Date End Date Matt Adame MD [facility] [address] [place] [address] [address] [place] [id number] PCP - General Internal Medicine 09/26/24
== END 2025-01-17 09:49 | disposition home or self-care (01) ==
PROVIDERS: PCP Nurse Practitioner Family; Visit Provider Physician Assistant
DX: N89.8 Other specified noninflammatory disorders of vagina (principal)

== ENCOUNTER 2025-01-17 08:55 | Outpatient (REF) | payer OTHER, SELFPAY ==
--- OUTSIDE RECORDS SUMMARY | 2025-01-17 10:01 | XMS_ITS | Clinical Summary ---
Author Organization [address] Address [address] [place] [address] Phone Care Team Providers Care Computer Compositor Name Role Phone Matt Adame MD Primary Care Provider [phone]- [phone] Social History Tobacco Use Types Packs/Day Years [...] EDT Office Visit Obstetrics and Gynecology - [address] [phone] Candice Crisostomo [address] Health Maintenance Due Date Last Done [...] patient's age to complete this topic Insurance [facility] Care Teams Computer Compositor Relationship Specialty Start Date End Date Matt Adame MD [facility] [address] [place] [address] [address] [place] [id number] PCP - General Internal Medicine 09/26/24
[2025-01-17 13:56] LABS: Bacterial Vaginosis PCR NEGATIVE (Negative); Candida Group PCR NOT DETECTED (Not Detect); Candida glab krusei PCR NOT DETECTED (Not Detect); Trichomonas vaginalis PCR NOT DETECTED (Not Detect)
== END 2025-01-17 08:56 | disposition home or self-care (01) ==
LOC: HO.LAB 08:55
PROVIDERS: Physician Assistant; PCP Nurse Practitioner Family
DX: N89.8 Other specified noninflammatory disorders of vagina (principal)
CPT/HCPCS: 81515

== ENCOUNTER 2025-08-08 15:32 | Outpatient (AMB) | payer OTHER, SELFPAY ==
--- NOTE | 2025-08-08 15:33 | AM.OFFWIN_ITS ---
Intake Vital Signs 08/08/25 15:37 Height 5 ft 4 in Weight 198 lb BMI 34.0 BP 92/62 Blood Pressure Location Lt brachial Position Sitting Respiration 16 Pulse 64 Pulse Source Pulse Oximeter Temp 97.9 F Temp Source Oral Pulse Oximetry (%) 99 Oxygen Delivery Method Room Air Intake Visit Reasons: EP Ribs/chest pain Intake Note: Pt is here today c/o mid back and bilateral rib pain: hurts when taking a deep breath: started today: Pt denies any trauma Patient Tobacco Use Status: Never used Tobacco Allergies No Known Allergies Allergy (Verified 08/08/25 15:34) HPI HPI Comments History of Present Illness Details This is a 30-year-old female with no stated past medical history presenting for evaluation of back pain that radiates to her anterior chest wall that started this morning. Patient denies any injury or trauma preceding the onset of her symptoms. Patient states that this has happened before, most recently when she had COVID in August 2024. Patient describes the pain is a squeezing sensation that is worse when she takes a deep breath. She denies israel ving any fevers, chills, cough, hemoptysis, shortness of breath, dysuria, urinary frequency or hematuria. Patient has taken Tylenol once today without relief of her symptoms. Of note, patient is not currently taking meloxicam which was previously prescribed for sciatic pain. [facility] Medical History Vaginal odor Late menses COVID-19 Surgical History No pertinent past surgical history Family History Maternal Aunt Breast [place] Social History Housing: Apartment Alcohol intake: never Patient Tobacco Use Status: Never used Tobacco e-Cigarette/Vaping Use: Never Used Second Hand Smoke Exposure: No service: No Current occupational status: employed Current occupational exposures/hazards: No Cognitive needs: No Hearing needs: No Vision needs: No Female Reproductive History Menstrual Age of Menarche: 13 Review of Systems Const All systems reviewed & are unremarkable except as noted in HPI and below Reports no additional complaints, Denies chills and Denies fever(s) Eyes Reports no additional complaints ENT Reports no additional complaints Card Denies chest pain, Denies chest pain at rest, Denies rapid heart rate and Denies lightheadedness Resp Reports no additional complaints, Denies cough, Denies hemoptysis and Reports other (pain with deep breath) GI Reports no additional complaints Musc Details: squeezing back pain radiating from left upper back to anterior chest wall that is worse with deep breath Skin/Breast Reports system reviewed and no additional complaints, except as documented Neuro Reports no additional complaints Psych Reports no additional complaints Physical Exam Vital Signs: Last Vital Signs Temp 97.9 F 08/08/25 15:37 Pulse 64 08/08/25 15:37 Resp 16 08/08/25 15:37 BP 92/62 08/08/25 15:37 Pulse Ox 99 08/08/25 15:37 Oxygen Delivery Method Room Air 08/08/25 15:37 BMI result Body Mass Index 34.0 Const General: cooperative, healthy appearing, comfortable, no acute distress, well developed, alert, awake and Physically active; No diaphoretic, ill appearing or lethargic Nutritional Appearance: overweight Orientation/consciousness: patient oriented x3 and No lethargic Limitations: no limitations Chest Chest palpation & inspection: normal inspection of the chest and normal palpation of entire chest wall Resp Effort & Inspection: normal respiratory effort, able to speak in complete sentences, no audible wheezes, no cough, respiratory effort not decreased, no nasal flaring and not tachypneic Auscultation: clear to auscultation bilaterally Percussion: percussion normal Cardio Rate: regular rate Rhythm: regular rhythm Skin Other: No rashes, lesions, ecchymosis or abrasions noted on the anterior or posterior chest wall. General skin exam: no rashes or lesions noted Neuro General: patient oriented x3 Extrem Other: There is no reproducible pain to palpation of the anterior chest wall, cervical or thoracic vertebrae or upper back. Psych Appearance: grossly normal Mental Status: mental status grossly normal Insight: Good insight present (Psych) Judgement: Good judgement present (Psych) Assessment & Plan Assessment & Plan (1) Pleuritic pain: Code(s): R07.81 - Pleurodynia Plan This patient's history coupled with her examination is most consistent with pleuritic pain. Patient is not in any acute distress, is afebrile and is not hypoxic. There is no reproducible pain on examination and therefore imaging is deferred at this time. Medications: New naproxen (Naprosyn) 500 mg PO BID 20 tabs 0RF Patient Instructions: Patient will be discharged home with Naprosyn to take twice daily for the next 7-10 days. Patient is instructed to return for any worsening symptoms. Coding Level of Care Code Est Pt Level 3 (65792) Diagnoses Pleuritic pain R07.81 Time Spent (min) 20
--- OUTSIDE RECORDS SUMMARY | 2025-08-08 15:33 | XMS_ITS | Clinical Summary ---
[facility] Address [address] [place] [id number] Phone Care Team Providers Care Export Agent Name Role Phone Matt Adame MD Primary Care Provider [phone]- [phone] Allergies No known active allergies Medications adapalene (DIFFERIN) 0.1 % cream Apply topically at bedtime. 5 Active tretinoin (RETIN-A) 0.05 % cream Apply topically at bedtime. 4 Active drospirenone-et hinyl estradiol-levom efolate calcium (RAFAEL DARLING) 3-0.02-0.451 mg (24) (4) per tablet Take 1 tablet by mouth 1 (one) time each day. 28 tablet 12 5 01/24/20 26 Active Medical History Medical History Date Comments No pertinent past medical history Family History Medical History Relation Name Comments covid 19 Maternal Grandmother Fibromyalgia Mother Breast cancer Other M aunt Alzheimer's disease Paternal Grandfather Diabetes Paternal Grandmother Relation Name Status Comments Father Alive Maternal Grandfather Alive Maternal Grandmother Mother Alive Other M aunt Alive Paternal Grandfather Alive Paternal Grandmother Social History Tobacco Use Types Packs/Day Years Used Date Smoking Tobacco: Never Passive Smoke Exposure: Never Smokeless Tobacco: Never Tobacco Cessation:Counseling Given: Not Answered Alcohol Use Standard Drinks/Week Comments Never 0 (1 standard drink = 0.6 oz pur e alcohol) Comments No Sex and Gender Information Value Date Recorded Sex Assigned at Not on file Legal Sex Female 9:51 AM EST Gender Identity Not on file Sexual Orientation Not on file Obstetrics History Para Term AB IAB SAB Ectopic Multiple Livin g Live Births 1 1 1 1 Date Outcome GA Total Labor Labor/2nd/3rd Weight Sex Type Anes PTL Ashanti A1 A5 Name Clin 2016 19w 0d Vag-F orcep s Demise Last Filed Vital Signs Vital Sign Reading Time Taken Comments Blood Pressure 117/67 01/24/2025 10:23 AM EDT Pulse 75 01/24/2025 10:23 AM EDT Temperature - - Respiratory Rate 18 01/24/2025 10:23 AM EDT Oxygen Saturation - - Inhaled Oxygen Concentration - - Weight 87.5 kg (193 lb) 01/24/2025 10:23 AM EDT Height 162.6 cm (5' 4 ) 01/24/2025 10:23 AM EDT Body Mass Index 33.13 01/24/2025 10:23 AM EDT Plan of Treatment Health Maintenance Due Date Last Done Comments HIV Screening 09/26/2024 Hepatitis C Screening 09/26/2024 Social Influencers of Health Screening 09/26/2024 Depression Screening 11/06/2024 COVID-19 Vaccine ( season) 2025 10/06/2023, 09/27/2021 Influenza Vaccine (#1) 2025 , 08/31/2021, 09/08/2010 Cervical Cancer Screening: Pap Smear 01/25/2028 01/24/2025, 01/24/2025 DTaP,Tdap,and Td Vaccines (7 - Td or Tdap) 03/02/2033 03/02/2023, 10/05/2000, 09/01/1997, Additional history exists RSV Immunization Adult Patients (1 - 1-dose 75+ series) 02/21/2071 IPV Vaccines Completed 10/05/2000, 01/1997, 1996, Additional history exists HIB Vaccines Completed 08/28/2009, 04/08, 01/29/1997, Additional history exists HPV Vaccines Completed 09/08/2010, 02/04, 01/16/2008 Meningococcal ACWY Vaccine Aged Out 2012, No longer eligible based on patient's age to complete this topic MMR Vaccines Completed 03/06/2023, 07/2020, 10/05/2000, Additional history exists Hepatitis B Vaccines Completed 10/11/2023, 1996, 1996, Additional history exists Hepatitis A Vaccines Aged Out No long er eligible based on patient's age to complete this topic Meningococcal B Vaccine Aged Out No l onger eligible based on patient's age to complete this topic Pneumococcal Vaccine: Pediatrics (0 to 5 Years) and At-Risk Patients (6 to 49 Years) Aged Out No longer eligible based on patient's age to complete this topic RSV Immunization Patients Under 20 months Aged Out No longer eligible based on patient's age to complete this topic Varicella Vaccines Aged Out No longer eligible based on patient's age to complete this topic Procedures Procedure Name Priority Date/Time Associated Diagnosis Comments HPV WITH REFLEX GENOTYPE Routine 01/24/2025 10:59 AM EDT Encounter for annual physical examination excluding gynecological examination in a patient older than 17 years from Last 3 Months or Most Recently Relevant to Health Maintenance Results * HPV with reflex genotype (01/24/2025 10:59 AM EDT) HPV Negative Negative LAB MICROBIOLOGY METHOD 01/28/2025 2:12 PM EDT [facility] Brushing/Spatula Cervix uteri structure / Unknown 01/24/2025 10:59 AM EDT 01/27/2025 6:21 AM EDT Candice Crisostomo CNM LAB MOLECULAR DIAGNOSTICS OR DERABLES Final Result [facility] [address] [place] [address], from Last 3 Months or Most Recently Relevant to Health Maintenance [place] [address] [place] [address] [address] [place] [id number] Care Teams Export Agent Relationship Specialty Start Date End Date Matt Adame MD [facility] [address] [place] [address] [address] [place] [address] PCP - General Internal Medicine 09/26/24
[2025-08-08 15:37] VITALS: BP 92/62; PULSE 64; RESP 16; TEMP 36.6; O2SAT 99; BMI 34.0
== END 2025-08-08 16:11 | disposition home or self-care (01) ==
PROVIDERS: PCP Nurse Practitioner Family; Visit Provider Physician Assistant
DX: R07.81 Pleurodynia (principal)

== ENCOUNTER 2025-10-20 09:41 | Outpatient (REF) | payer OTHER, SELFPAY ==
[2025-10-20 14:37] LABS: Resp Syncy Virus RNA Qual PCR NEGATIVE (Negative); SARS COV2 PCR INHOUSE NEGATIVE (Negative)
== END 2025-10-20 09:42 | disposition home or self-care (01) ==
LOC: HO.LAB 09:41
PROVIDERS: Nurse Practitioner Family; PCP Nurse Practitioner Family
DX: J06.9 Acute upper respiratory infection, unspecified (principal)
CPT/HCPCS: 87637

== ENCOUNTER 2025-10-20 09:41 | Outpatient (AMB) | payer OTHER, SELFPAY ==
[2025-10-20 10:56] VITALS: BP 104/60; PULSE 67; TEMP 36.7; O2SAT 100; BMI 34.2
--- NOTE | 2025-10-20 10:56 | MHC.OFFWIV ---
Intake Vital Signs 10/20/25 10:56 Height 5 ft 4 in Weight 199 lb BMI 34.2 BP 104/60 Blood Pressure Location Lt brachial Position Sitting Pulse 67 Pulse Source Pulse Oximeter Temp 98.1 F Temp Source Oral Pulse Oximetry (%) 100 Oxygen Delivery Method Room Air Intake Visit Reasons: EP Sore throat, congestion Intake Note: pt presents with chest congestion with productive coughing and sore throat x3 days Patient Tobacco Use Status: Never used Tobacco Allergies No Known Allergies Allergy (Verified 10/20/25 11:03) Medication List - Last Reconciled 10/20/25 by Cindy Navarrete NP adapalene 0.1% appl topical QAM cetirizine (All Day Allergy (cetirizine)) 10 mg PO DAILY PRN 90 days meloxicam 15 mg PO DAILY PRN naproxen (Naprosyn) 500 mg PO BID tretinoin 0.05% appl topical Do you need a note to return to daycare/school/sports/work: Yes HPI HPI Comments History of Present Illness Details 30 y/o Female presents with a 3-day history of upper respiratory symptoms. She reports nasal congestion, runny nose, headaches, sore throat, and cough with chest congestion and tightness. Denies shortness of breath, wheezing, or chest pain. Denies fevers, chills, nausea, or vomiting. 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 [facility] Medical History (Updated 10/20/25 @ 11:46 by Cindy Navarrete NP) Acute respiratory disease Vaginal odor Late menses COVID-19 Surgical History No pertinent past surgical history Family History Maternal Aunt Breast [place] Social History Housing: Apartment Alcohol intake: never Patient Tobacco Use Status: Never used Tobacco e-Cigarette/Vaping Use: Never Used Second Hand Smoke Exposure: No service: No Current occupational status: employed Current occupational exposures/hazards: No Cognitive needs: No Hearing needs: No Vision needs: No Female Reproductive History Menstrual Age of Menarche: 13 Review of Systems Const All systems reviewed & are unremarkable except as noted in HPI and below Physical Exam Vital Signs: Last Vital Signs Temp 98.1 F 10/20/25 10:56 Pulse 67 10/20/25 10:56 BP 104/60 10/20/25 10:56 Pulse Ox 100 10/20/25 10:56 Oxygen Delivery Method Room Air 10/20/25 10:56 BMI result Body Mass Index 34.2 Const General: no acute distress Nutritional Appearance: overweight Orientation/consciousness: patient oriented x3 HEENT Head: Yes normocephalic Ears: external ears normal and TM abnormal bulging bilateral and with fluid behind the TM bilateral General nose exam: Normal external nose present Face and sinus: Yes sinuses nontender Mouth: moist mucous membranes Throat: Yes uvula midline and Yes abnormal tonsil (Enlarged tonsils +2) Resp Effort & Inspection: normal respiratory effort, able to speak in complete sentences and no cough Auscultation: clear to auscultation bilaterally, no crackles, no rales and no rhonchi Cardio Heart sounds: S1 normal heart sound present and S2 normal heart sound present Neuro General: patient oriented x3, gait normal and moves all extremities Psych Speech and movement: Normal speech and movement present Assessment & Plan Assessment & Plan (1) Acute respiratory disease: Code(s): J06.9 - Acute upper respiratory infection, unspecified Plan: Ordered SARs. Likely viral upper respiratory infection (common cold) Differential: Acute bronchitis, early influenza, COVID-19, allergic rhinitis (given exposure to sick contacts, viral etiology most likely). Symptomatic management: Supportive care: Rest, hydration, OTC analgesics/antipyretics as needed (e.g., acetaminophen, ibuprofen) Saline nasal sprays or decongestants for congestion Honey or throat lozenges for sore throat. Monitor symptoms: Seek care if worsening shortness of breath, high fever, or chest pain develops. Orders: Orders SARS-CoV2/FLU/RSV Today J06.9 - Acute upper respiratory infection, unspecified Medications: New benzonatate 200 mg (2 x 100 mg) PO BID 60 caps 0RF J06.9 - Acute upper respiratory infection, unspecified pseudoephedrine HCl ER (Sudafed 12 Hour) 120 mg PO Q12H 30 tabs 0RF J06.9 - Acute upper respiratory infection, unspecified Coding Level of Care Code Est Pt Level 4 (01792) Diagnoses Acute respiratory disease J06.9 Time Spent (min) 20
== END 2025-10-20 11:51 | disposition home or self-care (01) ==
PROVIDERS: PCP Nurse Practitioner Family; Visit Provider Nurse Practitioner Family
DX: J06.9 Acute upper respiratory infection, unspecified (principal)